=== PATIENT | male | born 1985 | race Caucasian/White ===

== ENCOUNTER 2017-10-05 11:55 | Emergency (ER) | payer OTHER, SELFPAY ==
[2017-10-05 13:23] LABS: Absolute Lymphocytes (CBC) 1.3 K/uL (0.7-4.9); Absolute Monocytes 1.1 K/uL (0.1-1.3); Basophils % 0.4 % (0-1.3); Eosinophils % 0.2 % (0-4.4); Hematocrit 46.5 % (39.6-49.0); Lymphocytes % 13.9 % (15.3-44.8); MCH 33.3 pg (27.0-35.0); MCV 96.5 fL (80-100); MPV 8.4 fL (7.6-11.3); Monocytes % 11.6 % (3.3-12.3); RBC Red Blood Cell Count 4.82 M/uL (4.33-5.43)
[2017-10-05 13:37] LABS: Urine Blood 1+ (NEG); Urine Glucose NEGATIVE (NEG); Urine Protein 1+ (NEG); Urine Specific Gravity >1.030 (1.005-1.030); Urine pH 5.5 (5.0-7.0)
[2017-10-05 13:44] LABS: Barbiturates NEGATIVE (NEGATIVE); Benzodiazepines NEGATIVE (NEGATIVE); Cocaine NEGATIVE (NEGATIVE); METHAMPHETAM NEGATIVE (NEGATIVE); Methadone NEGATIVE (NEGATIVE); Opiates NEGATIVE (NEGATIVE); Phencyclidine NEGATIVE (NEGATIVE); THC Cannibis POSITIVE (NEGATIVE)
[2017-10-05] MEDS ORDERED: NA CHLORIDE 0.9% 1,000 ML ONE ×2 (14:15→17:44)
[2017-10-05 14:54] LABS: Protime INR 1.05
[2017-10-05 15:09] LABS: ALT/SGPT 28 U/L (12-78); AST/SGOT 40 U/L (15-37); Albumin 4.9 g/dL (3.4-5.0); Alkaline Phosphatase 48 U/L (45-117); BUN Blood Urea Nitrogen 24 mg/dL (7-18); Bicarbonate 23 mmol/L (21-32); Bilirubin Direct 0.3 mg/dL (0-0.2); Bilirubin Total 1.5 mg/dL (0.2-1.0); Glucose Level 79 mg/dL (74-106); Potassium 4.3 mmol/L (3.5-5.1); Protein, Total 8.2 g/dL (6.4-8.2); Sodium Level 136 mmol/L (136-145)
[2017-10-05 15:35] LABS: Alcohol Serum/Plasma < 3 mg/dL (0-3)
[2017-10-05] MEDS ORDERED: D5LR 1,000 ML IV ONE (17:58)
--- NOTE | 2017-10-05 18:49 | EKG ---
Test Date: 2017-10-05 Test Time: 12:43:45 Wind Turbine Technician: DIMA-Humberto MEASUREMENT RESULTS: Intervals: Rate: 108 VA: 118 QRSD: 94 QT: 334 QTc: 447 [place]: P: 15 VA: 118 QRS: 39 T: 17 INTERPRETIVE STATEMENTS: Sinus tachycardia Nonspecific T wave abnormality Abnormal ECG No previous ECG available for comparison Electronically Signed On 10-05-17 18:47:18 CDT by Boni Moon
[2017-10-05 23:43] LABS: Thyroid Stimulating Hormone 2.69 uIU/mL (0.36-3.74)
[2017-10-06] MEDS ORDERED: NA CHLORIDE 0.9% 2,000 ML ONE (00:17)
[2017-10-06] MEDS ORDERED: NA CHLORIDE 0.9% 1,000 ML ONE (00:21)
--- NOTE | 2017-10-06 09:39 | RAD REPORT ---
EXAM DESCRIPTION: CT - Head Brain Wo Cont - 10/06/2017 4:33 am CLINICAL HISTORY: Hallucinations/alteration of awareness COMPARISON: None. TECHNIQUE: Computed axial tomography of the head was obtained. IV contrast was not requested. A preliminary report was generated by [employer] and reviewed prior to this dictation All CT scans are performed using dose optimization technique as appropriate and may include automated exposure control or mA/KV adjustment according to patient size. FINDINGS: An intracranial bleed is not seen . The ventricles are normal in caliber. No extra-axial fluid collection is noted. Fluid within the sinuses/ mastoids is not seen. IMPRESSION: No acute intracranial abnormality is seen. If patient's symptoms persist MRI of the bra in would be recommended.
[2017-10-07] MEDS ORDERED: LORAZEPAM 1 MG TABLET ONE ×2 (15:21→22:43)
--- NOTE | 2017-10-08 14:07 | EDPHYS ---
Physician Documentation [facility] Name: Devon Hwang Age: 31 yrs Sex: Male : 1985 Arrival Date: 10/05/2017 Time: 11:59 Bed 20 Private MD: None, None ED Physician Sachin Rodas HPI: 10/05 18:34 This 31 yrs old Male presents to ER via Ambulatory with complaints of Psych pm1 Problem. 18:34 The patient presents to the emergency department with psychosis, has experienced pm1 auditory hallucinations, has experienced visual hallucinations, suicide ideation. Past psychiatric history: Prior diagnosis: schizophrenia, PTSD, Psychiatric medications include: none, Primary psychiatric physician: the patient does not have a primary psychiatric physician, the patient has not had a prior suicide gesture, the patient has a previous inpatient psychiatric history, 1 year(s) ago, at In [place]. Severity of symptoms: Pain is currently a 0 / 10. The patient has not recently seen a physician. Patient was brought here by his sister. Patient went to the police department this AM to report to them that he has killed his family that he is staying with, sister and her children. Police verified that he had not killed them. Patient has difficulty telling the difference between his dreams and hallucinations versus reality per sister. Sister picked up the patient and brought him tot he emergency department to be evaluated. Patient has suicidal ideation but no plan. Patient has multiple auditory hallucinations, voices of multiple family members. Patient also has visual hallucinations, not thing concrete. They are blurry or objects spinning. Historical: - Allergies: 12:10 No Known Allergies; jl7 - Home Meds: 12:10 None [Active]; jl7 - PMHx: 12:10 Schizophrenia; PTSD; jl7 - Immunization history:: Adult Immunizations unknown. - Social history:: Smoking status: Patient/guardian denies using tobacco, Patient uses alcohol, on a daily basis. street drugs, LSD, marijuana. - Ebola Screening: : No symptoms or risks identified at this time. ROS: 18:34 Constitutional: Negative for fever, chills, and weight loss, Eyes: Negative for injury, pm1 pain, redness, and discharge, ENT: Negative for injury, pain, and discharge, Neck: Negative for injury, pain, and swelling, Cardiovascular: Negative for chest pain, palpitations, and edema, Respiratory: Negative for shortness of breath, cough, wheezing, and pleuritic chest pain, Abdomen/GI: Negative for abdominal pain, nausea, vomiting, diarrhea, and constipation, Back: Negative for injury and pain, : Negative for injury, bleeding, discharge, and swelling, MS/Extremity: Negative for injury and deformity, Skin: Negative for injury, rash, and discoloration, Neuro: Negative for headache, weakness, numbness, tingling, and seizure. 18:34 Psych: Positive for auditory hallucinations, visual hallucinations, suicidal ideation, Negative for homicidal ideation, suicide gesture. Exam: 18:34 Constitutional: This is a well developed, well nourished patient who is awake, alert, pm1 and in no acute distress. Head/Face: Normocephalic, atraumatic. Eyes: Pupils equal round and reactive to light, extra-ocular motions intact. Lids and lashes normal. Conjunctiva and sclera are non-icteric and not injected. Cornea within normal limits. Periorbital areas with no swelling, redness, or edema. ENT: Nares patent. No nasal discharge, no septal abnormalities noted. Tympanic membranes are normal and external auditory canals are clear. Oropharynx with no redness, swelling, or masses, exudates, or evidence of obstruction, uvula midline. Mucous membranes moist. Neck: Trachea midline, no thyromegaly or masses palpated, and no cervical lymphadenopathy. Supple, full range of motion without nuchal rigidity, or vertebral point tenderness. No Meningismus. Chest/axilla: Normal chest wall appearance and motion. Nontender with no deformity. No lesions are appreciated. Cardiovascular: Regular rate and rhythm with a normal S1 and S2. No gallops, murmurs, or rubs. Normal PMI, no JVD. No pulse deficits. Respiratory: Lungs have equal breath sounds bilaterally, clear to auscultation and percussion. No rales, rhonchi or wheezes noted. No increased work of breathing, no retractions or nasal flaring. Abdomen/GI: Soft, non-tender, with normal bowel sounds. No distension or tympany. No guarding or rebound. No evidence of tenderness throughout. Back: No spinal tenderness. No costovertebral tenderness. Full range of motion. Skin: Warm, dry with normal turgor. Normal color with no rashes, no lesions, and no evidence of cellulitis. MS/ Extremity: Pulses equal, no cyanosis. Neurovascular intact. Full, normal range of motion. 18:34 Neuro: Orientation: to person, place, time, situation, Motor: moves all fours, strength is normal, Gait: is steady, at a normal pace, without difficulty. 18:34 Psych: Behavior/mood is cooperative, Affect is flat, Delusions/hallucinations are present and described as Patient talking to auditory hallucination while evaluating him. He reported it was a family member talking to him. Vital Signs: 12:10 BP 158 / 100; Pulse 105; Resp 18; Temp 98.7; Pulse Ox 99% ; Weight 72.57 kg; Height 5 jl7 ft. 8 in. (172.72 cm); Pain 0/10; 17:00 BP 140 / 75; Pulse 92; Resp 18; Temp 97.8(O); Pulse Ox 100% on R/A; hj 20:00 BP 144 / 82 LA Supine (auto/); Pulse 104; Resp 18; Temp 98.4(O); Pulse Ox 100% on R/A; ms1 23:02 BP 143 / 71 LA Supine (auto/); Pulse 95 MON; Resp 18; Temp 98.1(O); Pulse Ox 100% on ms1 R/A; 10/06 04:03 BP 129 / 70 LA Supine (auto/); Pulse 98 MON; Resp 18 S; Temp 98.5(O); Pulse Ox 100% on ms1 R/A; 08:06 BP 141 / 81; Pulse 91; Resp 18; Temp 97.9; Pain 0/10; wj1 12:34 BP 128 / 78; Pulse 84; Resp 16; Pulse Ox 100% on R/A; Pain 0/10; em 16:42 BP 136 / 71; Pulse 88; Resp 16; Temp 98.3(O); Pulse Ox 99% on R/A; Pain 0/10; em 18:46 BP 142 / 82; Pulse 78; Resp 18; Pulse Ox 99% on R/A; Pain 0/10; em 19:00 BP 142 / 86; Pulse 88; Resp 16; Temp 96.8; Pulse Ox 98% ; bp 22:00 BP 142 / 81; Pulse 76; Resp 18; Temp 97.8; Pulse Ox 99% on R/A; Pain 0/10; fu 10/07 01:30 BP 132 / 71 LA; Pulse 81 MON; Resp 18 S; Temp 98.7(O); Pulse Ox 99% on R/A; Pain 0/10; fu 05:42 BP 131 / 78 LA Supine; Pulse 67; Resp 16 S; Temp 97.8(O); Pulse Ox 99% on R/A; Pain fu 0/10; 07:00 BP 139 / 72; Pulse 81; Resp 17; Temp 97.6; Pulse Ox 98% ; Pain 0/10; ap 11:00 BP 138 / 80; Pulse 80; Resp 18; Temp 96.9; Pulse Ox 99% ; Pain 0/10; ap 15:00 BP 140 / 69; Pulse 83; Resp 18; Temp 96.6; Pulse Ox 97% ; Pain 0/10; ap 19:15 BP 148 / 90; Pulse 92; Resp 18; Temp 98.7; Pulse Ox 98% on R/A; mw2 23:26 BP 160 / 84; Pulse 72; Resp 17; Temp 98.0; Pulse Ox 98% on R/A; Pain 0/10; mw2 10/08 03:26 BP 143 / 88; Pulse 82; Resp 16; Temp 97.9; Pulse Ox 99% on R/A; Pain 0/10; mw2 07:26 BP 146 / 85; Pulse 88; Resp 16; Temp 97.4; Pulse Ox 98% ; Pain 0/10; ss 11:00 BP 145 / 78; Pulse 81; Resp 18; Pulse Ox 100% ; ms 14:04 BP 142 / 82; Pulse 82; Resp 18; Temp 98.2; Pulse Ox 100% ; Pain 0/10; ms 10/05 12:10 Body Mass Index 24.33 (72.57 kg, 172.72 cm) jl7 MDM: 10/05 12:37 Patient medically screened. pm1 18:45 Data reviewed: vital signs. Data interpreted: Pulse oximetry: on room air is 99 %. pm1 Interpretation: normal. 22:28 Physician consultation: Psychiatrist Gnosticist Requested CPK, CT head, and TSH. pm1 Callback with results. 10/05 12:37 Order name: Acetaminophen; Complete Time: 15:42 pm1 10/05 12:37 Order name: Basic Metabolic Panel; Complete Time: 15:42 pm1 10/05 12:37 Order name: CBC with Diff; Complete Time: 14:08 pm1 10/05 12:37 Order name: ETOH Level; Complete Time: 15:42 pm1 10/05 12:37 Order name: Hepatic Function; Complete Time: 15:42 pm1 10/05 12:37 Order name: PT-INR; Complete Time: 15:10 pm10/05 12:37 Order name: Ptt, Activated; Complete Time: 15:10 pm10/05 12:37 Order name: Salicylate; Complete Time: 15:42 pm1 10/05 12:37 Order name: Urine Drug Screen; Complete Time: 14:08 pm10/05 13:12 Order name: Urine Dipstick--Ancillary (enter results); Complete Time: 14:08 10/05 22:32 Order name: CPK; Complete Time: 23:51 pm10/05 22:32 Order name: CT Head Brain wo Cont; Complete Time: 09:54 pm10/05 22:32 Order name: TSH; Complete Time: 23:51 pm10/06 05:50 Order name: CPK; Complete Time: 06:56 2 10/05 12:37 Order name: EKG; Complete Time: 12:38 pm10/05 13:23 Order name: Diet Regular; Complete Time: 13:23 3 10/06 07:07 Order name: Diet Regular; Complete Time: 07:07 10/06 07:09 Order name: Diet Regular; Complete Time: 07:09 10/06 11:05 Order name: Diet Regular; Complete Time: 11:05 5 10/06 17:11 Order name: Diet Regular; Complete Time: 17:11 10/07 07:06 Order name: Diet Regular; Complete Time: 07:06 10/07 10:34 Order name: Diet Regular; Complete Time: 10:34 10/05 12:37 Order name: EKG - Nurse/Tech; Complete Time: 12:57 pm10/05 12:37 Order name: IV Saline Lock; Complete Time: 13:25 pm1 10/05 12:37 Order name: Labs collected and sent; Complete Time: 13:25 pm10/05 12:37 Order name: Urine Dipstick-Ancillary (obtain specimen); Complete Time: 13:09 pm1 10/05 13:34 Order name: Labs - recollect needed; Complete Time: 14:07 10/07 16:59 Order name: Diet Regular; Complete Time: 16:59 10/08 07:03 Order name: Diet Regular; Complete Time: 07:03 5 10/08 13:06 Order name: Diet Regular; Complete Time: 13:06 10/08 14:02 Order name: Vital Signs; Complete Time: 14:33 charleen Administered Medications: 14:27 Not Given (Patient Refused): NS 0.9% 1000 ml IV at 1000 ml once hj 17:50 Drug: NS 0.9% 1000 ml Route: IV; Rate: 1 bolus; Site: left forearm; 10/06 00:25 Follow up: Response: No adverse reaction; IV Status: Completed infusion [facility] 10/05 17:55 Drug: D5-LR 1000 ml Route: IV; Rate: calculated rate; Site: left forearm; 10/06 00:25 Follow up: Response: No adverse reaction; IV Status: Completed infusion [facility] 10/05 23:52 CANCELLED (Physician Discretion): NS 0.9% 1000 ml IV at 1 bolus Per protocol; 1000 mL cp bolus 10/06 00:25 Drug: NS 0.9% 1000 ml Route: IV; Rate: 1 bolus; Site: right forearm; j 00:25 Drug: NS 0.9% 1000 ml Route: IV; Rate: 1 bolus; Site: right forearm; [facility] 10/07 15:25 Drug: Ativan 2 mg Route: PO; em 17:55 Follow up: Response: No adverse reaction; Anxiety decreased em 22:41 Drug: Ativan 2 mg Route: PO; 1 10/08 06:54 Follow up: Response: No adverse reaction [facility] Disposition: 14:06 Co-signature as Attending Physician, Sachin Rodas MD I agree with the assessment and [facility] plan of care. Disposition: 10/08/17 14:06 Transfer ordered to [facility]. Diagnosis are Schizophrenia, Abuse of non-psychoactive substances. - Reason for transfer: Higher level of care. - Accepting physician is to dr benavides. - Condition is Stable. - Problem is new. - Symptoms have improved. Signatures: Dispatcher [employer] EDMS DirZofia wang Corey, MD MD cha Munoz, Edgar, ECHOCARDIOLOGIST ECHOCARDIOLOGIST Denis Luna MD MD rn Joaquin, Henry RN RN Sachin Moran, LUIS SMITH cp Tito Carvajal, SENIOR SOFTWARE PROJECT MANAGER SENIOR SOFTWARE PROJECT MANAGER pm1 Leeroy Martinez, ABDIFATAH RN jl7 Jose A Cruz MD MD wa Davies, Jonathon RN RN jd3 Pauline Anthony RN RN bs1 Corrections: (The following items were deleted from the chart) 10/05 23:52 23:52 NS 0.9% 1000 ml IV at 1 bolus Per protocol; 1000 mL bolus ordered. cp cp 10/08 16:19 14:06 10/08/2017 14:06 Transfer ordered to [facility]. Diagnosis is Schizophrenia; hj Abuse of non-psychoactive substances. Reason for transfer: Higher level of care. Accepting physician is to dr benavides. Condition is Stable. Problem is new. Symptoms have improved. charleen
--- NOTE | 2017-10-08 14:07 | ER ---
Nurse's Notes [facility] Name: Devon Hwang Age: 31 yrs Sex: Male : 1985 Arrival Date: 10/05/2017 Time: 11:59 Bed 20 Private MD: None, None Diagnosis: Schizophrenia;Abuse of non-psychoactive substances Presentation: 10/05 12:07 Presenting complaint: Patient states: "I'm having a real schizophrenic trip.". jl7 Transition of care: patient was not received from another setting of care. Onset of symptoms was October 05, 2017. Risk Assessment: Do you want to hurt yourself or someone else? Patient reports desire/thoughts of hurting themselves or someone else. Provider notified. Initial Sepsis Screen: Does the patient meet any 2 criteria? No. Patient's initial sepsis screen is negative. Does the patient have a suspected source of infection? No. Patient's initial sepsis screen is negative. 12:07 [facility] 12[facility] Care prior to arrival: None. hj Triage Assessment: 12:45 General: Appears in no apparent distress. uncomfortable, Behavior is calm, cooperative, hj appropriate for age. Pain: Denies pain. EENT: No signs and/or symptoms were reported regarding the EENT system. Neuro: Level of Consciousness is awake, alert, obeys commands, Oriented to person, place, time, situation, Appropriate for age. Cardiovascular: Capillary refill < 3 seconds Patient's skin is warm and dry. Respiratory: Airway is patent Respiratory effort is even, unlabored, Respiratory pattern is regular, symmetrical. GI: No signs and/or symptoms were reported involving the gastrointestinal system. : No signs and/or symptoms were reported regarding the genitourinary system. Derm: No signs and/or symptoms reported regarding the dermatologic system. Musculoskeletal: No signs and/or symptoms reported regarding the musculoskeletal system. Historical: - Allergies: 12:10 No Known Allergies; jl7 - Home Meds: 12:10 None [Active]; jl7 - PMHx: 12:10 Schizophrenia; PTSD; jl7 - Immunization history:: Adult Immunizations unknown. - Social history:: Smoking status: Patient/guardian denies using tobacco, Patient uses alcohol, on a daily basis. street drugs, LSD, marijuana. - Ebola Screening: : No symptoms or risks identified at this time. Screenin:44 Abuse screen: Denies threats or abuse. Denies injuries from another. Nutritional hj screening: No deficits noted. Tuberculosis screening: No symptoms or risk factors identified. Fall Risk None identified. Assessment: 13:15 General: Appears in no apparent distress. uncomfortable, Behavior is calm, cooperative, hj appropriate for age. Pain: Denies pain. Neuro: Level of Consciousness is awake, alert, obeys commands, Oriented to person, place, time, situation, Appropriate for age Reports schiz trip for 3-4 days in the [place];. Cardiovascular: Denies chest pain, Capillary refill < 3 seconds Patient's skin is warm and dry. Respiratory: Airway is patent Respiratory effort is even, unlabored, Respiratory pattern is regular, symmetrical. GI: No signs and/or symptoms were reported involving the gastrointestinal system. : No signs and/or symptoms were reported regarding the genitourinary system. EENT: No signs and/or symptoms were reported regarding the EENT system. Derm: No signs and/or symptoms reported regarding the dermatologic system. Musculoskeletal: No signs and/or symptoms reported regarding the musculoskeletal system. 14:28 Reassessment: pt pulled the IV out and refused IV fluids;. hj 14:28 Reassessment: provider aware;. hj 14:44 Reassessment: encouraged to drink more water; gave 3 cups of water with ice;. hj 15:15 Reassessment: ruy guaman was called, when pt tried to run outside the room because in hj his head, voices "was telling him his family was in trouble and he wanted to help" and then he sees blurry characters; he went outside the lobby on pt gown and blanket, security brought him back to the room; provider spoke with him;. 15:48 Reassessment: Lexi- pt's sister- [phone]. hj 15:58 Reassessment: sister back in the room; provider informed;. hj 16:06 Reassessment: sister with provider discussing pt case;. hj 16:43 Reassessment: new sitter with patient;. hj 17:45 Reassessment: Patient and/or family updated on plan of care and expected duration. Pain hj level reassessed. Patient is alert, oriented x 3, equal unlabored respirations, skin warm/dry/pink. [facility] Rep in room;. Reassessment: Patient and/or family updated on plan of care and expected duration. Pain level reassessed. Patient is alert, oriented x 3, equal unlabored respirations, skin warm/dry/pink. pt agreed for RN to start another IV and promised not to pull it out and understands the goal of bringing his ketones down;. 18:29 Reassessment: Patient and/or family updated on plan of care and expected duration. Pain hj level reassessed. Patient is alert, oriented x 3, equal unlabored respirations, skin warm/dry/pink. [facility] Rep done with visit;. 19:11 Reassessment: Patient appears in no apparent distress at this time. No changes from [facility] previously documented assessment. Patient and/or family updated on plan of care and expected duration. Pain level reassessed. Patient is alert, oriented x 3, equal unlabored respirations, skin warm/dry/pink. pt reassured that if he needs help to ask nurse. 19:20 Reassessment: pt pulled out IV stating "I thought I heard my family calling me jd3 outside." pt reassured that no one was here. pt resting in bed, provider notified, no new orders at this time. 19:25 Reassessment: pt encouraged per providers instruction to drink water. jd3 20:00 Reassessment: Patient appears in no apparent distress at this time. Patient and/or jd3 family updated on plan of care and expected duration. Pain level reassessed. Patient is alert, oriented x 3, equal unlabored respirations, skin warm/dry/pink. family/friend at bedside. 20:27 Reassessment: Patient appears in no apparent distress at this time. pt up to bedside to jd3 urinate. 21:00 Reassessment: Patient appears in no apparent distress at this time. Patient and/or jd3 family updated on plan of care and expected duration. Pain level reassessed. Patient is alert, oriented x 3, equal unlabored respirations, skin warm/dry/pink. pt resting in bed, family/friend at bedside. no distress noted at this time. 22:00 Reassessment: Patient appears in no apparent distress at this time. No changes from jd3 previously documented assessment. Patient and/or family updated on plan of care and expected duration. Pain level reassessed. Patient is alert, oriented x 3, equal unlabored respirations, skin warm/dry/pink. 23:00 Reassessment: Patient appears in no apparent distress at this time. No changes from jd3 previously documented assessment. Patient and/or family updated on plan of care and expected duration. Pain level reassessed. Patient is alert, oriented x 3, equal unlabored respirations, skin warm/dry/pink. 23:04 Reassessment: lab at bedside drawing blood. jd3 10/06 00:00 Reassessment: Patient appears in no apparent distress at this time. No changes from jd3 previously documented assessment. Patient and/or family updated on plan of care and expected duration. Pain level reassessed. Patient is alert, oriented x 3, equal unlabored respirations, skin warm/dry/pink. 01:00 Reassessment: Patient appears in no apparent distress at this time. Patient and/or [facility] family updated on plan of care and expected duration. Pain level reassessed. Patient is alert, oriented x 3, equal unlabored respirations, skin warm/dry/pink. pt resting in bed with eyes closed, even and unlabored respirations, no distress noted a this time. 02:00 Reassessment: Patient appears in no apparent distress at this time. No changes from jd3 previously documented assessment. Patient and/or family updated on plan of care and expected duration. Pain level reassessed. Patient is alert, oriented x 3, equal unlabored respirations, skin warm/dry/pink. 03:00 Reassessment: Patient appears in no apparent distress at this time. No changes from jd3 previously documented assessment. Patient and/or family updated on plan of care and expected duration. Pain level reassessed. Patient is alert, oriented x 3, equal unlabored respirations, skin warm/dry/pink. 04:00 Reassessment: Patient appears in no apparent distress at this time. No changes from jd3 previously documented assessment. Patient and/or family updated on plan of care and expected duration. Pain level reassessed. Patient is alert, oriented x 3, equal unlabored respirations, skin warm/dry/pink. 05:00 Reassessment: Patient appears in no apparent distress at this time. No changes from jd3 previously documented assessment. Patient and/or family updated on plan of care and expected duration. Pain level reassessed. Patient is alert, oriented x 3, equal unlabored respirations, skin warm/dry/pink. 06:00 Reassessment: Patient appears in no apparent distress at this time. No changes from jd3 previously documented assessment. Patient and/or family updated on plan of care and expected duration. Pain level reassessed. Patient is alert, oriented x 3, equal unlabored respirations, skin warm/dry/pink. 06:03 Reassessment: lab at bedside collecting repeat labs. jd3 07:05 General: Appears in no apparent distress. comfortable, Behavior is calm, cooperative, em Reports hearing auditory hallucinations, "people having conversations, but not telling me to hurt myself, I can't tell if its real or not, I think my sister was here yesterday but I might have just hallucinated it" reports feeling better, denies SI or HI. Pain: Denies pain. Neuro: Level of Consciousness is awake, alert, obeys commands, Oriented to person, place, time, situation. Cardiovascular: Capillary refill < 3 seconds Patient's skin is warm and dry. Respiratory: Airway is patent Respiratory effort is even, unlabored, Respiratory pattern is regular, symmetrical. GI: Abdomen is flat. : No signs and/or symptoms were reported regarding the genitourinary system. EENT: No signs and/or symptoms were reported regarding the EENT system. Derm: Skin is intact, Skin is pink, warm \\T\\ dry. Musculoskeletal: Range of motion: intact in all extremities. 08:10 Reassessment: Patient appears in no apparent distress at this time. I agree with above iw assessment by Juan Crockett LVN. 08:30 Reassessment: Patient appears in no apparent distress at this time. Patient and/or em family updated on plan of care and expected duration. Pain level reassessed. Patient is alert, oriented x 3, equal unlabored respirations, skin warm/dry/pink. 09:30 Reassessment: Patient appears in no apparent distress at this time. Patient and/or em family updated on plan of care and expected duration. Pain level reassessed. Patient is alert, oriented x 3, equal unlabored respirations, skin warm/dry/pink. eating breakfast tray, tolerated well, no needs at this time. 10:34 Reassessment: Patient and/or family updated on plan of care and expected duration. Pain em level reassessed. Patient is alert, oriented x 3, equal unlabored respirations, skin warm/dry/pink. pt request to use phone, used phone at nurse station, spoke with sister Yaz), calm and cooperative. 11:17 Reassessment: Patient appears in no apparent distress at this time. Patient and/or em family updated on plan of care and expected duration. Pain level reassessed. Patient is alert, oriented x 3, equal unlabored respirations, skin warm/dry/pink. Sister at bedside. 12:37 Reassessment: Patient appears in no apparent distress at this time. Patient and/or em family updated on plan of care and expected duration. Pain level reassessed. Patient is alert, oriented x 3, equal unlabored respirations, skin warm/dry/pink. currently eating lunch tray, tolerated well. 14:21 Reassessment: Patient appears in no apparent distress at this time. Patient and/or em family updated on plan of care and expected duration. Pain level reassessed. Patient is alert, oriented x 3, equal unlabored respirations, skin warm/dry/pink. no needs at this time, waiting for facility. 15:28 Reassessment: Patient appears in no apparent distress at this time. Patient and/or em family updated on plan of care and expected duration. Pain level reassessed. Patient is alert, oriented x 3, equal unlabored respirations, skin warm/dry/pink. resting with eyes closed. 17:50 Reassessment: Patient appears in no apparent distress at this time. Patient and/or em family updated on plan of care and expected duration. Pain level reassessed. Patient is alert, oriented x 3, equal unlabored respirations, skin warm/dry/pink. Patient denies pain at this time. 18:09 Reassessment: Patient appears in no apparent distress at this time. request some ice em water, pt still currently has auditory hallucinations, reports "just too much to handle, but I'll be ok, not telling me anything just talking" denies SI or HI. 19:00 Reassessment: RECD REPORT FROM JUAN GARDINER. 31YO WM P/W +AUDITORY HALLUCINATION, DENIES bp SI/HI. DISPOSITION AND POSSIBLE PSYCH PLACEMENT PENDING. 19:22 General: Appears in no apparent distress. comfortable, Behavior is calm, cooperative, fu appropriate for age. Pain: Denies pain. Neuro: Level of Consciousness is awake, alert, obeys commands, Oriented to person, place, situation, unable to remember the date and day of the week. Patient oriented to today's date, time and day.. Respiratory: Airway is patent Respiratory effort is even, unlabored, Respiratory pattern is regular, symmetrical. GI: No signs and/or symptoms were reported involving the gastrointestinal system. stated last BM was couple of days ago. : No signs and/or symptoms were reported regarding the genitourinary system. EENT: No signs and/or symptoms were reported regarding the EENT system. Derm: Skin is intact, Skin is pink, warm \\T\\ dry. 20g IV access to right forearm. Musculoskeletal: Range of motion: intact in all extremities. 20:50 Reassessment: Patient appears in no apparent distress at this time. Patient is alert, fu oriented x 3, equal unlabored respirations, skin warm/dry/pink. Patient denies pain at this time. Respiratory: Airway is patent Respiratory effort is even, unlabored, Respiratory pattern is regular, symmetrical. : No signs and/or symptoms were reported regarding the genitourinary system. 21:50 Reassessment: Patient appears in no apparent distress at this time. Patient is alert, fu oriented x 3, equal unlabored respirations, skin warm/dry/pink. Patient denies pain at this time. patient reports auditory and visual hallucinations.. 22:40 Reassessment: Patient appears in no apparent distress at this time. Patient is alert, fu oriented x 3, equal unlabored respirations, skin warm/dry/pink. Patient denies pain at this time. Respiratory: Airway is patent Respiratory effort is even, unlabored, Respiratory pattern is regular, symmetrical. : No signs and/or symptoms were reported regarding the genitourinary system. Musculoskeletal: No signs and/or symptoms reported regarding the musculoskeletal system. Range of motion: intact in all extremities. 23:29 Reassessment: Patient appears in no apparent distress at this time. Patient is alert, fu oriented x 3, equal unlabored respirations, skin warm/dry/pink. watching TV.. Neuro: Level of Consciousness is awake, alert, obeys commands, Oriented to person, place, situation, Appropriate for age. Neuro: Reports auditory, visual hallucinations. Respiratory: Airway is patent Respiratory effort is even, unlabored, Respiratory pattern is regular, symmetrical. Musculoskeletal: No signs and/or symptoms reported regarding the musculoskeletal system. Range of motion: intact in all extremities. 10/07 00:24 Reassessment: Patient appears in no apparent distress at this time. Pain: Denies pain. fu Neuro: Level of Consciousness is awake, alert, obeys commands, Oriented to person, place, situation, Appropriate for age. Neuro: Denies weakness headache. Respiratory: Airway is patent Respiratory effort is even, unlabored, Respiratory pattern is regular, symmetrical. Musculoskeletal: No signs and/or symptoms reported regarding the musculoskeletal system. Range of motion: intact in all extremities. 01:17 Reassessment: Patient appears in no apparent distress at this time. Pain: Denies pain. fu Neuro: Level of Consciousness is awake, alert, obeys commands, Oriented to person, place, situation, Moves all extremities. Gait is steady. Cardiovascular: Denies chest pain, Capillary refill < 3 seconds. Respiratory: Airway is patent Respiratory pattern is regular, symmetrical, Denies cough. GI: Patient currently denies abdominal pain. Musculoskeletal: No signs and/or symptoms reported regarding the musculoskeletal system. 02:01 Reassessment: Patient appears in no apparent distress at this time. Pain: Denies pain. fu Neuro: Level of Consciousness is awake, alert, obeys commands, Oriented to person, place, time, situation, Moves all extremities. Gait is steady. Respiratory: Airway is patent Respiratory effort is even, unlabored, Respiratory pattern is regular, symmetrical, Denies shortness of breath. 03:00 Reassessment: Patient appears in no apparent distress at this time. Patient is alert, fu oriented x 3, equal unlabored respirations, skin warm/dry/pink. Patient denies pain at this time. Respiratory: Airway is patent Respiratory effort is even, unlabored, Respiratory pattern is regular, symmetrical, Denies shortness of breath. 04:01 Reassessment: appears to be sleeping. Respiratory: Respiratory effort is even, fu unlabored, Respiratory pattern is regular, symmetrical. 05:34 Reassessment: Patient appears in no apparent distress at this time. Patient is alert, fu oriented x 3, equal unlabored respirations, skin warm/dry/pink. Patient denies pain at this time. 06:04 Reassessment: Patient appears in no apparent distress at this time. Pain: Denies pain. fu Neuro: Level of Consciousness is awake, alert, obeys commands, Oriented to person, place, situation, Appropriate for age Moves all extremities. Gait is steady, Denies weakness. Cardiovascular: Capillary refill < 3 seconds Patient's skin is warm and dry. Respiratory: Airway is patent Respiratory effort is even, unlabored, Respiratory pattern is regular, symmetrical, Denies shortness of breath. : No signs and/or symptoms were reported regarding the genitourinary system. EENT: No signs and/or symptoms were reported regarding the EENT system. Derm: No signs and/or symptoms reported regarding the dermatologic system. Musculoskeletal: No signs and/or symptoms reported regarding the musculoskeletal system. Range of motion: intact in all extremities. 07:07 Reassessment: Patient appears in no apparent distress at this time. Patient and/or em family updated on plan of care and expected duration. Pain level reassessed. Patient is alert, oriented x 3, equal unlabored respirations, skin warm/dry/pink. "I have 3 voices that stick around, they just have a conversation and I just listen, they don't tell me to hurt myself or anything" Patient denies pain at this time. 08:29 Reassessment: Patient appears in no apparent distress at this time. Patient and/or em family updated on plan of care and expected duration. Pain level reassessed. Patient is alert, oriented x 3, equal unlabored respirations, skin warm/dry/pink. 11:30 Reassessment: Patient appears in no apparent distress at this time. Patient and/or em family updated on plan of care and expected duration. Pain level reassessed. Patient is alert, oriented x 3, equal unlabored respirations, skin warm/dry/pink. eating lunch tray, no needs at this time. 13:38 Reassessment: Patient appears in no apparent distress at this time. Patient and/or em family updated on plan of care and expected duration. Pain level reassessed. Patient is alert, oriented x 3, equal unlabored respirations, skin warm/dry/pink. family at bedside. 15:01 Reassessment: Patient appears in no apparent distress at this time. Patient and/or em family updated on plan of care and expected duration. Pain level reassessed. Patient is alert, oriented x 3, equal unlabored respirations, skin warm/dry/pink. pt request something to sleep, still hears voices. 16:00 Reassessment: Patient appears in no apparent distress at this time. Patient and/or em family updated on plan of care and expected duration. Pain level reassessed. Patient is alert, oriented x 3, equal unlabored respirations, skin warm/dry/pink. no needs at this time. 17:00 Reassessment: Patient appears in no apparent distress at this time. Patient and/or em family updated on plan of care and expected duration. Pain level reassessed. Patient is alert, oriented x 3, equal unlabored respirations, skin warm/dry/pink. 18:00 Reassessment: Patient appears in no apparent distress at this time. Patient and/or em family updated on plan of care and expected duration. Pain level reassessed. Patient is alert, oriented x 3, equal unlabored respirations, skin warm/dry/pink. pt requesting more Ativan states it helped him and wants some later in the evening, Dr. Rodas notified. 19:10 Reassessment: Report received from CHANCE Mei. bs1 19:10 General: Appears in no apparent distress. comfortable, Behavior is calm, cooperative, bs1 appropriate for age. Pain: Denies pain. Neuro: Level of Consciousness is awake, alert, obeys commands, Oriented to person, place, time, situation, Appropriate for age. Cardiovascular: Denies chest pain, shortness of breath, Heart tones S1 S2 Capillary refill < 3 seconds Patient's skin is warm and dry. Respiratory: Airway is patent Trachea midline Respiratory effort is even, unlabored, Respiratory pattern is regular, symmetrical, Breath sounds are clear bilaterally. GI: No signs and/or symptoms were reported involving the gastrointestinal system. : No signs and/or symptoms were reported regarding the genitourinary system. EENT: No signs and/or symptoms were reported regarding the EENT system. Derm: Skin is intact. Musculoskeletal: No signs and/or symptoms reported regarding the musculoskeletal system. 19:30 Reassessment: Patients Aunt "Alondra Benavidez" Left her number for nurse to call when bs1 patient gets transferred. [phone]. Patients states "You may release information to my aunt." Patient has been staying with Aunt prior to hospitalization. 20:00 Reassessment: Refilled patients water jug. bs1 21:00 Reassessment: Patient appears in no apparent distress at this time. Patient and/or bs1 family updated on plan of care and expected duration. Pain level reassessed. Patient is alert, oriented x 3, equal unlabored respirations, skin warm/dry/pink. Patient lying in bed. No distress noted. Hearing voices, talking to himself. 22:25 Reassessment: Informed Dr Leal that patient is requesting Ativan PO. gave nurse bs1 verbal orders to give ativan 2mg po x1. 10/08 00:00 Reassessment: Patient appears in no apparent distress at this time. Patient sleeping bs1 after giving PO Ativan. Even respirations. Resting well. No further needs at this time. Sitter at bedside. 01:00 Reassessment: Patient appears in no apparent distress at this time. No changes from bs1 previously documented assessment. 02:30 Reassessment: Patient appears in no apparent distress at this time. Patient snoring. bs1 Even respirations. No needs at this time. 04:30 Reassessment: Patient appears in no apparent distress at this time. No changes from bs1 previously documented assessment. No further needs. Will continue to assess. 06:45 Reassessment: Patient appears in no apparent distress at this time. Patient and/or bs1 family updated on plan of care and expected duration. Pain level reassessed. Patient is alert, oriented x 3, equal unlabored respirations, skin warm/dry/pink. No further needs. 07:10 General: Appears in no apparent distress. comfortable, Behavior is calm, cooperative, hj appropriate for age. Pain: Denies pain. Neuro: Level of Consciousness is awake, alert, obeys commands, Oriented to person, place, time, situation, Appropriate for age Moves all extremities. Gait is steady, Reports auditory hallucination. Cardiovascular: Denies chest pain, shortness of breath, Heart tones S1 S2 present Capillary refill < 3 seconds Patient's skin is warm and dry. GI: No signs and/or symptoms were reported involving the gastrointestinal system. : No signs and/or symptoms were reported regarding the genitourinary system. EENT: No signs and/or symptoms were reported regarding the EENT system. Derm: No signs and/or symptoms reported regarding the dermatologic system. Musculoskeletal: No signs and/or symptoms reported regarding the musculoskeletal system. 09:00 Reassessment: Spoke with Rosalina with [facility] who reports that she has called [facility] who reported to her that they have three beds available. Still have not received acceptance from facility at this time. 09:35 Reassessment: requested forms faxed to [facility]. Will call [facility] back to see if forms were received. 10:00 Reassessment: Called Abby with [facility] who reports she has not ss received requested forms. Will resend now. 12:12 Reassessment: faxed voluntary form to [facility] as requested. Will call [facility] back in a few minutes to see if she received fax. 12:21 Reassessment: spoke with Raudel at [facility] who reports that [facility] has stepped out and will be back shortly. Awaiting numbers to give doc to doc report and nurse to nurse. 15:00 Reassessment: Spoke with Abby with [facility] who reports to call back ss in 10 minutes to given nurse to nurse report. 15:10 Reassessment: Patient and/or family updated on plan of care and expected duration. Pain hj level reassessed. Patient is alert, oriented x 3, equal unlabored respirations, skin warm/dry/pink. attempted to call report and spoke with ABDIFATAH Hale, first attempt, nurse refused to give report because, she doesn't know, Dr. Barahona, hanged up and spoke to [facility] church secretary, called [facility] facility; to update me for info;. 15:10 Reassessment: called report and spoke with ABDIFATAH Hale with no questions;. Psych: 10/05 12:12 Subjective: Patient's mood is hopeless, Delusions are grandiose, Hallucinations are jl7 auditory, suspected, Having thoughts of suicide. Denies suicidal plan. Objective: Patient is cooperative, using poor eye contact, Speech is rapid, Affect is blunted. 13:16 Interventions: Removed personal items and placed in bag. Patient placed in hospital hj gown. Searched person for dangerous items. Urine collected and sent for urine drug test. Belonging list filled out. Suicide Risk Assessment: Sad Person Scale: Sex of patient: Male: Score 1 point. Age of patient: Score 1 point if patient 15-34. Depression: Score 0 point if signs of depression are not present. Previous Attempt: Score 0 point if patient has not previously attempted suicide. Substance Abuse: Score 1 point if patient abuses alcohol or drugs. Rational Thinking: Score 0 point if patient has rational thinking. Social Support: Score 1 point if social support is lacking and/or unavailable. Organized Plan: Score 0 if patient did not have an organized plan in place. Relationship: Score 1 point if patient is , , , or for a single male Chronic Sickness: Score 1 point if patient has illness, chronic, debilitating, or severe. Safety Checks: Personal items have been removed. Door is open. No visitors are present at this time. Patient uses Patient uses marijuana. Commitment: Patient will be a voluntary commitment. Vital Signs: 12:10 BP 158 / 100; Pulse 105; Resp 18; Temp 98.7; Pulse Ox 99% ; Weight 72.57 kg; Height 5 jl7 ft. 8 in. (172.72 cm); Pain 0/10; 17:00 BP 140 / 75; Pulse 92; Resp 18; Temp 97.8(O); Pulse Ox 100% on R/A; hj 20:00 BP 144 / 82 LA Supine (auto/); Pulse 104; Resp 18; Temp 98.4(O); Pulse Ox 100% on R/A; ms1 23:02 BP 143 / 71 LA Supine (auto/); Pulse 95 MON; Resp 18; Temp 98.1(O); Pulse Ox 100% on ms1 R/A; 10/06 04:03 BP 129 / 70 LA Supine (auto/); Pulse 98 MON; Resp 18 S; Temp 98.5(O); Pulse Ox 100% on ms1 R/A; 08:06 BP 141 / 81; Pulse 91; Resp 18; Temp 97.9; Pain 0/10; wj1 12:34 BP 128 / 78; Pulse 84; Resp 16; Pulse Ox 100% on R/A; Pain 0/10; em 16:42 BP 136 / 71; Pulse 88; Resp 16; Temp 98.3(O); Pulse Ox 99% on R/A; Pain 0/10; em 18:46 BP 142 / 82; Pulse 78; Resp 18; Pulse Ox 99% on R/A; Pain 0/10; em 19:00 BP 142 / 86; Pulse 88; Resp 16; Temp 96.8; Pulse Ox 98% ; bp 22:00 BP 142 / 81; Pulse 76; Resp 18; Temp 97.8; Pulse Ox 99% on R/A; Pain 0/10; fu 10/07 01:30 BP 132 / 71 LA; Pulse 81 MON; Resp 18 S; Temp 98.7(O); Pulse Ox 99% on R/A; Pain 0/10; fu 05:42 BP 131 / 78 LA Supine; Pulse 67; Resp 16 S; Temp 97.8(O); Pulse Ox 99% on R/A; Pain fu 0/10; 07:00 BP 139 / 72; Pulse 81; Resp 17; Temp 97.6; Pulse Ox 98% ; Pain 0/10; ap 11:00 BP 138 / 80; Pulse 80; Resp 18; Temp 96.9; Pulse Ox 99% ; Pain 0/10; ap 15:00 BP 140 / 69; Pulse 83; Resp 18; Temp 96.6; Pulse Ox 97% ; Pain 0/10; ap 19:15 BP 148 / 90; Pulse 92; Resp 18; Temp 98.7; Pulse Ox 98% on R/A; mw2 23:26 BP 160 / 84; Pulse 72; Resp 17; Temp 98.0; Pulse Ox 98% on R/A; Pain 0/10; mw2 07/23 03:26 BP 143 / 88; Pulse 82; Resp 16; Temp 97.9; Pulse Ox 99% on R/A; Pain 0/10; mw2 07:26 BP 146 / 85; Pulse 88; Resp 16; Temp 97.4; Pulse Ox 98% ; Pain 0/10; ss 11:00 BP 145 / 78; Pulse 81; Resp 18; Pulse Ox 100% ; ms 14:04 BP 142 / 82; Pulse 82; Resp 18; Temp 98.2; Pulse Ox 100% ; Pain 0/10; ms 10/05 12:10 Body Mass Index 24.33 (72.57 kg, 172.72 cm) jl7 ED Course: 10/05 11:59 Patient arrived in ED. mr 11:59 None, None is Private Physician. mr 12:09 Triage completed. jl7 12:10 Arm band placed on right wrist. jl7 12:37 Tito Carvajal, HEAD OF [employer] is PHCP. pm1 12:37 Denis Ocasio MD is Attending Physician. pm1 12:44 Sebas Lua, ABDIFATAH is Primary Nurse. hj 12:49 EKG done, by mail carrier technician. reviewed by Tito Carvajal NP. 3 13:09 Urine collected: clean catch specimen, keya colored. dh3 13:15 Initial lab(s) drawn, by me, sent to lab. Inserted saline lock: 22 gauge in right hj forearm, using aseptic technique. Blood collected. 13:17 Patient has correct armband on for positive identification. Placed in gown. Bed in low hj position. Call light in reach. Side rails up X 1. 13:18 Safety Checks: Personal items have been removed. at the nurses station; shoes,pants, hj belt, t shirt The door is open or patient has been placed in a hallway bed/chair. There are no family/friend visitors at this time Sitter present at this time. 13:18 Safety checks: Items removed: yes. Door open/sign placed on door: yes. Family/friend tm3 present: no. Sitter present: Yes. 13:30 Safety Checks: Personal items have been removed. The door is open or patient has been hj placed in a hallway bed/chair. There are no family/friend visitors at this time Sitter present at this time. 13:35 Safety checks: Items removed: yes. Door open/sign placed on door: yes. Family/friend tm3 present: no. Sitter present: Yes. 13:45 Safety Checks: Personal items have been removed. The door is open or patient has been hj placed in a hallway bed/chair. There are no family/friend visitors at this time Sitter present at this time. 13:54 Safety checks: Items removed: yes. Door open/sign placed on door: yes. Family/friend tm3 present: yes. Sitter present: Yes. 14:00 Safety Checks: Personal items have been removed. The door is open or patient has been hj placed in a hallway bed/chair. There are no family/friend visitors at this time Sitter present at this time. 14:15 Safety Checks: Personal items have been removed. The door is open or patient has been hj placed in a hallway bed/chair. There are no family/friend visitors at this time Sitter present at this time. 14:17 Safety checks: Items removed: yes. Door open/sign placed on door: yes. Family/friend tm3 present: no. Sitter present: Yes. 14:23 Lab(s) recollected, by ear mold laboratory technician, sent to lab. tm3 14:30 Safety Checks: Personal items have been removed. The door is open or patient has been hj placed in a hallway bed/chair. There are no family/friend visitors at this time. 14:33 Safety checks: Items removed: yes. Door open/sign placed on door: yes. Family/friend tm3 present: no. Sitter present: Yes. Diet: Pt. at beside eating regular diet tray . 14:45 Safety Checks: Personal items have been removed. The door is open or patient has been hj placed in a hallway bed/chair. There are no family/friend visitors at this time Sitter present at this time. 14:45 Safety checks: Items removed: yes. Door open/sign placed on door: yes. Family/friend jb1 present: no. Sitter present: Yes. 15:00 Safety Checks: Personal items have been removed. The door is open or patient has been hj placed in a hallway bed/chair. There are no family/friend visitors at this time Sitter present at this time. 15:00 Safety checks: Items removed: yes. Door open/sign placed on door: yes. Family/friend jb1 present: no. Sitter present: Yes. 15:15 Safety Checks: Personal items have been removed. The door is open or patient has been hj placed in a hallway bed/chair. There are no family/friend visitors at this time Sitter present at this time. 15:22 Safety checks: Items removed: yes. Door open/sign placed on door: yes. Family/friend jb1 present: no. Sitter present: Yes. 15:30 Safety Checks: Personal items have been removed. The door is open or patient has been hj placed in a hallway bed/chair. There are no family/friend visitors at this time. 15:45 Safety Checks: Personal items have been removed. The door is open or patient has been hj placed in a hallway bed/chair. A family member and/or friend is present and encouraged to stay. There are no family/friend visitors at this time Sitter present at this time. 15:45 Safety checks: Items removed: yes. Door open/sign placed on door: yes. Family/friend jb1 present: no. Sitter present: Yes. 15:58 Safety checks: Items removed: yes. Door open/sign placed on door: yes. Family/friend jb1 present: yes. Sitter present: Yes. 16:00 Safety Checks: Personal items have been removed. The door is open or patient has been hj placed in a hallway bed/chair. A family member and/or friend is present and encouraged to stay. Sitter present at this time. 16:12 Safety checks: Items removed: yes. Door open/sign placed on door: yes. Family/friend jb1 present: yes. Sitter present: Yes. 16:15 Safety Checks: Personal items have been removed. The door is open or patient has been hj placed in a hallway bed/chair. A family member and/or friend is present and encouraged to stay. Sitter present at this time. 16:30 Safety Checks: Personal items have been removed. The door is open or patient has been hj placed in a hallway bed/chair. A family member and/or friend is present and encouraged to stay. Sitter present at this time. 16:33 Safety checks: Items removed: yes. Door open/sign placed on door: yes. Family/friend vs1 present: yes. Family/friends encouraged to stay with patient. Sitter present: Yes. 16:45 Safety Checks: Personal items have been removed. The door is open or patient has been hj placed in a hallway bed/chair. There are no family/friend visitors at this time Sitter present at this time. 16:48 Safety checks: Items removed: yes. Door open/sign placed on door: yes. Family/friend vs1 present: yes. Family/friends encouraged to stay with patient. Sitter present: Yes. 17:00 Safety Checks: Personal items have been removed. The door is open or patient has been hj placed in a hallway bed/chair. There are no family/friend visitors at this time. 17:03 Safety checks: Items removed: yes. Door open/sign placed on door: yes. Family/friend vs1 present: yes. Family/friends encouraged to stay with patient. Sitter present: Yes. 17:15 Safety Checks: Personal items have been removed. The door is open or patient has been hj placed in a hallway bed/chair. There are no family/friend visitors at this time. 17:18 Safety checks: Items removed: yes. Door open/sign placed on door: yes. Family/friend vs1 present: yes. Family/friends encouraged to stay with patient. Sitter present: Yes. 17:30 Safety Checks: Personal items have been removed. The door is open or patient has been hj placed in a hallway bed/chair. There are no family/friend visitors at this time. 17:36 Safety checks: Items removed: yes. Door open/sign placed on door: yes. Family/friend vs1 present: no. Sitter present: Yes. 17:45 Safety Checks: Personal items have been removed. The door is open or patient has been hj placed in a hallway bed/chair. There are no family/friend visitors at this time Sitter present at this time. 17:49 Inserted saline lock: 24 gauge in left forearm, using aseptic technique. hj 17:52 Safety checks: Items removed: yes. Door open/sign placed on door: yes. Family/friend vs1 present: no. Sitter present: Yes. 18:00 Safety Checks: Personal items have been removed. The door is open or patient has been hj placed in a hallway bed/chair. There are no family/friend visitors at this time Sitter present at this time. 18:06 Safety checks: Items removed: yes. Door open/sign placed on door: yes. Family/friend vs1 present: no. Sitter present: Yes. 18:15 Safety Checks: Personal items have been removed. The door is open or patient has been hj placed in a hallway bed/chair. There are no family/friend visitors at this time Sitter present at this time. 18:20 Safety checks: Items removed: yes. Door open/sign placed on door: yes. Family/friend vs1 present: Other: [place] Sitter present: Yes. 18:30 Safety Checks: Personal items have been removed. The door is open or patient has been hj placed in a hallway bed/chair. There are no family/friend visitors at this time Sitter present at this time. 18:36 Safety checks: Items removed: yes. Door open/sign placed on door: yes. Family/friend vs1 present: no. Sitter present: Yes. 18:45 Safety Checks: Personal items have been removed. The door is open or patient has been hj placed in a hallway bed/chair. There are no family/friend visitors at this time Sitter present at this time. 18:51 Safety checks: Items removed: yes. Door open/sign placed on door: yes. Family/friend vs1 present: no. Sitter present: Yes. 19:00 Safety Checks: Personal items have been removed. The door is open or patient has been ms1 placed in a hallway bed/chair. There are no family/friend visitors at this time Sitter present at this time. 19:15 Safety Checks: Personal items have been removed. The door is open or patient has been ms1 placed in a hallway bed/chair. There are no family/friend visitors at this time Sitter present at this time. 19:20 IV was discontinued by the patient. Band-Aid placed where pt pulled IV. jd3 19:30 Safety Checks: Personal items have been removed. The door is open or patient has been ms1 placed in a hallway bed/chair. There are no family/friend visitors at this time Sitter present at this time. 19:45 Safety Checks: Personal items have been removed. The door is open or patient has been ms1 placed in a hallway bed/chair. There are no family/friend visitors at this time Sitter present at this time. Safety Checks: Sitter present at this time. 20:02 Safety Checks: Personal items have been removed. The door is open or patient has been ms1 placed in a hallway bed/chair. There are no family/friend visitors at this time Sitter present at this time. 20:15 Safety Checks: Personal items have been removed. The door is open or patient has been ms1 placed in a hallway bed/chair. A family member and/or friend is present and encouraged to stay. Sitter present at this time. 20:30 Safety Checks: Personal items have been removed. The door is open or patient has been ms1 placed in a hallway bed/chair. A family member and/or friend is present and encouraged to stay. Sitter present at this time. 20:35 Primary Nurse role handed off by Sebas Lua, ABDIFATAH jd3 20:35 Josef May, ABDIFATAH is Primary Nurse. jd3 20:46 Safety Checks: Personal items have been removed. The door is open or patient has been ms1 placed in a hallway bed/chair. A family member and/or friend is present and encouraged to stay. Sitter present at this time. 21:01 Safety Checks: Personal items have been removed. The door is open or patient has been ms1 placed in a hallway bed/chair. A family member and/or friend is present and encouraged to stay. Sitter present at this time. 21:15 Safety Checks: Personal items have been removed. The door is open or patient has been ms1 placed in a hallway bed/chair. There are no family/friend visitors at this time Sitter present at this time. 21:30 Safety Checks: Personal items have been removed. The door is open or patient has been ms1 placed in a hallway bed/chair. There are no family/friend visitors at this time Sitter present at this time. 21:45 Safety Checks: Personal items have been removed. The door is open or patient has been ms1 placed in a hallway bed/chair. There are no family/friend visitors at this time Sitter present at this time. 22:00 Safety Checks: Personal items have been removed. The door is open or patient has been ms1 placed in a hallway bed/chair. There are no family/friend visitors at this time Sitter present at this time. 22:15 Safety Checks: Personal items have been removed. The door is open or patient has been ms1 placed in a hallway bed/chair. There are no family/friend visitors at this time Sitter present at this time. 22:30 Safety Checks: Personal items have been removed. The door is open or patient has been ms1 placed in a hallway bed/chair. There are no family/friend visitors at this time Sitter present at this time. 22:[address] via stretcher. ms1 22:57 CT Head Brain wo Cont In Process Unspecified. EDMS 22:[address] Patient moved back from [address]. ms1 23:00 Safety Checks: Personal items have been removed. The door is open or patient has been ms1 placed in a hallway bed/chair. There are no family/friend visitors at this time Sitter present at this time. 23:06 PHCP role handed off by Tito Carvajal NP cp 23:06 Sachin Hall PA is PHCP. cp 23:15 Safety Checks: Personal items have been removed. The door is open or patient has been ms1 placed in a hallway bed/chair. There are no family/friend visitors at this time Sitter present at this time. 23:30 Safety Checks: Personal items have been removed. The door is open or patient has been ms1 placed in a hallway bed/chair. There are no family/friend visitors at this time Sitter present at this time. 23:45 Safety Checks: Personal items have been removed. The door is open or patient has been ms1 placed in a hallway bed/chair. There are no family/friend visitors at this time Sitter present at this time. 23:56 Resting quietly. ms1 10/06 00:00 Safety Checks: Personal items have been removed. The door is open or patient has been ms1 placed in a hallway bed/chair. There are no family/friend visitors at this time Sitter present at this time. 00:15 Safety Checks: Personal items have been removed. The door is open or patient has been ms1 placed in a hallway bed/chair. There are no family/friend visitors at this time Sitter present at this time. 00:23 Inserted saline lock: 20 gauge in right forearm, using aseptic technique. placed by colby Mcintyre RN. 00:30 Safety Checks: Personal items have been removed. The door is open or patient has been ms1 placed in a hallway bed/chair. There are no family/friend visitors at this time Sitter present at this time. 00:45 Safety Checks: Personal items have been removed. The door is open or patient has been ms1 placed in a hallway bed/chair. There are no family/friend visitors at this time Sitter present at this time. 01:00 Safety Checks: Personal items have been removed. The door is open or patient has been ms1 placed in a hallway bed/chair. There are no family/friend visitors at this time Sitter present at this time. 01:15 Safety Checks: Personal items have been removed. The door is open or patient has been ms1 placed in a hallway bed/chair. There are no family/friend visitors at this time Sitter present at this time. 01:30 Safety Checks: Personal items have been removed. The door is open or patient has been ms1 placed in a hallway bed/chair. There are no family/friend visitors at this time Sitter present at this time. 01:45 Safety Checks: Personal items have been removed. The door is open or patient has been ms1 placed in a hallway bed/chair. There are no family/friend visitors at this time Sitter present at this time. 02:00 Safety Checks: Personal items have been removed. The door is open or patient has been ms1 placed in a hallway bed/chair. There are no family/friend visitors at this time Sitter present at this time. 02:15 Safety Checks: Personal items have been removed. The door is open or patient has been ms1 placed in a hallway bed/chair. There are no family/friend visitors at this time Sitter present at this time. 02:30 Safety Checks: Personal items have been removed. The door is open or patient has been ms1 placed in a hallway bed/chair. There are no family/friend visitors at this time Sitter present at this time. 02:45 Safety Checks: Personal items have been removed. The door is open or patient has been ms1 placed in a hallway bed/chair. There are no family/friend visitors at this time Sitter present at this time. 03:00 Safety Checks: Personal items have been removed. The door is open or patient has been ms1 placed in a hallway bed/chair. There are no family/friend visitors at this time Sitter present at this time. 03:15 Safety Checks: Personal items have been removed. The door is open or patient has been ms1 placed in a hallway bed/chair. There are no family/friend visitors at this time Sitter present at this time. 03:30 Safety Checks: Personal items have been removed. The door is open or patient has been ms1 placed in a hallway bed/chair. There are no family/friend visitors at this time Sitter present at this time. 03:45 Safety Checks: Personal items have been removed. The door is open or patient has been ms1 placed in a hallway bed/chair. There are no family/friend visitors at this time Sitter present at this time. 04:00 Safety Checks: Personal items have been removed. The door is open or patient has been ms1 placed in a hallway bed/chair. There are no family/friend visitors at this time Sitter present at this time. 04:15 Safety Checks: Personal items have been removed. The door is open or patient has been ms1 placed in a hallway bed/chair. There are no family/friend visitors at this time Sitter present at this time. 04:30 Safety Checks: Personal items have been removed. The door is open or patient has been ms1 placed in a hallway bed/chair. There are no family/friend visitors at this time Sitter present at this time. 04:45 Safety Checks: Personal items have been removed. The door is open or patient has been ms1 placed in a hallway bed/chair. There are no family/friend visitors at this time Sitter present at this time. 05:00 Safety Checks: Personal items have been removed. The door is open or patient has been ms1 placed in a hallway bed/chair. There are no family/friend visitors at this time Sitter present at this time. 05:15 Safety Checks: Personal items have been removed. The door is open or patient has been ms1 placed in a hallway bed/chair. There are no family/friend visitors at this time Sitter present at this time. 05:30 Safety Checks: Personal items have been removed. The door is open or patient has been ms1 placed in a hallway bed/chair. There are no family/friend visitors at this time Sitter present at this time. 05:45 Safety Checks: Personal items have been removed. The door is open or patient has been ms1 placed in a hallway bed/chair. There are no family/friend visitors at this time Sitter present at this time. 06:00 Safety Checks: Personal items have been removed. The door is open or patient has been ms1 placed in a hallway bed/chair. There are no family/friend visitors at this time Sitter present at this time. 06:15 Safety Checks: Personal items have been removed. The door is open or patient has been ms1 placed in a hallway bed/chair. There are no family/friend visitors at this time Sitter present at this time. 06:30 Safety Checks: Personal items have been removed. The door is open or patient has been ms1 placed in a hallway bed/chair. There are no family/friend visitors at this time Sitter present at this time. 06:45 Safety Checks: Personal items have been removed. The door is open or patient has been ms1 placed in a hallway bed/chair. There are no family/friend visitors at this time Sitter present at this time. 07:00 Safety Checks: Personal items have been removed. The door is open or patient has been ms1 placed in a hallway bed/chair. There are no family/friend visitors at this time Sitter present at this time. 07:00 Safety checks: Items removed: yes. Door open/sign placed on door: yes. Family/friend mh5 present: no. Sitter present: Yes. 07:02 Report given to Manuel FLETCHER. [id number] 07:08 Warm blanket given. Diet: Patient given a regular meal tray. mh5 07:15 Juan Crockett LVN is Primary Nurse. em 07:15 Safety checks: Items removed: yes. Door open/sign placed on door: yes. Family/friend mh5 present: no. Sitter present: Yes. 07:30 Safety checks: Items removed: Door open/sign placed on door: Sitter present: Yes. wj1 07:45 Safety checks: Items removed: Door open/sign placed on door: Sitter present: Yes. wj1 08:00 Safety checks: Items removed: Door open/sign placed on door: Sitter present: Yes. wj1 08:15 Safety checks: Items removed: Sitter present: Yes. wj1 08:30 Safety checks: Items removed: Sitter present: Yes. wj1 08:45 Safety checks: Items removed: Door open/sign placed on door: Sitter present: Yes. wj1 09:00 Safety checks: Items removed: Door open/sign placed on door: Sitter present: Yes. wj1 09:15 Safety checks: Items removed: Door open/sign placed on door: Sitter present: Yes. wj1 09:30 Safety checks: Items removed: Door open/sign placed on door: Sitter present: Yes. wj1 09:45 Safety checks: Items removed: Door open/sign placed on door: Sitter present: Yes. wj1 10:00 Safety checks: Items removed: Sitter present: Yes. wj1 10:15 Safety checks: Items removed: Door open/sign placed on door: Sitter present: Yes. wj1 10:30 Safety checks: Items removed: yes. Door open/sign placed on door: yes. Family/friend mh5 present: no. Sitter present: Yes. 10:45 Safety checks: Items removed: yes. Door open/sign placed on door: yes. Family/friend mh5 present: no. Sitter present: Yes. 11:00 Safety checks: Items removed: Door open/sign placed on door: Family/friend present: wj1 Sitter present: Yes. 11:15 Safety checks: Items removed: Door open/sign placed on door: Family/friend present: wj1 Sitter present: Yes. 11:30 Safety checks: Items removed: Door open/sign placed on door: Sitter present: Yes. wj1 11:45 Safety checks: Items removed: Door open/sign placed on door: Sitter present: Yes. wj1 12:00 Safety checks: Items removed: Door open/sign placed on door: Sitter present: Yes. wj1 12:15 Safety checks: Items removed: Door open/sign placed on door: Sitter present: Yes. wj1 12:30 Safety checks: Items removed: Door open/sign placed on door: Sitter present: Yes. wj1 12:45 Safety checks: Items removed: Door open/sign placed on door: Sitter present: Yes. wj1 13:00 Safety checks: Items removed: Door open/sign placed on door: Sitter present: Yes. wj1 13:15 Safety checks: Items removed: Door open/sign placed on door: Sitter present: Yes. wj1 13:29 Safety checks: Items removed: Door open/sign placed on door: Sitter present: Yes. wj1 13:45 Safety checks: Items removed: Door open/sign placed on door: Sitter present: Yes. wj1 14:00 Safety checks: Items removed: Door open/sign placed on door: Sitter present: Yes. wj1 14:15 Safety checks: Items removed: Door open/sign placed on door: Sitter present: Yes. wj1 14:30 Safety checks: Items removed: Door open/sign placed on door: Family/friend present: no. wj1 Sitter present: Yes. 14:45 Safety checks: Items removed: yes. Door open/sign placed on door: yes. Family/friend wj1 present: no. Sitter present: Yes. 15:00 Safety checks: Items removed: yes. Door open/sign placed on door: yes. Family/friend wj1 present: no. Sitter present: Yes. 15:15 Safety checks: Items removed: yes. Door open/sign placed on door: yes. Family/friend wj1 present: no. Sitter present: Yes. 15:30 Safety checks: Items removed: yes. Door open/sign placed on door: yes. Family/friend wj1 present: no. Sitter present: Yes. 15:45 Safety checks: Items removed: yes. Door open/sign placed on door: yes. Family/friend wj1 present: yes. Sitter present: Yes. 16:00 Safety checks: Items removed: yes. Door open/sign placed on door: yes. Family/friend wj1 present: yes. Sitter present: Yes. 16:15 Safety checks: Items removed: yes. Door open/sign placed on door: yes. Family/friend wj1 present: no. Sitter present: Yes. 16:30 Safety checks: Items removed: yes. Door open/sign placed on door: yes. Family/friend wj1 present: no. Sitter present: Yes. 16:45 Safety checks: Items removed: yes. Door open/sign placed on door: yes. Family/friend wj1 present: no. Sitter present: Yes. 17:00 Safety checks: Items removed: yes. Door open/sign placed on door: yes. Family/friend wj1 present: no. Sitter present: Yes. 17:15 Safety checks: Items removed: yes. Door open/sign placed on door: yes. Family/friend wj1 present: no. Sitter present: Yes. 17:30 Safety checks: Items removed: yes. Door open/sign placed on door: yes. Family/friend wj1 present: no. Sitter present: Yes. 17:45 Safety checks: Items removed: yes. Door open/sign placed on door: yes. Family/friend wj1 present: no. Sitter present: Yes. 18:00 Safety checks: Items removed: yes. Door open/sign placed on door: yes. Family/friend wj1 present: no. Sitter present: Yes. 18:15 Safety checks: Items removed: yes. Door open/sign placed on door: yes. Family/friend wj1 present: no. Sitter present: Yes. 18:30 Safety checks: Items removed: yes. Door open/sign placed on door: yes. Family/friend wj1 present: no. Sitter present: Yes. 18:45 Safety checks: Items removed: yes. Door open/sign placed on door: yes. Family/friend wj1 present: no. Sitter present: Yes. 19:00 Safety Checks: Personal items have been removed. The door is open or patient has been fu placed in a hallway bed/chair. There are no family/friend visitors at this time Sitter present at this time. 19:15 Safety Checks: Personal items have been removed. The door is open or patient has been fu placed in a hallway bed/chair. There are no family/friend visitors at this time Sitter present at this time. 19:30 Safety Checks: Personal items have been removed. The door is open or patient has been fu placed in a hallway bed/chair. A family member and/or friend is present and encouraged to stay. Sitter present at this time. 19:41 No apparent distress. family/visitor talking to patient. fu 19:45 Safety Checks: Personal items have been removed. The door is open or patient has been fu placed in a hallway bed/chair. A family member and/or friend is present and encouraged to stay. Sitter present at this time. 20:00 Safety Checks: Personal items have been removed. The door is open or patient has been fu placed in a hallway bed/chair. There are no family/friend visitors at this time Sitter present at this time. 20:20 Linen changed. Patient uses washrag to clean himself. Put on clean gown. fu 20:30 Safety Checks: Personal items have been removed. The door is open or patient has been fu placed in a hallway bed/chair. There are no family/friend visitors at this time Sitter present at this time. 20:45 Safety Checks: Personal items have been removed. The door is open or patient has been fu placed in a hallway bed/chair. There are no family/friend visitors at this time Sitter present at this time. 21:00 Safety Checks: Personal items have been removed. The door is open or patient has been fu placed in a hallway bed/chair. There are no family/friend visitors at this time Sitter present at this time. 21:08 voided in urinal with 400ml urine. fu 21:15 No apparent distress. Resting quietly. Safety Checks: Personal items have been removed. fu The door is open or patient has been placed in a hallway bed/chair. There are no family/friend visitors at this time Sitter present at this time. 21:30 No apparent distress. Resting quietly. Safety Checks: Personal items have been removed. fu The door is open or patient has been placed in a hallway bed/chair. There are no family/friend visitors at this time Sitter present at this time. 21:45 Safety Checks: Personal items have been removed. The door is open or patient has been fu placed in a hallway bed/chair. There are no family/friend visitors at this time Sitter present at this time. 22:00 Safety Checks: Personal items have been removed. The door is open or patient has been fu placed in a hallway bed/chair. There are no family/friend visitors at this time Sitter present at this time. 22:03 Diet: given with ice chips and water.. fu 22:15 Safety Checks: Personal items have been removed. The door is open or patient has been fu placed in a hallway bed/chair. There are no family/friend visitors at this time Sitter present at this time. 22:30 Safety Checks: Personal items have been removed. The door is open or patient has been fu placed in a hallway bed/chair. There are no family/friend visitors at this time Sitter present at this time. 22:38 voided in urinal, 300ml urine discarded. fu 22:45 Safety Checks: Personal items have been removed. The door is open or patient has been fu placed in a hallway bed/chair. There are no family/friend visitors at this time Sitter present at this time. 22:45 Bed in low position. Side rails up X2. fu 23:00 No apparent distress. Resting quietly. awake. Safety Checks: Personal items have been fu removed. The door is open or patient has been placed in a hallway bed/chair. There are no family/friend visitors at this time Sitter present at this time. 23:15 No apparent distress. Resting quietly. awake. Safety Checks: Personal items have been fu removed. The door is open or patient has been placed in a hallway bed/chair. There are no family/friend visitors at this time Sitter present at this time. Other: voided in urinal 100ml urine discarded. 23:30 No apparent distress. Resting quietly. awake, watching TV. Safety Checks: Personal fu items have been removed. The door is open or patient has been placed in a hallway bed/chair. There are no family/friend visitors at this time Sitter present at this time. 23:45 No apparent distress. Resting quietly. awake, stated "I'm fine". Safety Checks: fu Personal items have been removed. The door is open or patient has been placed in a hallway bed/chair. There are no family/friend visitors at this time Sitter present at this time. 10/07 00:00 No apparent distress. awake, watching TV. Safety Checks: Personal items have been fu removed. The door is open or patient has been placed in a hallway bed/chair. There are no family/friend visitors at this time Sitter present at this time. 00:15 Safety Checks: Personal items have been removed. The door is open or patient has been fu placed in a hallway bed/chair. There are no family/friend visitors at this time Sitter present at this time. 00:30 Safety Checks: Personal items have been removed. The door is open or patient has been fu placed in a hallway bed/chair. There are no family/friend visitors at this time Sitter present at this time. 00:45 Safety Checks: Personal items have been removed. The door is open or patient has been fu placed in a hallway bed/chair. There are no family/friend visitors at this time Sitter present at this time. 00:54 Lights dimmed. Pillow given. Head of bed lowered. fu 01:00 Resting quietly. eyes closed. Safety Checks: Personal items have been removed. The door fu is open or patient has been placed in a hallway bed/chair. There are no family/friend visitors at this time Sitter present at this time. 01:15 Resting quietly. Safety Checks: Personal items have been removed. The door is open or fu patient has been placed in a hallway bed/chair. There are no family/friend visitors at this time Sitter present at this time. 01:30 Resting quietly. Safety Checks: Personal items have been removed. The door is open or fu patient has been placed in a hallway bed/chair. There are no family/friend visitors at this time Sitter present at this time. 01:45 Awake, resting quietly. Safety Checks: Personal items have been removed. The door is fu open or patient has been placed in a hallway bed/chair. There are no family/friend visitors at this time Sitter present at this time. 02:00 No apparent distress. Resting quietly. Safety Checks: Personal items have been removed. fu The door is open or patient has been placed in a hallway bed/chair. There are no family/friend visitors at this time Sitter present at this time. 02:15 Resting quietly. Safety Checks: Personal items have been removed. The door is open or fu patient has been placed in a hallway bed/chair. There are no family/friend visitors at this time Sitter present at this time. 02:30 No apparent distress. Resting quietly. Safety Checks: Personal items have been removed. fu The door is open or patient has been placed in a hallway bed/chair. There are no family/friend visitors at this time Sitter present at this time. 02:46 Resting quietly. Safety Checks: Personal items have been removed. The door is open or fu patient has been placed in a hallway bed/chair. There are no family/friend visitors at this time Sitter present at this time. 03:00 No apparent distress. Appears to be sleeping. Safety Checks: Personal items have been fu removed. The door is open or patient has been placed in a hallway bed/chair. There are no family/friend visitors at this time Sitter present at this time. 03:15 No apparent distress. Appears to be sleeping. Safety Checks: Personal items have been fu removed. The door is open or patient has been placed in a hallway bed/chair. There are no family/friend visitors at this time Sitter present at this time. 03:30 Resting quietly. Appears to be sleeping. Safety Checks: Personal items have been fu removed. The door is open or patient has been placed in a hallway bed/chair. There are no family/friend visitors at this time Sitter present at this time. 03:45 Appears to be sleeping. Safety Checks: Personal items have been removed. The door is fu open or patient has been placed in a hallway bed/chair. There are no family/friend visitors at this time Sitter present at this time. 04:00 Appears to be sleeping. Safety Checks: Personal items have been removed. The door is fu open or patient has been placed in a hallway bed/chair. There are no family/friend visitors at this time Sitter present at this time. 04:15 Appears to be sleeping. Safety Checks: Personal items have been removed. The door is fu open or patient has been placed in a hallway bed/chair. There are no family/friend visitors at this time Sitter present at this time. 04:30 Appears to be sleeping. Safety Checks: Personal items have been removed. The door is fu open or patient has been placed in a hallway bed/chair. There are no family/friend visitors at this time Sitter present at this time. 04:45 Resting quietly. awake. Safety Checks: Personal items have been removed. The door is fu open or patient has been placed in a hallway bed/chair. There are no family/friend visitors at this time Sitter present at this time. 05:00 Safety Checks: Personal items have been removed. The door is open or patient has been fu placed in a hallway bed/chair. There are no family/friend visitors at this time Sitter present at this time. 05:15 Resting quietly. Safety Checks: Personal items have been removed. The door is open or fu patient has been placed in a hallway bed/chair. There are no family/friend visitors at this time Sitter present at this time. 05:30 Safety Checks: Personal items have been removed. The door is open or patient has been fu placed in a hallway bed/chair. There are no family/friend visitors at this time Sitter present at this time. 05:45 Resting quietly. Safety Checks: Personal items have been removed. The door is open or fu patient has been placed in a hallway bed/chair. There are no family/friend visitors at this time Sitter present at this time. 06:00 Resting quietly. Safety Checks: Personal items have been removed. The door is open or fu patient has been placed in a hallway bed/chair. There are no family/friend visitors at this time Sitter present at this time. 06:15 Safety Checks: Personal items have been removed. The door is open or patient has been fu placed in a hallway bed/chair. There are no family/friend visitors at this time Sitter present at this time. 06:30 No apparent distress. Resting quietly. Safety Checks: Personal items have been removed. fu The door is open or patient has been placed in a hallway bed/chair. There are no family/friend visitors at this time Sitter present at this time. 06:31 warm blanket provided.. fu 06:45 Safety Checks: Personal items have been removed. The door is open or patient has been fu placed in a hallway bed/chair. There are no family/friend visitors at this time Sitter present at this time. 06:59 No apparent distress. Resting quietly. Safety Checks: Personal items have been removed. fu The door is open or patient has been placed in a hallway bed/chair. There are no family/friend visitors at this time Sitter present at this time. 07:00 Safety checks: Items removed: yes. Door open/sign placed on door: yes. Family/friend ap present: no. Sitter present: Yes. 07:15 Safety checks: Items removed: yes. Door open/sign placed on door: Patient placed in ap hallway bed. yes. Family/friend present: no. Sitter present: Yes. 07:30 Safety checks: Items removed: yes. Door open/sign placed on door: Patient placed in ap hallway bed. yes. Family/friend present: yes. no. Sitter present: Yes. 07:45 Safety checks: Items removed: yes. Door open/sign placed on door: yes. Family/friend ap present: no. Sitter present: Yes. 08:00 Safety checks: Items removed: yes. Door open/sign placed on door: yes. Family/friend ap present: yes. no. Sitter present: Yes. 08:15 Safety checks: Items removed: yes. Door open/sign placed on door: yes. Family/friend ap present: no. Sitter present: Yes. 08:30 Safety checks: Items removed: yes. Door open/sign placed on door: yes. Family/friend ap present: no. Sitter present: Yes. 08:45 Safety checks: Items removed: yes. Door open/sign placed on door: yes. Family/friend mh5 present: no. Sitter present: Yes. 09:00 Safety checks: Items removed: yes. Door open/sign placed on door: yes. Family/friend mh5 present: no. Sitter present: Yes. 09:15 Safety checks: Items removed: yes. Door open/sign placed on door: yes. Family/friend mh5 present: no. Sitter present: Yes. 09:30 Safety checks: Items removed: yes. Door open/sign placed on door: yes. Family/friend ap present: yes. no. Sitter present: Yes. 09:45 Safety checks: Items removed: yes. Door open/sign placed on door: yes. Family/friend ap present: no. Sitter present: Yes. 10:00 Safety checks: Items removed: yes. Door open/sign placed on door: yes. Family/friend ap present: no. Sitter present: Yes. 10:15 Safety checks: Items removed: yes. Door open/sign placed on door: yes. Family/friend ap present: yes. no. Sitter present: Yes. 10:30 Safety checks: Items removed: yes. Door open/sign placed on door: yes. Family/friend ap present: no. Sitter present: Yes. 10:45 Safety checks: Items removed: yes. Door open/sign placed on door: yes. Family/friend ap present: yes. Sitter present: Yes. 11:00 Safety checks: Items removed: yes. Door open/sign placed on door: yes. Family/friend ap present: yes. Sitter present: Yes. 11:15 Safety checks: Items removed: yes. Door open/sign placed on door: yes. Family/friend ap present: yes. Sitter present: Yes. No. 11:30 Safety checks: Items removed: yes. Door open/sign placed on door: yes. Family/friend ap present: no. Sitter present: Yes. 11:45 Safety checks: Items removed: yes. Door open/sign placed on door: yes. Family/friend ap present: no. Sitter present: Yes. 12:00 Safety checks: Items removed: yes. Door open/sign placed on door: yes. Family/friend ap present: no. Sitter present: Yes. 12:15 Safety checks: Items removed: yes. Door open/sign placed on door: yes. Family/friend ap present: no. Sitter present: Yes. 12:30 Safety checks: Items removed: yes. Door open/sign placed on door: yes. Family/friend ap present: no. Sitter present: Yes. 12:45 Safety checks: Items removed: yes. Door open/sign placed on door: yes. Family/friend ap present: Sitter present: Yes. 13:00 Safety checks: Items removed: yes. Door open/sign placed on door: yes. Family/friend ap present: no. Sitter present: Yes. 13:15 Safety checks: Items removed: yes. Door open/sign placed on door: yes. Family/friend ap present: no. Sitter present: Yes. 13:30 Safety checks: Items removed: yes. Door open/sign placed on door: yes. Family/friend ap present: no. Sitter present: Yes. 13:45 Safety checks: Items removed: yes. Door open/sign placed on door: yes. Family/friend mh5 present: yes. Sitter present: Yes. 14:00 Safety checks: Items removed: yes. Door open/sign placed on door: yes. Family/friend mh5 present: no. Sitter present: Yes. 14:15 Safety checks: Items removed: yes. Door open/sign placed on door: yes. Family/friend mh5 present: no. Sitter present: Yes. 14:30 Safety checks: Items removed: yes. Door open/sign placed on door: yes. Family/friend ap present: no. Sitter present: Yes. 14:45 Safety checks: Items removed: yes. Door open/sign placed on door: yes. Family/friend ap present: no. Sitter present: Yes. 15:00 Safety checks: Items removed: yes. Door open/sign placed on door: yes. Family/friend ap present: no. Sitter present: Yes. 15:15 Safety checks: Items removed: yes. Door open/sign placed on door: yes. Family/friend ap present: no. Sitter present: Yes. 15:30 Safety checks: Items removed: yes. Door open/sign placed on door: yes. Family/friend ap present: no. Sitter present: Yes. 15:45 Safety checks: Items removed: yes. Door open/sign placed on door: yes. Family/friend ap present: yes. Sitter present: Yes. 16:00 Safety checks: Items removed: yes. Door open/sign placed on door: yes. Family/friend ap present: yes. Sitter present: Yes. 16:15 Safety checks: Items removed: yes. Door open/sign placed on door: yes. Family/friend ap present: yes. Sitter present: Yes. 16:30 Safety checks: Items removed: yes. Door open/sign placed on door: yes. Family/friend ap present: yes. Sitter present: Yes. 16:45 Safety checks: Items removed: yes. Door open/sign placed on door: yes. Family/friend ap present: yes. Sitter present: Yes. 17:00 Safety checks: Items removed: yes. Door open/sign placed on door: yes. Family/friend ap present: no. Sitter present: Yes. 17:15 Safety checks: Items removed: yes. Door open/sign placed on door: yes. Family/friend ap present: no. Sitter present: Yes. 17:30 Safety checks: Items removed: yes. Door open/sign placed on door: yes. Family/friend ap present: no. Sitter present: Yes. 17:[address] [facility], still no beds, pt is still on waiting list, no discharges today, maybe bd tomorrow. [facility]aced [facility] still no discharges, maybe tomorrow. contacted lis[facility] sil[facility], chart is being reviewed. 17:[address] [facility], no beds at this time, will consider when a bed bd becomes available. 17:45 Safety checks: Items removed: yes. Door open/sign placed on door: yes. Family/friend ap present: no. Sitter present: Yes. 18:00 Safety checks: Items removed: yes. Door open/sign placed on door: yes. Family/friend mh5 present: no. Sitter present: Yes. 18:15 Safety checks: Items removed: yes. Door open/sign placed on door: yes. Family/friend mh5 present: no. Sitter present: Yes. 18:30 Safety checks: Items removed: yes. Door open/sign placed on door: yes. Family/friend mh5 present: no. Sitter present: Yes. 18:45 Safety checks: Items removed: yes. Door open/sign placed on door: yes. Family/friend ap present: no. Sitter present: Yes. 18:45 Safety checks: Items removed:. ap 19:00 Safety checks: Items removed: yes. Door open/sign placed on door: yes. Family/friend mw2 present: yes. Family/friends encouraged to stay with patient. no. Sitter present: Yes. 19:15 Safety checks: Items removed: yes. Door open/sign placed on door: yes. Family/friend mw2 present: yes. Family/friends encouraged to stay with patient. Sitter present: Yes. 19:30 Safety checks: Items removed: yes. Door open/sign placed on door: yes. Family/friend mw2 present: no. Sitter present: Yes. 19:45 Safety checks: Items removed: yes. Door open/sign placed on door: yes. Family/friend mw2 present: no. Sitter present: Yes. 20:00 Safety checks: Items removed: yes. Door open/sign placed on door: yes. Family/friend mw2 present: no. Sitter present: Yes. 20:15 Safety checks: Items removed: yes. Door open/sign placed on door: yes. Family/friend mw2 present: yes. Family/friends encouraged to stay with patient. Sitter present: Yes. 20:30 Safety checks: Items removed: yes. Door open/sign placed on door: yes. Family/friend mw2 present: yes. Sitter present: Yes. 20:45 Safety checks: Items removed: yes. Door open/sign placed on door: yes. Family/friend mw2 present: yes. Sitter present: Yes. 21:00 Safety checks: Items removed: yes. Door open/sign placed on door: yes. Family/friend mw2 present: no. Sitter present: Yes. 21:15 Safety checks: Items removed: yes. Door open/sign placed on door: yes. Family/friend mw2 present: no. Sitter present: Yes. 21:30 Safety checks: Items removed: yes. Door open/sign placed on door: yes. Family/friend mw2 present: no. Sitter present: Yes. 21:45 Safety checks: Items removed: yes. Door open/sign placed on door: yes. Family/friend mw2 present: no. Sitter present: Yes. 22:00 Safety checks: Items removed: yes. Door open/sign placed on door: yes. Family/friend mw2 present: no. Sitter present: Yes. 22:15 Safety checks: Items removed: yes. Door open/sign placed on door: yes. Family/friend mw2 present: no. Sitter present: Yes. 22:30 Safety checks: Items removed: yes. Door open/sign placed on door: yes. Family/friend mw2 present: no. Sitter present: Yes. 22:45 Safety checks: Items removed: yes. Door open/sign placed on door: yes. Family/friend mw2 present: no. Sitter present: Yes. 23:00 Safety checks: Items removed: yes. Door open/sign placed on door: yes. Family/friend mw2 present: no. Sitter present: Yes. 23:15 Safety checks: Items removed: yes. Door open/sign placed on door: yes. Family/friend mw2 present: no. Sitter present: Yes. 23:30 Safety checks: Items removed: yes. Door open/sign placed on door: yes. Family/friend mw2 present: no. Sitter present: Yes. 23:45 Safety checks: Items removed: yes. Door open/sign placed on door: yes. Family/friend mw2 present: no. Sitter present: Yes. 10/08 00:00 Safety checks: Items removed: yes. Door open/sign placed on door: yes. Family/friend mw2 present: no. Sitter present: Yes. 00:15 Safety checks: Items removed: yes. Door open/sign placed on door: yes. Family/friend mw2 present: no. Sitter present: Yes. 00:30 Safety checks: Items removed: yes. Door open/sign placed on door: yes. Family/friend mw2 present: no. Sitter present: Yes. 00:45 Safety checks: Items removed: yes. Door open/sign placed on door: yes. Family/friend mw2 present: no. Sitter present: Yes. 01:00 Safety checks: Items removed: yes. Door open/sign placed on door: yes. Family/friend mw2 present: no. Sitter present: Yes. 01:15 Safety checks: Items removed: yes. Door open/sign placed on door: yes. Family/friend mw2 present: no. Sitter present: Yes. 01:30 Safety checks: Items removed: yes. Door open/sign placed on door: yes. Family/friend mw2 present: no. Sitter present: Yes. 01:45 Safety checks: Items removed: yes. Door open/sign placed on door: yes. Family/friend mw2 present: no. Sitter present: Yes. 02:00 Safety checks: Items removed: yes. Door open/sign placed on door: yes. Family/friend mw2 present: no. Sitter present: Yes. 02:15 Safety checks: Items removed: yes. Door open/sign placed on door: yes. Family/friend mw2 present: no. Sitter present: Yes. 02:30 Safety checks: Items removed: yes. Door open/sign placed on door: yes. Family/friend mw2 present: no. Sitter present: Yes. 02:45 Safety checks: Items removed: yes. Door open/sign placed on door: yes. Family/friend mw2 present: no. Sitter present: Yes. 03:00 Safety checks: Items removed: yes. Door open/sign placed on door: yes. Family/friend mw2 present: no. Sitter present: Yes. 03:15 Safety checks: Items removed: yes. Door open/sign placed on door: yes. Family/friend mw2 present: no. Sitter present: Yes. 03:30 Safety checks: Items removed: yes. Door open/sign placed on door: yes. Family/friend mw2 present: no. Sitter present: Yes. 03:45 Safety checks: Items removed: yes. Door open/sign placed on door: yes. Family/friend mw2 present: no. Sitter present: Yes. 04:00 Safety checks: Items removed: yes. Door open/sign placed on door: yes. Family/friend mw2 present: no. Sitter present: Yes. 04:15 Safety checks: Items removed: yes. Door open/sign placed on door: yes. Family/friend mw2 present: no. Sitter present: Yes. 04:30 Safety checks: Items removed: yes. Door open/sign placed on door: yes. Family/friend mw2 present: no. Sitter present: Yes. 04:45 Safety checks: Items removed: yes. Door open/sign placed on door: yes. Family/friend mw2 present: no. Sitter present: Yes. 05:00 Safety checks: Items removed: yes. Door open/sign placed on door: yes. Family/friend mw2 present: no. Sitter present: Yes. 05:15 Safety checks: Items removed: yes. Door open/sign placed on door: yes. Family/friend mw2 present: no. Sitter present: Yes. 05:30 Safety checks: Items removed: yes. Door open/sign placed on door: yes. Family/friend mw2 present: no. Sitter present: Yes. 05:45 Safety checks: Items removed: yes. Door open/sign placed on door: yes. Family/friend mw2 present: no. Sitter present: Yes. 06:00 Safety checks: Items removed: yes. Door open/sign placed on door: yes. Family/friend mw2 present: no. Sitter present: Yes. 06:15 Safety checks: Items removed: yes. Door open/sign placed on door: yes. Family/friend mw2 present: no. Sitter present: Yes. 06:30 Safety checks: Items removed: yes. Door open/sign placed on door: yes. Family/friend mw2 present: no. Sitter present: Yes. 06:45 Safety checks: Items removed: yes. Door open/sign placed on door: yes. Family/friend mw2 present: no. Sitter present: Yes. 07:00 Safety Checks: Personal items have been removed. The door is open or patient has been hj placed in a hallway bed/chair. There are no family/friend visitors at this time Sitter present at this time. 07:00 Safety checks: Items removed: yes. Door open/sign placed on door: yes. Family/friend mw2 present: no. Sitter present: Yes. 07:15 Safety Checks: Personal items have been removed. The door is open or patient has been hj placed in a hallway bed/chair. There are no family/friend visitors at this time Sitter present at this time. 07:15 Safety checks: Items removed: yes. Door open/sign placed on door: yes. Family/friend present: no. Sitter present: Yes. 07:30 Safety Checks: Personal items have been removed. The door is open or patient has been hj placed in a hallway bed/chair. There are no family/friend visitors at this time Sitter present at this time. 07:30 Safety checks: Items removed: yes. Door open/sign placed on door: yes. Family/friend present: no. Sitter present: Yes. 07:45 Safety Checks: Personal items have been removed. The door is open or patient has been hj placed in a hallway bed/chair. There are no family/friend visitors at this time Sitter present at this time. 07:45 Safety checks: Items removed: yes. Door open/sign placed on door: yes. Family/friend present: no. Sitter present: Yes. 08:00 Safety Checks: Personal items have been removed. The door is open or patient has been hj placed in a hallway bed/chair. There are no family/friend visitors at this time Sitter present at this time. 08:00 Safety checks: Items removed: yes. Door open/sign placed on door: yes. Family/friend present: no. Sitter present: Yes. 08:15 Safety Checks: Personal items have been removed. The door is open or patient has been hj placed in a hallway bed/chair. There are no family/friend visitors at this time Sitter present at this time. 08:15 Safety checks: Items removed: yes. Door open/sign placed on door: yes. Family/friend present: no. Sitter present: Yes. 08:30 Safety Checks: Personal items have been removed. The door is open or patient has been hj placed in a hallway bed/chair. There are no family/friend visitors at this time Sitter present at this time. 08:30 Safety checks: Items removed: yes. Door open/sign placed on door: yes. Family/friend present: no. Sitter present: Yes. 08:32 Diet: Patient given a regular meal tray. 08:45 Safety Checks: Personal items have been removed. The door is open or patient has been hj placed in a hallway bed/chair. There are no family/friend visitors at this time Sitter present at this time. 08:45 Safety checks: Items removed: yes. Door open/sign placed on door: yes. Family/friend present: no. Sitter present: Yes. 08:47 Diet: Tolerated well. 09:00 Safety Checks: Personal items have been removed. The door is open or patient has been hj placed in a hallway bed/chair. There are no family/friend visitors at this time Sitter present at this time. 09:00 Safety checks: Items removed: yes. Door open/sign placed on door: yes. Family/friend present: no. Sitter present: Yes. 09:15 Safety Checks: Personal items have been removed. The door is open or patient has been hj placed in a hallway bed/chair. There are no family/friend visitors at this time Sitter present at this time. 09:15 Safety checks: Items removed: yes. Door open/sign placed on door: yes. Family/friend present: no. Sitter present: Yes. 09:30 Safety Checks: Personal items have been removed. The door is open or patient has been hj placed in a hallway bed/chair. There are no family/friend visitors at this time Sitter present at this time. 09:30 Safety checks: Items removed: yes. Door open/sign placed on door: yes. Family/friend present: no. Sitter present: Yes. 09:45 Safety Checks: Personal items have been removed. The door is open or patient has been hj placed in a hallway bed/chair. There are no family/friend visitors at this time Sitter present at this time. 09:45 Safety checks: Items removed: yes. Door open/sign placed on door: yes. Family/friend present: no. Sitter present: Yes. 10:00 Safety Checks: Personal items have been removed. The door is open or patient has been hj placed in a hallway bed/chair. There are no family/friend visitors at this time Sitter present at this time. 10:00 Safety checks: Items removed: yes. Door open/sign placed on door: yes. Family/friend present: no. Sitter present: Yes. 10:15 Safety Checks: Personal items have been removed. The door is open or patient has been hj placed in a hallway bed/chair. There are no family/friend visitors at this time Sitter present at this time. 10:15 Safety checks: Items removed: yes. Door open/sign placed on door: yes. Family/friend md present: no. Sitter present: Yes. 10:30 Safety Checks: Personal items have been removed. The door is open or patient has been hj placed in a hallway bed/chair. A family member and/or friend is present and encouraged to stay. Sitter present at this time. 10:30 Safety checks: Items removed: yes. Door open/sign placed on door: yes. Family/friend md present: yes. Sitter present: Yes. 10:45 Safety Checks: Personal items have been removed. The door is open or patient has been hj placed in a hallway bed/chair. A family member and/or friend is present and encouraged to stay. Sitter present at this time. 10:45 Safety checks: Items removed: yes. Door open/sign placed on door: yes. Family/friend md present: yes. Sitter present: Yes. 10:45 Safety checks: Items removed: Door open/sign placed on door: yes. Family/friend ms present: yes. Sitter present: Yes. 11:00 Safety Checks: Personal items have been removed. The door is open or patient has been hj placed in a hallway bed/chair. A family member and/or friend is present and encouraged to stay. Sitter present at this time. 11:00 Safety checks: Items removed: yes. Door open/sign placed on door: yes. Family/friend ms present: no. Sitter present: Yes. 11:07 All of the patient clinicals and updated information was faxed to all psych facilities. 11:15 Safety Checks: Personal items have been removed. The door is open or patient has been hj placed in a hallway bed/chair. There are no family/friend visitors at this time. 11:15 Safety checks: Items removed: yes. Door open/sign placed on door: yes. Family/friend ms present: no. Sitter present: Yes. 11:30 Safety Checks: Personal items have been removed. The door is open or patient has been hj placed in a hallway bed/chair. There are no family/friend visitors at this time Sitter present at this time. 11:30 Safety checks: Items removed: yes. Door open/sign placed on door: yes. Family/friend ms present: no. Sitter present: Yes. 11:45 Safety Checks: Personal items have been removed. The door is open or patient has been hj placed in a hallway bed/chair. There are no family/friend visitors at this time Sitter present at this time. 11:45 Safety checks: Items removed: yes. Door open/sign placed on door: yes. Family/friend ms present: no. Sitter present: No. 12:00 Safety checks: Items removed: yes. Door open/sign placed on door: yes. Family/friend ms present: no. Sitter present: Yes. 12:15 Safety checks: Items removed: yes. Door open/sign placed on door: yes. Family/friend ms present: no. Sitter present: Yes. 12:30 Safety checks: Items removed: yes. Door open/sign placed on door: yes. Family/friend ms present: yes. Sitter present: Yes. 12:45 Safety checks: Items removed: yes. Door open/sign placed on door: yes. Family/friend ms present: no. Sitter present: Yes. 13:00 Safety checks: Items removed: yes. Door open/sign placed on door: yes. Family/friend mh5 present: no. Sitter present: Yes. 13:15 Safety checks: Items removed: yes. Door open/sign placed on door: yes. Family/friend ms present: no. Sitter present: Yes. 13:30 Safety checks: Items removed: yes. Door open/sign placed on door: yes. Family/friend ms present: no. Sitter present: Yes. 13:45 Safety checks: Items removed: yes. Door open/sign placed on door: yes. Family/friend ms present: no. Sitter present: Yes. 14:00 Safety checks: Items removed: yes. Door open/sign placed on door: yes. Family/friend ms present: no. Sitter present: Yes. 14:01 Attending Physician role handed off by Denis Ocasio MD [facility] 14:01 Sachin Rodas MD is Attending Physician. [facility] 14:15 Safety checks: Items removed: yes. Door open/sign placed on door: yes. Family/friend ms present: no. Sitter present: Yes. 14:15 IV discontinued, intact, bleeding controlled, No redness/swelling at site. Pressure ms dressing applied. 14:30 Safety checks: Items removed: yes. Door open/sign placed on door: yes. Family/friend ms present: no. Sitter present: Yes. 14:45 Safety checks: Items removed: yes. Door open/sign placed on door: yes. Family/friend ms present: no. Sitter present: Yes. 15:00 Safety checks: Items removed: yes. Door open/sign placed on door: yes. Family/friend ms present: no. Sitter present: Yes. 15:15 Safety checks: Items removed: yes. Door open/sign placed on door: yes. Family/friend ms present: no. Sitter present: Yes. 15:15 No provider procedures requiring assistance completed. 15:30 Safety checks: Items removed: yes. Door open/sign placed on door: yes. Family/friend ms present: yes. Family/friends encouraged to stay with patient. Sitter present: Yes. 15:45 Safety checks: Items removed: yes. Door open/sign placed on door: yes. Family/friend ms present: yes. Family/friends encouraged to stay with patient. Sitter present: Yes. 16:00 Safety checks: Items removed: yes. Door open/sign placed on door: yes. Family/friend ms present: yes. Family/friends encouraged to stay with patient. Sitter present: Yes. 16:13 Pt sister took pt belongings with her home. ms 16:15 Safety checks: Items removed: yes. Door open/sign placed on door: yes. Family/friend ms present: yes. Sitter present: Yes. 16:18 Patient did not have IV access during this emergency room visit. Administered Medications: 10/05 14:27 Not Given (Patient Refused): NS 0.9% 1000 ml IV at 1000 ml once 17:50 Drug: NS 0.9% 1000 ml Route: IV; Rate: 1 bolus; Site: left forearm; 10/06 00:25 Follow up: Response: No adverse reaction; IV Status: Completed infusion [facility] 10/05 17:55 Drug: D5-LR 1000 ml Route: IV; Rate: calculated rate; Site: left forearm; 10/06 00:25 Follow up: Response: No adverse reaction; IV Status: Completed infusion [facility] 10/05 23:52 CANCELLED (Physician Discretion): NS 0.9% 1000 ml IV at 1 bolus Per protocol; 1000 mL cp bolus 10/06 00:25 Drug: NS 0.9% 1000 ml Route: IV; Rate: 1 bolus; Site: right forearm; jd3 00:25 Drug: NS 0.9% 1000 ml Route: IV; Rate: 1 bolus; Site: right forearm; jd3 10/07 15:25 Drug: Ativan 2 mg Route: PO; em 17:55 Follow up: Response: No adverse reaction; Anxiety decreased em 22:41 Drug: Ativan 2 mg Route: PO; bs1 10/08 06:54 Follow up: Response: No adverse reaction bs1 Intake: 10/07 06:46 PO: 700ml (Water); Total: 700ml. fu Output: 06:46 Urine: 950ml (Voided); Total: 950ml. fu Outcome: 10/08 14:06 ER care complete, transfer ordered by . [facility] 15:15 Transferred by ground EMS Note: [facility]; 15:15 Condition: stable 15:15 Instructed on the need for transfer, Demonstrated understanding of instructions. 16:19 Patient left the ED. hj Signatures: Dispatcher [employer] EDMS Elmer Sharma jb1 Zofia Wilson, Anastacio tm3 Sachin Rodas MD MD cha Rivera, Maria mr Bon, Juan, TITLE CLOSER TITLE CLOSER em June Collins RN RN iw Solis, Maria ms Smirch, Shelby, RN RN ss Gallardo, Ana ag Joaquin, Henry, RN RN hj Page, Corey, PA PA cp Isidro, Aspen ap Tito Carvajal, HEAD OF PRECISION TARGETING HEAD OF PRECISION TARGETING pm1 Clarissa Hoffman 5 Leeroy Martinez RN ABDIFATAH jl7 Elaina Gay 3 Josef May RN RN jd3 Umadhay, Felix RN Mode Peck RN Pauline Becker, RN RN bs1 Anthony Barrera mw2 Julisa Cheng3 Kalie Whitley wClarissa Mccoy md, Valerie 1 Adria Vela ms1 Corrections: (The following items were deleted from the chart) 10/05 14:24 14:08 Lab(s) recollected, by [facility], 3 tm3 14:27 14:09 NS 0.9% 1000 ml IV at 1000 ml in right forearm hj hj 19:49 19:30 Safety Checks: Personal items have been removed. The door is open or patient has ms1 been placed in a hallway bed/chair. There are no family/friend visitors at this time ms1 20:02 19:49 BP 144 / 82 Supine Auto L Arm; Pulse 104bpm; Resp 18bpm; Pulse Ox 100% RA; Temp ms1 98.4F Oral; ms1 10/06 02:58 01:00 Reassessment: Patient appears in no apparent distress at this time. Patient jd3 and/or family updated on plan of care and expected duration. Pain level reassessed. Patient is alert, oriented x 3, equal unlabored respirations, skin warm/dry/pink. jd3 19:44 19:39 Safety Checks: A family member and/or friend is present and encouraged to stay. fufu 20:11 19:45 Safety Checks: Personal items have been removed. The door is open or patient has fu been placed in a hallway bed/chair. Sitter present at this time. fu 21:58 21:50 Reassessment: Patient appears in no apparent distress at this time. Patient is fu alert, oriented x 3, equal unlabored respirations, skin warm/dry/pink. Patient denies pain at this time. fu : 22:24 Primary Nurse role handed off by Juan Crockett LVN fu fu : 22:24 Mehdi Reynolds, RN is Primary Nurse. fu fu 22:39 20:50 General: Appears in no apparent distress. comfortable, fu fu 22:39 20:50 Pain: Denies pain. fu fu 22:39 20:50 Neuro: Level of Consciousness is awake, alert, obeys commands, Oriented to fu person, place, unable to remember today's date and day, patient oriented to date, day and time.. fu 22:39 20:50 Respiratory: Airway is patent Respiratory effort is even, unlabored, Respiratory fu pattern is regular, symmetrical, Denies shortness of breath fu 22:39 20:50 Musculoskeletal: No deficits noted. No signs and/or symptoms reported regarding fu the musculoskeletal system. Range of motion: intact in all extremities, fu 22:53 19:45 Safety Checks: Personal items have been removed. The door is open or patient has fu been placed in a hallway bed/chair. There are no family/friend visitors at this time Sitter present at this time. fu : 22:59 No apparent distress. Resting quietly. awake. fu fu 23: 22:59 Safety Checks: Personal items have been removed. The door is open or patient has fu been placed in a hallway bed/chair. There are no family/friend visitors at this time Sitter present at this time. fu :24 19:22 GI: No signs and/or symptoms were reported involving the gastrointestinal system. fu stated last BM couple of days ago. fu :10/05 13:15 Derm: No signs and/or symptoms reported regarding the dermatologic system. fu 10/06 23:53 21:50 Reassessment: Patient appears in no apparent distress at this time. Patient is fu alert, oriented x 3, equal unlabored respirations, skin warm/dry/pink. Patient denies pain at this time. patient reports auditory and visual hallucinations,but not too clear.. fu :53 23:29 Neuro: Reports auditory hallucinations,no suicidal ideation.. fu 10/07 00:34 00:32 Resting quietly. awake, watching TV. fu fu 00:34 00:32 Safety Checks: Personal items have been removed. The door is open or patient has fu been placed in a hallway bed/chair. There are no family/friend visitors at this time Sitter present at this time. fu 00:35 00:30 Resting quietly. awake, watching TV fu fu 00:49 10/06 19:22 Neuro: Level of Consciousness is awake, alert, obeys commands, Oriented to fu person, place, situation, 10/07 00:53 10/06 19:22 Derm: Skin is intact, Skin is pink, warm \\T\\ dry. fu 10/07 00:57 00:50 Cardiovascular: fu fu 01:33 01:30 BP 132 / 71; Pulse 81bpm; Resp 18bpm; Pulse Ox 99% RA; Temp 98.7F; Pain 0/10; fu fu 01:47 01:45 awake, resting quietly. fu fu 02:17 00:54 Lights dimmed. Pillow given. fu fu 03:02 03:00 Respiratory: Airway is patent Respiratory effort is even, unlabored, Respiratory fu pattern is regular, symmetrical, Denies shortness of breath fu 06:47 05:58 PO 700, (Water), Intake Total 700; Urine 800, (Voided), Output Total 800. fu fu 14:15 13:44 Safety checks: Items removed: yes. Door open/sign placed on door: yes. mh5 Family/friend present: yes. Sitter present: Yes. [facility] 18:36 18:00 Reassessment: Patient appears in no apparent distress at this time. Patient em and/or family updated on plan of care and expected duration. Pain level reassessed. Patient is alert, oriented x 3, equal unlabored respirations, skin warm/dry/pink. em 19:18 18:56 Safety checks: Items removed: yes. Door open/sign placed on door: yes. mw2 Family/friend present: no. Sitter present: Yes. ap 07 07:16 07:12 Safety checks: Items removed: yes. Door open/sign placed on door: yes. md Family/friend present: no. Sitter present: Yes. 10:46 10:31 Safety checks: Items removed: yes. Door open/sign placed on door: yes. md Family/friend present: yes. Sitter present: Yes. 11:46 11:30 Safety checks: Items removed: yes. Door open/sign placed on door: yes. ms Family/friend present: no. Sitter present: No. ms 14:27 07:26 BP 146 / 85; Pulse 88bpm; Resp 16bpm; Pulse Ox 88%; Temp 97.4F; Pain 0/10; md ss
== END 2017-10-08 16:19 ==
LOC: ER 11:55
DX: F20.9 Schizophrenia, unspecified (principal); F55.8 Abuse of other non-psychoactive substances; F43.10 Post-traumatic stress disorder, unspecified; X58.XXXA Exposure to other specified factors, initial encounter; Y93.9 Activity, unspecified; Y92.9 Unspecified place or not applicable; Y99.9 Unspecified external cause status
CPT/HCPCS: 36415; 70450; 80048; 80076; 80307; 80320; 80329; 81003; 82550; 84443; 85025; 85610; 85730; 93005; 96360; 96361; 99285; J7030

== ENCOUNTER 2017-11-22 12:18 | Emergency (ER) | payer SELFPAY ==
[2017-11-22] MEDS ORDERED: NA CHLORIDE 0.9% 1,000 ML with FOLIC ACID 1 MG, THIAMINE HCL 100 MG, MULTIVITAMINS INJ ... IV SCH ×4 (13:00)
[2017-11-22 13:06] LABS: Absolute Lymphocytes (CBC) 1.9 K/uL (0.7-4.9); Absolute Monocytes 0.4 K/uL (0.1-1.3); Absolute Neutrophil 5.9 K/uL (1.8-8.0); Basophils % 0.2 % (0-1.3); Eosinophils % 0.1 % (0-4.4); Hematocrit 45.5 % (39.6-49.0); MCH 32.6 pg (27.0-35.0); MPV 7.6 fL (7.6-11.3); Monocytes % 5.2 % (3.3-12.3); RBC Red Blood Cell Count 4.89 M/uL (4.33-5.43)
[2017-11-22 13:26] LABS: ALT/SGPT 36 U/L (12-78); AST/SGOT 48 U/L (15-37); Albumin 4.2 g/dL (3.4-5.0); Alkaline Phosphatase 56 U/L (45-117); BUN Blood Urea Nitrogen 5 mg/dL (7-18); Bicarbonate 28 mmol/L (21-32); Bilirubin Direct 0.1 mg/dL (0-0.2); Bilirubin Total 0.6 mg/dL (0.2-1.0); Glucose Level 113 mg/dL (74-106); Potassium 3.5 mmol/L (3.5-5.1); Protein, Total 7.8 g/dL (6.4-8.2); Sodium Level 142 mmol/L (136-145)
[2017-11-22] MEDS ORDERED: LORazepam 2 MG/ML VIAL ONE (14:17)
[2017-11-22] MEDS ORDERED: HALOPERIDOL LACT 5 MG/ML INJ ONE (17:30)
[2017-11-22] MEDS ORDERED: hydrOXYzine HCl 50 MG/ML VIAL IM ONE ×2 (18:00)
[2017-11-22 18:33] LABS: Urine Blood TRACE (NEG); Urine Glucose NEGATIVE (NEG); Urine Protein NEGATIVE (NEG); Urine Specific Gravity 1.015 (1.005-1.030)
[2017-11-22 18:37] LABS: Barbiturates NEGATIVE (NEGATIVE); Benzodiazepines NEGATIVE (NEGATIVE); Cocaine NEGATIVE (NEGATIVE); METHAMPHETAM NEGATIVE (NEGATIVE); Methadone NEGATIVE (NEGATIVE); Opiates NEGATIVE (NEGATIVE); Phencyclidine NEGATIVE (NEGATIVE); THC Cannibis NEGATIVE (NEGATIVE)
--- NOTE | 2017-11-23 01:06 | EDPHYS ---
Physician Documentation [facility] Name: Devon Hwang Age: 32 yrs Sex: Male : 1985 Arrival Date: 11/22/2017 Time: 12:24 Bed 17 Private MD: ED Physician Josue Talbot HPI: 11/22 12:40 This 32 yrs old Male presents to ER via Ambulatory with complaints of cp Suicidal Ideation. 12:40 The patient presents to the emergency department with homicidal ideation. Past cp psychiatric history: Prior diagnosis: schizophrenia, PTSD. 12:40 Associated signs and symptoms: Pertinent positives; hallucinations, substance abuse, jr8 suicide ideation, Pertinent negatives: abdominal pain, chest pain, headache. 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 11/23 01:06 Severity of symptoms: At their worst the symptoms were moderate in the emergency jr8 department the symptoms are unchanged. It is unknown whether or not the patient has had similar symptoms in the past. The patient has not recently seen a physician. Historical: - Allergies: 11/22 12:26 No Known Allergies; hj - Home Meds: 12:26 Unable to obtain [Active]; hj - PMHx: 12:26 PTSD; Schizophrenia; hj - PSHx: 12:26 Unable to obtain; hj - Immunization history:: Adult Immunizations unknown. - Social history:: Smoking status: Patient uses tobacco products, Patient uses alcohol. - Ebola Screening: : Patient negative for fever greater than or equal to 101.5 degrees Fahrenheit, and additional compatible Ebola Virus Disease symptoms Patient denies exposure to infectious person Patient denies travel to an Ebola-affected area in the 21 days before illness onset. ROS: 12:45 Constitutional: Negative for body aches, chills, fever, poor PO intake. cp 12:45 Eyes: Negative for injury, pain, redness, and discharge. cp 12:45 ENT: Negative for drainage from ear(s), ear pain, sore throat, difficulty swallowing, difficulty handling secretions. 12:45 Cardiovascular: Negative for chest pain, palpitations. 12:45 Respiratory: Negative for cough, shortness of breath, wheezing. 12:45 Abdomen/GI: Negative for abdominal pain, nausea, vomiting, and diarrhea, black/tarry stool, rectal bleeding. 12:45 Back: Negative for pain at rest, pain with movement, radiated pain. 12:45 Skin: Negative for cellulitis, rash. 12:45 Neuro: Negative for altered mental status, headache, seizure activity. 12:45 Psych: Positive for alcohol dependence, auditory hallucinations, homicidal ideation. 12:45 All other systems are negative. Exam: 12:52 Constitutional: The patient appears in no acute distress, alert, awake, non-toxic, well cp developed, well nourished. 12:52 Head/Face: Normocephalic, atraumatic. cp 13:02 ECG was reviewed by the Attending Physician. cp 09 01:06 Eyes: Pupils equal round and reactive to light, extra-ocular motions intact. Lids and jr8 lashes normal. Conjunctiva and sclera are non-icteric and not injected. Cornea within normal limits. Periorbital areas with no swelling, redness, or edema. ENT: Nares patent. No nasal discharge, no septal abnormalities noted. Tympanic membranes are normal and external auditory canals are clear. Oropharynx with no redness, swelling, or masses, exudates, or evidence of obstruction, uvula midline. Mucous membranes moist. Neck: Trachea midline, no thyromegaly or masses palpated, and no cervical lymphadenopathy. Supple, full range of motion without nuchal rigidity, or vertebral point tenderness. No Meningismus. Cardiovascular: Regular rate and rhythm with a normal S1 and S2. No gallops, murmurs, or rubs. Normal PMI, no JVD. No pulse deficits. Respiratory: Lungs have equal breath sounds bilaterally, clear to auscultation and percussion. No rales, rhonchi or wheezes noted. No increased work of breathing, no retractions or nasal flaring. Abdomen/GI: Soft, non-tender, with normal bowel sounds. No distension or tympany. No guarding or rebound. No evidence of tenderness throughout. Back: No spinal tenderness. No costovertebral tenderness. Full range of motion. Skin: Warm, dry with normal turgor. Normal color with no rashes, no lesions, and no evidence of cellulitis. MS/ Extremity: Pulses equal, no cyanosis. Neurovascular intact. Full, normal range of motion. Neuro: Awake and alert, GCS 15, oriented to person, place, time, and situation. Cranial nerves II-XII grossly intact. Motor strength 5/5 in all extremities. Sensory grossly intact. Cerebellar exam normal. Normal gait. Vital Signs: 11/22 12:32 BP 151 / 100; Pulse 115; Resp 18; Temp 98.1(TE); Pulse Ox 100% on R/A; Weight 70.31 kg; hj Height 5 ft. 8 in. (172.72 cm); Pain 0/10; 16:58 BP 124 / 84; Pulse 102; Resp 18; Pulse Ox 97% on R/A; hj 18:19 BP 142 / 93; Pulse 95; Resp 18; Pulse Ox 99% on R/A; hj 21:24 BP 138 / 98; Pulse 110; Resp 16; Pulse Ox 97% ; kk5 11/23 01:07 BP 149 / 87; Pulse 81; Resp 18; Pulse Ox 100% ; ms 11/22 12:32 Body Mass Index 23.57 (70.31 kg, 172.72 cm) hj MDM: 11/22 12:28 Patient medically screened. cp 13:00 Differential diagnosis: drug withdrawal. acute psychotic break, depression, psychosis cp secondary to non-compliance, alcohol intoxication. 22:36 Data reviewed: vital signs, nurses notes, lab test result(s), EKG. cp 23:33 Transition of care: After a detail discussion of the patient's case, care is cp transferred to Simon SMITH. 11/23 01:03 Data interpreted: Pulse oximetry: on room air is 97 %. Interpretation: normal. jr8 Counseling: I had a detailed discussion with the patient and/or guardian regarding: the historical points, exam findings, and any diagnostic results supporting the discharge/admit diagnosis, lab results, the need to transfer to another facility, [facility] does not immediately have the required specialist. ED course: Consulted with [facility]. Accepted patient . 11/22 12:35 Order name: Acetaminophen; Complete Time: 14: cp 11/22 12:35 Order name: Basic Metabolic Panel; Complete Time: 14: cp 11/22 12:35 Order name: CBC with Diff; Complete Time: 14: cp 11/22 12:35 Order name: ETOH Level; Complete Time: 14:08 cp 11/22 14:09 Interpretation: Abnormal: ETOH 349. cp 11/22 12:35 Order name: Hepatic Function; Complete Time: 14:08 cp 11/22 12:35 Order name: PT-INR; Complete Time: 14:08 cp 11/22 12:35 Order name: Ptt, Activated; Complete Time: 14:08 cp 11/22 12:35 Order name: Salicylate; Complete Time: 14:08 cp 11/22 12:35 Order name: Urine Drug Screen; Complete Time: 20:58 cp 11/22 20:58 Interpretation: Reviewed. 11/22 18:25 Order name: Urine Dipstick--Ancillary (enter results); Complete Time: 20:58 bd 11/22 20:58 Interpretation: Normal except: UBLD TRACE. 11/22 20:58 Order name: ETOH Level; Complete Time: 22:36 cp 11/22 12:35 Order name: EKG; Complete Time: 12:36 cp 11/22 12:35 Order name: EKG - Nurse/Tech; Complete Time: 13:50 cp 11/22 12:35 Order name: IV Saline Lock; Complete Time: 12:37 cp 11/22 12:35 Order name: Labs collected and sent; Complete Time: 13:04 cp 11/22 12:35 Order name: Urine Dipstick-Ancillary (obtain specimen); Complete Time: 18:27 cp 11/22 13:21 Order name: Diet Regular; Complete Time: 13:22 mh5 EC/06 13:02 Rate is 122 beats/min. Rhythm is regular. NV interval is normal. QRS interval is cp normal. QT interval is normal. Interpreted by me. Reviewed by me. Administered Medications: 13:38 Drug: Banana Bag - (NS 0.9% 1000 ml, foLIC Acid 1 mg, Thiamine 100 mg, Multivitamin 1 hj amp) Route: IV; Rate: 200 calculated rate; Site: right antecubital; 19:00 Follow up: Response: No adverse reaction; IV Status: Completed infusion; infusion jd3 completed upon marketing proposal coordinator taking over care for pt at 1900 14:08 Drug: Ativan 0.5 mg Route: IVP; Site: right hand; hj 14:14 Follow up: Response: No adverse reaction; Anxiety decreased hj 17:35 Not Given (not available per pharmacy): Benadryl 25 mg IM once hj 17:51 Drug: HALdol (as decanoate) 10 mg Route: IM; Site: left deltoid; hj 17:52 Follow up: Response: No adverse reaction hj 17:51 Drug: Ativan 1 mg Route: IM; Site: left deltoid; hj 18:26 Follow up: Response: No adverse reaction; Anxiety decreased hj 17:51 Drug: hydrOXYzine 25 mg Route: PO; hj 17:52 Follow up: Response: No adverse reaction hj Disposition: 11/23 07:31 Co-signature as Attending Physician, Josue Talbot MD I agree with the assessment and kdr plan of care. Disposition: 11/23/17 01:05 Transfer ordered to [facility]. Diagnosis are Suicidal ideations, Auditory hallucinations. - Reason for transfer: Higher level of care. - Accepting physician is Dr. John . - Condition is Stable. - Problem is new. - Symptoms are unchanged. Signatures: Dispatcher [employer] EDMS Josue Talbot MD MD [facility] Simon Merino PA PA jr8 Sebas Lua RN RN Sachin Hall PA PA cp Davies, Jonathon, RN RN jd3 Corrections: (The following items were deleted from the chart) 01:06 11/22 12:40 Associated signs and symptoms: Pertinent positives; hallucinations, jr8 homicidal ideation, substance abuse, Pertinent negatives: abdominal pain, chest pain, headache, cp 11/23 01:48 01:05 11/23/2017 01:05 Transfer ordered to [facility]. Diagnosis is jd3 Suicidal ideations; Auditory hallucinations. Reason for transfer: Higher level of care. Accepting physician is Dr. John . Condition is Stable. Problem is new. Symptoms are unchanged. jr8
--- NOTE | 2017-11-23 01:06 | ER ---
Nurse's Notes [facility] Name: Devon Hwang Age: 32 yrs Sex: Male : 1985 Arrival Date: 11/22/2017 Time: 12:24 Bed 17 Private MD: Diagnosis: Suicidal ideations;Auditory hallucinations Presentation: 11/22 12:24 Presenting complaint: Patient states: pt told her 2 sisters today, "I want to kill zacarias myself thru a sonoscope operator", pt was A\\T\\O x 3; a [facility] pt;. Transition of care: patient was not received from another setting of care. Onset of symptoms was November 22, 2017. Risk Assessment: Do you want to hurt yourself or someone else? Patient reports desire/thoughts of hurting themselves or someone else. Provider notified. Initial Sepsis Screen: Does the patient meet any 2 criteria? No. Patient's initial sepsis screen is negative. Does the patient have a suspected source of infection? No. Patient's initial sepsis screen is negative. Care prior to arrival: None. 12:24 Method Of Arrival: Ambulatory 12:24 Acuity: MORENA 2 hj Triage Assessment: 12:26 General: Appears in no apparent distress. uncomfortable, Behavior is calm, cooperative, hj appropriate for age. Pain: Denies pain. Historical: - Allergies: 12:26 No Known Allergies; hj - Home Meds: 12:26 Unable to obtain [Active]; hj - PMHx: 12:26 PTSD; Schizophrenia; hj - PSHx: 12:26 Unable to obtain; hj - Immunization history:: Adult Immunizations unknown. - Social history:: Smoking status: Patient uses tobacco products, Patient uses alcohol. - Ebola Screening: : Patient negative for fever greater than or equal to 101.5 degrees Fahrenheit, and additional compatible Ebola Virus Disease symptoms Patient denies exposure to infectious person Patient denies travel to an Ebola-affected area in the 21 days before illness onset. Screenin:27 Abuse screen: Denies threats or abuse. Denies injuries from another. Nutritional hj screening: No deficits noted. Tuberculosis screening: No symptoms or risk factors identified. Fall Risk None identified. Assessment: 12:26 General: Appears in no apparent distress. uncomfortable, Behavior is calm, cooperative, hj appropriate for age. Pain: Denies pain. Neuro: Level of Consciousness is awake, alert, obeys commands, Oriented to person, place, time, situation, Appropriate for age. Cardiovascular: Capillary refill < 3 seconds Patient's skin is warm and dry. Respiratory: Airway is patent Respiratory effort is even, unlabored, Respiratory pattern is regular, symmetrical. GI: No signs and/or symptoms were reported involving the gastrointestinal system. : No signs and/or symptoms were reported regarding the genitourinary system. EENT: No signs and/or symptoms were reported regarding the EENT system. Derm: No signs and/or symptoms reported regarding the dermatologic system. Musculoskeletal: No signs and/or symptoms reported regarding the musculoskeletal system. 13:30 Reassessment: Patient and/or family updated on plan of care and expected duration. Pain hj level reassessed. Patient is alert, oriented x 3, equal unlabored respirations, skin warm/dry/pink. states" Man, im paranoid, i hate needles and hospitals". 14:21 Reassessment: Patient and/or family updated on plan of care and expected duration. Pain hj level reassessed. Patient is alert, oriented x 3, equal unlabored respirations, skin warm/dry/pink. asks, "do you think, im safe here?", nurse replied, "yes, you are safe here, and your food tray is here";. 15:13 Reassessment: Patient and/or family updated on plan of care and expected duration. Pain hj level reassessed. Patient is alert, oriented x 3, equal unlabored respirations, skin warm/dry/pink. states,"what did you gave me earlier to calm me down? nurse replied: ativan 0.5 mg IV to help you calm down, pt states"i dont want any IV meds and this IV";. 15:16 Reassessment: [facility] in room;. hj 16:17 Reassessment: Patient and/or family updated on plan of care and expected duration. Pain hj level reassessed. Patient is alert, oriented x 3, equal unlabored respirations, skin warm/dry/pink. requested pt to given urine sample;. 16:57 Reassessment: states, "i want to go home, and wanted back to my medication and i dont hj want to be transferred and that i was just drunk"; MD aware;. 17:38 Reassessment: pt states, "i am really hearing voices now, and i feel like my anxiety is hj building up, i need meds, because nobody can stop me if i hit the boiling point" provider aware with orders to be given IM;. 17:50 Reassessment: verified drug interactions with pharmacist Zaire; per pharmacist, okay hj to give all at one syringe;. 18:19 Reassessment: able to provider urine sample;. hj 19:00 Reassessment: Patient appears in no apparent distress at this time. Patient and/or jd3 family updated on plan of care and expected duration. Pain level reassessed. Patient is alert, oriented x 3, equal unlabored respirations, skin warm/dry/pink. resting in bed with eyes closed, even and unlabored respirations, no distress noted at this time. sitter at bedside. 20:00 Reassessment: Patient appears in no apparent distress at this time. No changes from jd3 previously documented assessment. Patient and/or family updated on plan of care and expected duration. Pain level reassessed. Patient is alert, oriented x 3, equal unlabored respirations, skin warm/dry/pink. 21:00 Reassessment: Patient appears in no apparent distress at this time. No changes from jd3 previously documented assessment. Patient and/or family updated on plan of care and expected duration. Pain level reassessed. Patient is alert, oriented x 3, equal unlabored respirations, skin warm/dry/pink. 21:19 Reassessment: Patient appears in no apparent distress at this time. Patient and/or jd3 family updated on plan of care and expected duration. Pain level reassessed. Patient is alert, oriented x 3, equal unlabored respirations, skin warm/dry/pink. repeat ETOH drawn. pt resting in bed, eyes closed, even and unlabored respirations, no distress noted at this time. sitter at bedside. 22:00 Reassessment: Patient appears in no apparent distress at this time. Patient and/or jd3 family updated on plan of care and expected duration. Pain level reassessed. Patient is alert, oriented x 3, equal unlabored respirations, skin warm/dry/pink. pt resting in bed with eyes closed, even and unlabored respirations, no distress noted at this time. sitter at bedside. 23:00 Reassessment: Patient appears in no apparent distress at this time. No changes from jd3 previously documented assessment. Patient and/or family updated on plan of care and expected duration. Pain level reassessed. Patient is alert, oriented x 3, equal unlabored respirations, skin warm/dry/pink. 23:31 Reassessment: provider at bedside discussing plan of care with pt. jd3 11/23 00:00 Reassessment: Patient appears in no apparent distress at this time. Patient and/or jd3 family updated on plan of care and expected duration. Pain level reassessed. Patient is alert, oriented x 3, equal unlabored respirations, skin warm/dry/pink. 01:00 Reassessment: Patient appears in no apparent distress at this time. Patient and/or jd3 family updated on plan of care and expected duration. Pain level reassessed. Patient is alert, oriented x 3, equal unlabored respirations, skin warm/dry/pink. 01:25 Reassessment: report given to Amish GARDINER at [facility]. j 01:47 Reassessment: Patient appears in no apparent distress at this time. Patient and/or jd3 family updated on plan of care and expected duration. Pain level reassessed. Patient is alert, oriented x 3, equal unlabored respirations, skin warm/dry/pink. report given to EMS. Psych: 11/22 12:31 Subjective: Patient's mood is elevated, Delusions are denied, Hallucinations are denied hj Having thoughts of suicide. Plan for suicide is with proj engineer. Objective: Patient is cooperative, Speech is normal, Affect is appropriate. Interventions: Removed personal items and placed in bag. Patient placed in hospital gown. Searched person for dangerous items. Suicide Risk Assessment: Sad Person Scale: Sex of patient: Male: Score 1 point. Age of patient: Score 1 point if patient 15-34. Depression: Score 1 point if signs of depression are present. Previous Attempt: Score 1 point if patient has previously attempted suicide. Substance Abuse: Rational Thinking: Score 0 point if patient has rational thinking. Social Support: Score 0 if social support is present/available. Organized Plan: Score 1 point if patient had a plan in place. Relationship:. Safety Checks: Personal items have been removed. Door is open. No visitors are present at this time. Commitment: Patient will be a voluntary commitment. 17:02 Pt denies substance abuse Patient uses benzodiazepines Patient uses cocaine, Patient hj uses hallucinogens Patient uses heroin. 19:07 Safety Checks: Personal items have been removed. Door is open. No visitors are present kk5 at this time. 19:18 Safety Checks: Personal items have been removed. Door is open. No visitors are present kk5 at this time. Vital Signs: 12:32 BP 151 / 100; Pulse 115; Resp 18; Temp 98.1(TE); Pulse Ox 100% on R/A; Weight 70.31 kg; hj Height 5 ft. 8 in. (172.72 cm); Pain 0/10; 16:58 BP 124 / 84; Pulse 102; Resp 18; Pulse Ox 97% on R/A; hj 18:19 BP 142 / 93; Pulse 95; Resp 18; Pulse Ox 99% on R/A; hj 21:24 BP 138 / 98; Pulse 110; Resp 16; Pulse Ox 97% ; kk5 11/23 01:07 BP 149 / 87; Pulse 81; Resp 18; Pulse Ox 100% ; ms 11/22 12:32 Body Mass Index 23.57 (70.31 kg, 172.72 cm) ED Course: 11/22 12:24 Patient arrived in ED. hj 12:24 Sebas Lua RN is Primary Nurse. hj 12:25 Sachin aHll PA is PHCP. cp 12:25 Josue Talbot MD is Attending Physician. cp 12:26 Triage completed. hj 12:30 Arm band placed on right wrist. hj 12:30 Safety checks: Items removed: yes. Door open/sign placed on door: yes. Family/friend mh5 present: no. Sitter present: Yes. 12:32 Patient has correct armband on for positive identification. Placed in gown. Bed in low hj position. Call light in reach. Side rails up X 1. 12:45 Safety checks: Items removed: yes. Door open/sign placed on door: yes. Family/friend mh5 present: no. Sitter present: Yes. 13:00 Safety checks: Items removed: yes. Door open/sign placed on door: yes. Family/friend mh5 present: no. Sitter present: Yes. 13:02 Initial lab(s) drawn, by me, sent to lab. Inserted saline lock: 22 gauge in right mh5 forearm, using aseptic technique. Blood collected. Patient did not have IV access during this emergency room visit. Pressure dressing applied. 13:03 Acetaminophen Sent. 5 13:03 Basic Metabolic Panel Sent. 5 13:03 CBC with Diff Sent. 5 13:03 ETOH Level Sent. 5 13:04 Hepatic Function Sent. 5 13:04 PT-INR Sent. 5 13:04 Ptt, Activated Sent. 5 13:04 Salicylate Sent. [facility] 13:15 Safety checks: Items removed: yes. Door open/sign placed on door: yes. Family/friend mh5 present: no. Sitter present: Yes. 13:17 EKG done, by bench technician. reviewed by Sachin SMITH. dt2 13:20 Inserted saline lock: 22 gauge in right antecubital area, using aseptic technique. [facility] 13:30 Safety checks: Items removed: yes. Door open/sign placed on door: yes. Family/friend mh5 present: no. Sitter present: Yes. 13:30 Inserted saline lock: 22 gauge in right hand, using aseptic technique. 13:54 Safety checks: Items removed: yes. Door open/sign placed on door: yes. Family/friend eb present: no. Sitter present: Yes. 14:00 Safety Checks: Personal items have been removed. The door is open or patient has been mg3 placed in a hallway bed/chair. There are no family/friend visitors at this time Sitter present at this time. Other: Pt resting in bed; No further needs at this time. Eating lunch. 14:15 Safety Checks: Personal items have been removed. The door is open or patient has been mg3 placed in a hallway bed/chair. There are no family/friend visitors at this time Sitter present at this time. Pt sitting up in bed;. Pt has no further requests at this time. 14:30 Safety Checks: Personal items have been removed. The door is open or patient has been mg3 placed in a hallway bed/chair. There are no family/friend visitors at this time Sitter present at this time. Safety Checks: Other: Pt making jokes and asking for beer. Explained to him there is no alcohol in the hospital and he stated "Come on. Not even one." Explained to him again and he stated, "I'm only joking". Pt sitting up on edge of bed. 14:45 Safety Checks: Personal items have been removed. The door is open or patient has been mg3 placed in a hallway bed/chair. There are no family/friend visitors at this time Sitter present at this time. Safety Checks: Other: Pt requesting another blanket. Pound given to Pt. No further requests at this time. 15:00 No apparent distress. Resting quietly. Safety Checks: Personal items have been removed. mg3 The door is open or patient has been placed in a hallway bed/chair. There are no family/friend visitors at this time Sitter present at this time. 15:15 Resting quietly. [facility]. Safety Checks: Personal items have been removed. The door mg3 is open or patient has been placed in a hallway bed/chair. A family member and/or friend is present and encouraged to stay. Sitter present at this time. Other: [facility] staff talking with Patient. 15:15 Safety checks: Items removed: yes. Safety checks: Door open/sign placed on door: yes. mh5 Family/friend present: no. Sitter present: Yes. 15:30 Safety Checks: Personal items have been removed. The door is open or patient has been mg3 placed in a hallway bed/chair. Sitter present at this time. Other: [facility] currently visiting with Patient and conversing in his room. Safety Checks:. 15:30 Safety checks: Items removed: yes. Door open/sign placed on door: yes. Family/friend mh5 present: no. Sitter present: Yes. 15:45 No apparent distress. Resting quietly. Safety Checks: Personal items have been removed. mg3 The door is open or patient has been placed in a hallway bed/chair. There are no family/friend visitors at this time Sitter present at this time. 16:00 Resting quietly. transfer approval from receiving facility. Safety Checks: Personal mg3 items have been removed. The door is open or patient has been placed in a hallway bed/chair. There are no family/friend visitors at this time Sitter present at this time. 16:15 Resting quietly. Safety Checks: Personal items have been removed. The door is open or mg3 patient has been placed in a hallway bed/chair. There are no family/friend visitors at this time Sitter present at this time. 16:30 Safety Checks: Personal items have been removed. The door is open or patient has been hj placed in a hallway bed/chair. There are no family/friend visitors at this time Sitter present at this time. 16:45 Safety Checks: Personal items have been removed. The door is open or patient has been hj placed in a hallway bed/chair. There are no family/friend visitors at this time Sitter present at this time. 17:00 Safety Checks: Personal items have been removed. The door is open or patient has been hj placed in a hallway bed/chair. There are no family/friend visitors at this time. 17:00 Safety checks: Items removed: yes. Door open/sign placed on door: yes. Family/friend mh5 present: no. Sitter present: Yes. 17:00 Diet: Patient given a regular meal tray. mh5 17:15 Safety Checks: Personal items have been removed. The door is open or patient has been hj placed in a hallway bed/chair. There are no family/friend visitors at this time Sitter present at this time. 17:15 Safety checks: Items removed: yes. Door open/sign placed on door: yes. Family/friend mh5 present: no. Sitter present: Yes. 17:30 Safety Checks: Personal items have been removed. The door is open or patient has been hj placed in a hallway bed/chair. There are no family/friend visitors at this time Sitter present at this time. 17:30 Safety checks: Items removed: yes. Door open/sign placed on door: yes. Family/friend mh5 present: no. Sitter present: Yes. 17:45 Safety Checks: Personal items have been removed. The door is open or patient has been hj placed in a hallway bed/chair. There are no family/friend visitors at this time Sitter present at this time. 17:45 Safety checks: Items removed: yes. Door open/sign placed on door: yes. Family/friend mh5 present: no. Sitter present: Yes. 18:00 Safety Checks: Personal items have been removed. The door is open or patient has been hj placed in a hallway bed/chair. There are no family/friend visitors at this time Sitter present at this time. 18:00 Safety checks: Items removed: yes. Door open/sign placed on door: yes. Family/friend mh5 present: no. Sitter present: Yes. 18:15 Safety Checks: Personal items have been removed. The door is open or patient has been hj placed in a hallway bed/chair. There are no family/friend visitors at this time Sitter present at this time. 18:15 Safety checks: Items removed: yes. Door open/sign placed on door: yes. Family/friend mh5 present: no. Sitter present: Yes. 18:30 Safety checks: Items removed: yes. Door open/sign placed on door: yes. Family/friend mh5 present: no. Sitter present: Yes. 18:45 Safety checks: Items removed: yes. Door open/sign placed on door: yes. Family/friend mh5 present: no. Sitter present: Yes. 18:58 Report given to ABDIFATAH Funez. 19:07 Josef May RN is Primary Nurse. jd3 19:21 Safety Checks: Personal items have been removed. The door is open or patient has been kk5 placed in a hallway bed/chair. There are no family/friend visitors at this time Sitter present at this time. 19:47 Safety Checks: Personal items have been removed. The door is open or patient has been kk5 placed in a hallway bed/chair. There are no family/friend visitors at this time Sitter present at this time. 20:07 Safety Checks: Personal items have been removed. The door is open or patient has been kk5 placed in a hallway bed/chair. There are no family/friend visitors at this time Sitter present at this time. 20:14 Safety Checks: Personal items have been removed. The door is open or patient has been kk5 placed in a hallway bed/chair. There are no family/friend visitors at this time Sitter present at this time. 20:30 Safety Checks: Personal items have been removed. The door is open or patient has been kk5 placed in a hallway bed/chair. There are no family/friend visitors at this time Sitter present at this time. 20:48 Safety Checks: Personal items have been removed. The door is open or patient has been kk5 placed in a hallway bed/chair. There are no family/friend visitors at this time Sitter present at this time. 21:01 Safety Checks: Personal items have been removed. The door is open or patient has been kk5 placed in a hallway bed/chair. There are no family/friend visitors at this time Sitter present at this time. 21:22 Safety Checks: Personal items have been removed. The door is open or patient has been kk5 placed in a hallway bed/chair. There are no family/friend visitors at this time Sitter present at this time. Pt alert and oriented. Cooperative with lab draw. No complaints at this time. 21:45 Safety Checks: Personal items have been removed. The door is open or patient has been kk5 placed in a hallway bed/chair. There are no family/friend visitors at this time Sitter present at this time. 22:01 Safety Checks: Personal items have been removed. The door is open or patient has been kk5 placed in a hallway bed/chair. There are no family/friend visitors at this time Sitter present at this time. 22:16 Safety Checks: Personal items have been removed. The door is open or patient has been kk5 placed in a hallway bed/chair. There are no family/friend visitors at this time Sitter present at this time. 22:29 Safety Checks: Personal items have been removed. The door is open or patient has been kk5 placed in a hallway bed/chair. There are no family/friend visitors at this time Sitter present at this time. 22:45 Safety Checks: Personal items have been removed. The door is open or patient has been kk5 placed in a hallway bed/chair. There are no family/friend visitors at this time Sitter present at this time. 22:58 Safety Checks: Personal items have been removed. The door is open or patient has been kk5 placed in a hallway bed/chair. There are no family/friend visitors at this time Sitter present at this time. 23:15 Safety Checks: Personal items have been removed. The door is open or patient has been kk5 placed in a hallway bed/chair. There are no family/friend visitors at this time Sitter present at this time. 23:28 Safety Checks: Personal items have been removed. The door is open or patient has been kk5 placed in a hallway bed/chair. Sitter present at this time. Doctor bedside. 23:30 Safety checks: Items removed: yes. Door open/sign placed on door: yes. Family/friend ms present: no. Sitter present: Yes. 23:45 Safety checks: Items removed: yes. Door open/sign placed on door: yes. Family/friend ms present: no. Sitter present: Yes. 11/23 00:00 Safety checks: Items removed: yes. Door open/sign placed on door: yes. Family/friend ms present: no. Sitter present: Yes. 00:15 Safety checks: Items removed: yes. Door open/sign placed on door: yes. Family/friend ms present: no. Sitter present: Yes. 00:30 Safety checks: Items removed: yes. Door open/sign placed on door: yes. Family/friend ms present: no. Sitter present: Yes. 00:45 Safety checks: Items removed: yes. Door open/sign placed on door: yes. Family/friend ms present: no. Sitter present: Yes. 00:53 PHCP role handed off by Sachin Hall PA [email or web address] 00:53 Simon Merino PA is PHCP. jr8 01:00 Safety checks: Items removed: yes. Door open/sign placed on door: yes. Family/friend ms present: no. Sitter present: Yes. 01:15 Safety checks: Items removed: yes. Door open/sign placed on door: yes. Family/friend ms present: no. Sitter present: Yes. 01:26 IV discontinued, intact, bleeding controlled, No redness/swelling at site. Pressure jd3 dressing applied. 01:26 No provider procedures requiring assistance completed. jd3 01:30 Safety checks: Items removed: yes. Door open/sign placed on door: yes. Family/friend ms present: no. Sitter present: Yes. 01:45 Safety checks: Items removed: yes. Door open/sign placed on door: yes. Family/friend ms present: no. Sitter present: Yes. Administered Medications: 11/22 13:38 Drug: Banana Bag - (NS 0.9% 1000 ml, foLIC Acid 1 mg, Thiamine 100 mg, Multivitamin 1 hj amp) Route: IV; Rate: 200 calculated rate; Site: right antecubital; 19:00 Follow up: Response: No adverse reaction; IV Status: Completed infusion; infusion jd3 completed upon card checker taking over care for pt at 1900 14:08 Drug: Ativan 0.5 mg Route: IVP; Site: right hand; hj 14:14 Follow up: Response: No adverse reaction; Anxiety decreased hj 17:35 Not Given (not available per pharmacy): Benadryl 25 mg IM once hj 17:51 Drug: HALdol (as decanoate) 10 mg Route: IM; Site: left deltoid; hj 17:52 Follow up: Response: No adverse reaction hj 17:51 Drug: Ativan 1 mg Route: IM; Site: left deltoid; hj 18:26 Follow up: Response: No adverse reaction; Anxiety decreased hj 17:51 Drug: hydrOXYzine 25 mg Route: PO; hj 17:52 Follow up: Response: No adverse reaction hj Intake: Outcome: 11/23 01:05 ER care complete, transfer ordered by jrLong 01:45 Transferred by ground EMS to [facility], Transfer form completed. Note: jd3 report given to EMS. 01:45 Condition: stable 01:45 Instructed on the need for transfer, Demonstrated understanding of instructions. 01:48 Patient left the ED. jd3 Signatures: Clarissa Dangelo ms, Josh, PA PA jr8 Sebas Lua RN RN hj Page, Corey, PA PA cp Guevara, Marleny, ABDIFATAH RN Clarissa Mayorga Josef Hope RN RN jd3 Botello, Elizabeth eb Teague, Danielle 2 Melody Holley kk5 Corrections: (The following items were deleted from the chart) 11/22 18:26 12:24 Presenting complaint: Patient states: pt states to her 2 sisters today, "I want hj to kill myself thru a sonoscope operator", pt was A\\T\\O x 3; a [facility] pt; 19:22 19:19 Safety Checks: Personal items have been removed. The door is open or patient has kk5 been placed in a hallway bed/chair. A family member and/or friend is present and encouraged to stay. kk5 19:34 19:08 Reassessment: Patient appears in no apparent distress at this time. Patient jd3 and/or family updated on plan of care and expected duration. Pain level reassessed. Patient is alert, oriented x 3, equal unlabored respirations, skin warm/dry/pink. resting in bed with eyes closed, even and unlabored respirations, no distress noted at this time. sitter at bedside. jd3 21:00 20:52 Reassessment: Patient appears in no apparent distress at this time. Patient jd3 and/or family updated on plan of care and expected duration. Pain level reassessed. Patient is alert, oriented x 3, equal unlabored respirations, skin warm/dry/pink. jd3 21:00 21:00 Reassessment: Patient appears in no apparent distress at this time. Patient jd3 and/or family updated on plan of care and expected duration. Pain level reassessed. Patient is alert, oriented x 3, equal unlabored respirations, skin warm/dry/pink. jd3
--- NOTE | 2017-11-23 07:37 | EKG ---
Test Date: 2017-11-22 Test Time: 12:55:13 Casting Finisher: NEETU MEASUREMENT RESULTS: Intervals: Rate: 122 TX: 156 QRSD: 88 QT: 314 QTc: 447 [place]: P: 46 TX: 156 QRS: 27 T: 46 INTERPRETIVE STATEMENTS: Sinus tachycardia Nonspecific T wave abnormality Abnormal ECG Compared to ECG 10/05/2017 12:43:45 No significant changes Electronically Signed On 11-23-17 07:34:25 CDT by Boni Moon
== END 2017-11-23 01:48 | disposition short-term general hospital (02) ==
LOC: ER 12:18
DX: R45.851 Suicidal ideations (principal); F10.20 Alcohol dependence, uncomplicated; F20.9 Schizophrenia, unspecified; F43.10 Post-traumatic stress disorder, unspecified; Z72.0 Tobacco use
CPT/HCPCS: 36415; 80048; 80076; 80307; 80320; 80329; 81003; 85025; 85610; 85730; 93005; 96365; 96366; 96372; 96375; 99285; J1630; J3410; J3411; J7030

== ENCOUNTER 2017-11-28 14:33 | Emergency (ER) | payer SELFPAY ==
--- OUTSIDE RECORDS SUMMARY | 2017-11-28 14:37 | XMS REPORT | Clinical Summary ---
:1985 Author Organization [facility] Address [address] [place] [address] Care Team Providers Name Role Phone Asked, No Pcp Primary Care Provider Unavailable Allergies No Known Allergies Current Medications Prescription Sig. Disp. Refills Start Date End Date Status QUEtiapine Take 400 mg by Active (SEROquel) 200 MG mouth nightly. tabletIndications: Depression Treatment Adjunct gabapentin Take 2 180 capsule 0 11/26/2017 Active (NEURONTIN) 300 mg capsules (600 8 capsuleIndications mg total) by : Alcoholism mouth 3 (three) times a day for 30 days. nicotine (NICODERM Place 1 patch 30 patch 0 11/26/2017 Active CQ) 21 mg/24 on the skin 8 hrIndications: daily as Smoking Cessation needed (prn only) for up to 30 days. PARoxetine (PAXIL) Take 30 mg by Discontinued 30 MG tablet mouth every 8 morning. Active Problems Problem Noted Date Alcohol withdrawal syndrome with perceptual disturbance 11/23/2017 Substance-induced psychotic disorder with hallucinations 11/23/2017 Alcohol use disorder, severe, dependence 11/23/2017 Cannabis use disorder, moderate, dependence 11/23/2017 Moderate benzodiazepine use disorder 11/23/2017 Resolved Problems Problem Noted Date Resolved Date Suicidal ideations 11/23/2017 11/23/2017 Encounters Date Type Specialty Care Team Description 11/23/2017 - Hospital Encounter Psychiatry Judy Weber MD 11/26/2017 11/23/2017 Intake Access N/A 10/07/2017 Intake Access N/A 10/05/2017 Intake Access N/A after 11/27/2016 Family History Medical History Relation Name Comments Alcohol abuse Father Schizophrenia Maternal Aunt Suicide Attempts Maternal Aunt Alcohol abuse Mother Alcohol abuse Sister Relation Name Status Comments Father Maternal Aunt Mother Sister Social History Tobacco Use Types Packs/Day Years Used Date Current Some Day Smoker Cigarettes 0.25 15 Started: 11/24/1999 Smokeless Tobacco: Never Used Tobacco Cessation: Ready to Quit: No; Counseling Given: Yes Comments: smokes when available Alcohol Use Drinks/Week oz/Week Comments Yes 5 Cans of beer 3.0 drinks daily Sex Assigned at Date Recorded Not on file Last Filed Vital Signs Vital Sign Reading Time Taken Blood Pressure 138/78 11/26/2017 12:37 PM CDT Pulse 90 11/26/2017 12:37 PM CDT Temperature 35.8 C (96.5 F) 11/26/2017 12:15 PM CDT Respiratory Rate 14 11/26/2017 12:15 PM CDT Oxygen Saturation 100% 11/26/2017 5:41 AM CDT Inhaled Oxygen Concentration - - Weight 77.8 kg (171 lb 8 oz) 11/23/2017 3:49 AM CDT Height 172.7 cm (5' 8") 11/23/2017 3:49 AM CDT Body Mass Index 26.08 11/23/2017 3:49 AM CDT Plan of Treatment Not on file Procedures Procedure Name Priority Date/Time Associated Comments Diagnosis ZZESTIMATED GFR Routine 11/24/2017 10:11 Results for this PM CDT procedure are in the results section. GGT Routine 11/24/2017 10:11 Results for this PM CDT procedure are in the results section. COMPREHENSIVE Routine 11/24/2017 10:11 Results for this METABOLIC PANEL PM CDT procedure are in the results section. PROTHROMBIN TIME WITH Routine 11/24/2017 9:41 Results for this INR PM CDT procedure are in the results section. HC COMPLETE BLD COUNT Routine 11/24/2017 9:41 Results for this W/AUTO DIFF PM CDT procedure are in the results section. ECG 12-LEAD Routine 11/23/2017 9:57 Results for this AM CDT procedure are in the results section. LIPID PANEL Routine 11/23/2017 4:52 Results for this AM CDT procedure are in the results section. HEMOGLOBIN A1C Routine 11/23/2017 4:35 Results for this AM CDT procedure are in the results section. after 11/27/2016 Results Estimated GFR (11/24/2017 10:11 PM) GFR Non Af Amer >90 mL/min/1.73 m2 [facility] DEPARTMENT OF PATHOLOGY AND GENOMIC MEDICINE GFR Af Amer >90 mL/min/1.73 m2 [facility] DEPARTMENT OF Comment: PATHOLOGY AND GENOMIC Chronic kidney disease: <60 mL/min/1.73m2 MEDICINE Kidney failure: <15 mL/min/1.73m2 The estimated GFR is calculated from the IDMS-traceable Modification of Diet in Renal Disease Equation. The accuracy of the calculation is poor when the creatinine is normal. Calculated values >90 mL/min/1.73m2 are not reported. This equation has not been validated in children (<18 years), women, the elderly (>70 years), or ethnic groups other than Caucasians and Americans. Specimen Plasma specimen Performing Organization Address City/State/Zipcode Phone Number [facility] DEPARTMENT OF PATHOLOGY AND [address] [place] [address] GGT (11/24/2017 10:11 PM) GGT 41 0 - 59 U/L [facility] DEPARTMENT OF PATHOLOGY [facility] GENOMIC MEDICINE Specimen Plasma specimen Performing Organization Address City/[facility]/Zipcode Phone Number [facility] DEPARTMENT OF PATHOLOGY AND [address] [place] [address] Comprehensive metabolic panel (11/24/2017 10:11 PM) Sodium 140 135 - 148 mEq/L [facility] DEPARTMENT OF PATHOLOGY AND GENOMIC MEDICINE Potassium 4.3 3.5 - 5.0 mEq/L [facility] DEPARTMENT OF PATHOLOGY AND GENOMIC MEDICINE Chloride 100 98 - 112 mEq/L [facility] DEPARTMENT OF PATHOLOGY AND GENOMIC MEDICINE CO2 27 24 - 31 mEq/L [facility] DEPARTMENT OF PATHOLOGY AND GENOMIC MEDICINE Anion gap 13@ANIO 7 - 15 mEq/L [facility] DEPARTMENT OF PATHOLOGY AND GENOMIC MEDICINE BUN 13 6 - 20 mg/dL [facility] DEPARTMENT OF PATHOLOGY AND GENOMIC MEDICINE Creatinine 0.7 0.7 - 1.2 mg/dL [facility] DEPARTMENT OF PATHOLOGY AND GENOMIC MEDICINE Glucose 100 (H) 65 - 99 mg/dL [facility] DEPARTMENT OF PATHOLOGY AND GENOMIC MEDICINE Calcium 9.9 8.3 - 10.2 mg/dL [facility] DEPARTMENT OF PATHOLOGY AND GENOMIC MEDICINE Protein 7.5 6.3 - 8.3 g/dL [facility] DEPARTMENT OF Comment: PATHOLOGY AND GENOMIC [place] 4.6-7.0 g/dL MEDICINE 1 week 4.4-7.6 g/dL 7 months-1year5.1-7.3 g/dL 1-2 years5.6-7.5 g/dL >3 years6.0-8.0 g/dL 18-150 6.3-8.3 g/dL Albumin 3.8 3.5 - 5.0 g/dL [facility] DEPARTMENT OF PATHOLOGY AND GENOMIC MEDICINE A/G ratio 1.0 0.7 - 3.8 [facility] DEPARTMENT OF PATHOLOGY AND GENOMIC MEDICINE Alkaline phosphatase 56 40 - 129 U/L [facility] DEPARTMENT OF PATHOLOGY AND GENOMIC MEDICINE AST 107 (H) 10 - 50 U/L [facility] DEPARTMENT OF PATHOLOGY AND GENOMIC MEDICINE ALT 68 (H) 5 - 50 U/L [facility] DEPARTMENT OF PATHOLOGY AND GENOMIC MEDICINE Total bilirubin 0.4 0.0 - 1.2 mg/dL [facility] DEPARTMENT OF PATHOLOGY AND GENOMIC MEDICINE Specimen Plasma specimen Performing Organization Address City/[facility] [email or web address] Phone Number [facility] DEPARTMENT OF PATHOLOGY [address] Prothrombin time with INR (11/24/2017 9:41 PM) Prothrombin time 12.8 12.0 - 15.0 sec [facility] DEPARTMENT OF PATHOLOGY AND GENOMIC MEDICINE INR 1.0 [facility] DEPARTMENT OF Comment: PATHOLOGY AND GENOMIC The International Normalized Ratio (INR) is a therapeutic MEDICINE monitoring tool for patients who are stable on oral anticoagulant therapy. An INR of 2.0-3.0 is suggested for deep vein thrombosis/pulmonary embolism. Specimen Blood Performing Organization Address City/[facility] [[email or web address] Phone Number [facility] DEPARTMENT OF PATHOLOGY AND [address] [place] [address] CBC with platelet and differential (11/24/2017 9:41 PM) WBC 5.52 4.50 - 11.00 k/uL [facility] DEPARTMENT OF PATHOLOGY AND GENOMIC MEDICINE RBC 4.43 4.40 - 6.00 m/uL [facility] DEPARTMENT OF PATHOLOGY AND GENOMIC MEDICINE HGB 14.1 14.0 - 18.0 g/dL [facility] DEPARTMENT OF PATHOLOGY AND GENOMIC MEDICINE HCT 41.7 41.0 - 51.0 % [facility] DEPARTMENT OF PATHOLOGY AND GENOMIC MEDICINE MCV 94.1 82.0 - 100.0 fL [facility] DEPARTMENT OF PATHOLOGY AND GENOMIC MEDICINE MCH 31.8 27.0 - 34.0 pg [facility] DEPARTMENT OF PATHOLOGY AND GENOMIC MEDICINE MCHC 33.8 31.0 - 37.0 g/dL [facility] DEPARTMENT OF PATHOLOGY AND GENOMIC MEDICINE RDW - SD 40.1 37.0 - 55.0 fL [facility] DEPARTMENT OF PATHOLOGY AND GENOMIC MEDICINE MPV 9.4 8.8 - 13.2 fL [facility] DEPARTMENT OF PATHOLOGY AND GENOMIC MEDICINE Platelet count 157 150 - 400 k/uL [facility] DEPARTMENT OF PATHOLOGY AND GENOMIC MEDICINE Nucleated RBC 0.00 /100 WBC [facility] DEPARTMENT OF PATHOLOGY AND GENOMIC MEDICINE Neutrophils 72.4 (H) 39.0 - 69.0 % [facility] DEPARTMENT OF PATHOLOGY AND GENOMIC MEDICINE Lymphocytes 17.9 (L) 25.0 - 45.0 % [facility] DEPARTMENT OF PATHOLOGY AND GENOMIC MEDICINE Monocytes 7.8 0.0 - 10.0 % [facility] DEPARTMENT OF PATHOLOGY AND GENOMIC MEDICINE Eosinophils 1.1 0.0 - 5.0 % [facility] DEPARTMENT OF PATHOLOGY AND GENOMIC MEDICINE Basophils 0.4 0.0 - 1.0 % [facility] DEPARTMENT OF PATHOLOGY AND GENOMIC MEDICINE Immature granulocytes 0.4Comment: 0.0 - 1.0 % [facility] DEPARTMENT OF "Immature PATHOLOGY AND GENOMIC granulocytes" MEDICINE (promyelocytes, myelocytes, metamyelocytes) Specimen Blood Performing Organization Address City/[facility] [[email or web address] Phone Number [facility] DEPARTMENT OF PATHOLOGY AND [address] [place] [address] [facility] ECG 12 lead (11/23/2017 9:57 AM) Ventricular rate 79 [facility] Atrial rate 79 [facility] IL interval 126 [facility] QRSD interval 94 [facility] QT interval 404 [facility] QTC interval 463 [facility] P axis 1 21 [facility] QRS axis 1 29 [facility] T wave axis 38 [facility] EKG impression Normal sinus rhythm-Normal ECG-No previous [facility] ECGs available- Performing Organization Address City/[facility] [[email or web address] Phone Number [facility] [address] [place] [address] Lipid panel (11/23/2017 4:52 AM) Cholesterol 136 <200 mg/dL [facility] DEPARTMENT OF PATHOLOGY AND GENOMIC MEDICINE Triglycerides 127 <150 mg/dL [facility] DEPARTMENT OF PATHOLOGY AND GENOMIC MEDICINE HDL cholesterol 65 >40 mg/dL [facility] DEPARTMENT OF PATHOLOGY AND GENOMIC MEDICINE LDL cholesterol 63Comment: Result <100 mg/dL [facility] DEPARTMENT OF obtained by direct LDL PATHOLOGY AND GENOMIC measurement MEDICINE [facility] Comment: PATHOLOGY AND GENOMIC Total Cholesterol (mg/dL) MEDICINE <200 Desirable [id number] >=240High Triglycerides (mg/dL) <150 Normal [id number] 200-499High >=500Very high HDL Cholesterol (mg/dL) <40Low (male) <40Low (female) LDL Cholesterol (mg/dL) <100 Optimal 100-129Near or above optimal [id number]-iyta 160-189High >=190Very high Risk Catergories that modify LDL goals. Risk CatergoriesLDL goal (mg/dL) CHD and CHD risk equivalent<100 (10-year risk >20%) Multiple (2+) risk factors <130 (10-year risk=<20%) 0-1 risk factors <160 (<10-year risk) Defining levels of lipids in metabolic syndrome Triglycerides>=150 mg/dL HDL Cholesterol Men<40 mg/dL Women<40 mg/dL Non-HDL cholesterol is a second target for therapy in persons with high triglycerides (>=200 mg/dL) Specimen Plasma specimen Performing Organization Address City/State/[facility] [[email or web address] Phone Number [facility] DEPARTMENT OF PATHOLOGY AND [address] [place] [address] Responde Ai [facility] Hemoglobin A1c (11/23/2017 4:35 AM) Hemoglobin A1C 5.2 4.0 - 5.6 % [facility] DEPARTMENT OF PATHOLOGY Comment: AND GENOMIC MEDICINE HbA1c cutoffs for diagnosing diabetes: 4.0% - 5.6%=normal 5.7% - 6.4%=increased risk for diabetes (prediabetes) >=6.5%=diabetes Goals for glycemic control (ADA 2016) < 7.0%Target for non adults with diabetes. More or less stringent targets may be appropriate for individual patients. <7.5% Target for Children and adolescents with type 1 diabetes. Specimen Blood Performing Organization Address City/[facility]/Zipcode Phone Number [facility] DEPARTMENT OF PATHOLOGY AND [address] [place] [address] [place] [employer] after 11/27/2016 Insurance Payer Benefit Plan / Group Subscriber ID Type Phone Address PENDING MEDICAID PENDING DISABILITY MEDICAID xxxxxxxxx Medicaid COVERAGE
[2017-11-28 15:49] LABS: Hematocrit 37.7 % (39.6-49.0); MCH 33.4 pg (27.0-35.0); MCV 95.3 fL (80-100); MPV 7.6 fL (7.6-11.3); RBC Red Blood Cell Count 3.95 M/uL (4.33-5.43)
[2017-11-28 15:50] LABS: Absolute Lymphocytes (CBC) 0.9 K/uL (0.7-4.9); Absolute Monocytes 0.6 K/uL (0.1-1.3); Absolute Neutrophil 2.6 K/uL (1.8-8.0); Basophils % 0.2 % (0-1.3); Eosinophils % 1.5 % (0-4.4); Lymphocytes % 20.9 % (15.3-44.8); Monocytes % 14.7 % (3.3-12.3)
[2017-11-28 15:55] LABS: Urine Blood TRACE (NEG); Urine Glucose NEGATIVE (NEG); Urine Protein TRACE (NEG)
[2017-11-28 15:58] LABS: BUN Blood Urea Nitrogen 16 mg/dL (7-18); Bicarbonate 23 mmol/L (21-32); Glucose Level 117 mg/dL (74-106); Potassium 3.6 mmol/L (3.5-5.1); Sodium Level 145 mmol/L (136-145)
[2017-11-28 16:03] LABS: Barbiturates NEGATIVE (NEGATIVE); Benzodiazepines POSITIVE (NEGATIVE); Cocaine NEGATIVE (NEGATIVE); METHAMPHETAM NEGATIVE (NEGATIVE); Methadone NEGATIVE (NEGATIVE); Opiates NEGATIVE (NEGATIVE); Phencyclidine NEGATIVE (NEGATIVE); THC Cannibis NEGATIVE (NEGATIVE)
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
--- NOTE | 2017-11-28 16:12 | ER ---
Nurse's Notes [facility] Name: Devon Hwang Age: 32 yrs Sex: Male : 1985 Arrival Date: 11/28/2017 Time: 14:35 Bed 16 Private MD: Diagnosis: Irritability and anger Presentation: 11/28 14:46 Presenting complaint: Patient states: "I got into an argument with my sister, so she ss called the [employer] spreader and now I'm here. I don't want to stay, I've been here three times for similar things, and was just released yesterday from [facility], and I just want to be released." Pt denies suicidal and/or homicidal ideations at this time and states he was brought to the hospital because they gave him the option of going to senior care or coming to hospital for further evaluation. Transition of care: patient was not received from another setting of care. Onset of symptoms is unknown. Risk Assessment: Do you want to hurt yourself or someone else? Other: pt denies SI/HI currently, but [place] [employer] states that patient was acting as if he were stabbing himself in the chest with a knife, stating that his sister was doing it. Initial Sepsis Screen: Does the patient meet any 2 criteria? HR > 90 bpm. Yes Does the patient have a suspected source of infection? No. Patient's initial sepsis screen is negative. Note [place] [employer] filed emergency jail warrant. Care prior to arrival: None. 14:46 Method Of Arrival: Law Enforcement: [place] [employer] 14:46 Acuity: MORENA 2 ss Historical: - Allergies: 14:52 No Known Allergies; ss - Home Meds: 14:52 Ativan (currently out) [Active]; ss - PMHx: 14:52 PTSD; Schizophrenia; ss - PSHx: 14:52 SBO repair; ss - Immunization history:: Adult Immunizations unknown. - Social history:: Smoking status: Patient/guardian denies using tobacco, Patient uses alcohol, occasionally. street drugs, marijuana. - Ebola Screening: : Patient denies exposure to infectious person Patient denies travel to an Ebola-affected area in the 21 days before illness onset. Screenin:45 Abuse screen: Denies threats or abuse. Denies injuries from another. Nutritional ph screening: No deficits noted. Tuberculosis screening: No symptoms or risk factors identified. Fall Risk None identified. Assessment: 15:00 General: Appears in no apparent distress. comfortable, slender, Behavior is calm, ph cooperative, appropriate for age. Pain: Denies pain. Neuro: Level of Consciousness is awake, alert, obeys commands, Oriented to person, place, time, situation. Cardiovascular: Capillary refill < 3 seconds in bilateral fingers Patient's skin is warm and dry. Respiratory: Airway is patent Respiratory effort is even, unlabored. GI: No signs and/or symptoms were reported involving the gastrointestinal system. Derm: Skin is intact, is healthy with good turgor, Skin is pink, warm \\T\\ dry. Musculoskeletal: Circulation, motion, and sensation intact. Range of motion: intact in all extremities. 16:00 Reassessment: Patient appears in no apparent distress at this time. Patient and/or ph family updated on plan of care and expected duration. Pain level reassessed. Patient is alert, oriented x 3, equal unlabored respirations, skin warm/dry/pink. ERP LUIS Walters at bedside to speak w/ pt, pt continues to deny suicidal or homicidal thoughts. Psych: 15:46 Subjective: Delusions are denied, Hallucinations are denied Having thoughts of pt ph denies suicidal or homicidal thoughts. Objective: Patient is cooperative, Speech is normal, Affect is appropriate. 15:46 Interventions: Removed personal items and placed in bag. Patient placed in hospital ph gown. Searched person for dangerous items. Urine collected and sent for urine drug test. Suicide Risk Assessment: Sad Person Scale: Sex of patient: Male: Score 1 point. Age of patient: Score 1 point if patient 15-34. Depression: Score 1 point if signs of depression are present. Previous Attempt: Score 1 point if patient has previously attempted suicide. Substance Abuse: Score 0 point if patient does not abuse alcohol or drugs. Rational Thinking: Score 0 point if patient has rational thinking. Social Support: Score 1 point if social support is lacking and/or unavailable. Organized Plan: Score 0 if patient did not have an organized plan in place. Relationship: Score 1 point if patient is , , , or for a single male Chronic Sickness: Score 0 point if patient does not have a chronic illness, debilitating, or severe disorder. TOTAL POINTS: If total points are 5-6, proposed clinical action is to strongly consider hospitalization, depending upon confidence in the follow-up arrangement. Implement suicide precautions. Safety Checks: Personal items have been removed. Door is open. No visitors are present at this time. Pt denies substance abuse. Vital Signs: 14:52 BP 164 / 102; Pulse 137; Resp 18; Pulse Ox 96% on R/A; Weight 77.11 kg; Height 5 ft. 8 ss in. (172.72 cm); Pain 0/10; 16:00 BP 157 / 87; Pulse 104; Resp 18; Temp 97.9(TE); Pulse Ox 97% on R/A; ph 14:52 Body Mass Index 25.85 (77.11 kg, 172.72 cm) ED Course: 14:35 Patient arrived in ED. ph 14:45 Safety checks: Items removed: yes. Door open/sign placed on door: yes. Family/friend jp3 present: no. Sitter present: Yes. 14:51 Triage completed. ss 14:52 Alondra Serna, RN is Primary Nurse. ph 14:52 Arm band placed on right wrist. ss 14:53 Sachin aHll PA is PHCP. cp 14:53 Rossi Stnoe MD is Attending Physician. cp 14:54 PHCP role handed off by Sachin Hall PA jr8 14:54 Simon Merino PA is PHCP. jr8 15:00 Safety checks: Items removed: yes. Door open/sign placed on door: yes. Family/friend jp3 present: no. Sitter present: Yes. Bed in low position. Warm blanket given. 15:15 Safety checks: Items removed: yes. Door open/sign placed on door: yes. Family/friend jp3 present: no. Sitter present: Yes. 15:23 EKG done, by printing technician. reviewed by Simon SMITH. 3 15:30 Safety checks: Items removed: yes. Door open/sign placed on door: yes. Family/friend jp3 present: no. Sitter present: Yes. 15:30 Initial lab(s) drawn, by me, sent to lab. Urine collected: clean catch specimen, clear, jp3 keya colored, Amount Voided: 100mL. 15:37 Alcohol Level Sent. jp3 15:37 UDS Sent. jp3 15:37 Basic Metabolic Panel Sent. jp3 15:37 CBC with Diff Sent. jp3 15:45 Safety checks: Items removed: yes. Door open/sign placed on door: yes. Family/friend jp3 present: no. Sitter present: Yes. 15:47 Alcohol Level Sent. jp3 15:47 Basic Metabolic Panel Sent. jp3 15:47 CBC with Diff Sent. jp3 15:49 Urine Dipstick--Ancillary (enter results) Sent. jp3 15:49 UDS Sent. jp3 16:00 Safety checks: Items removed: yes. Door open/sign placed on door: yes. Family/friend jp3 present: no. Sitter present: Yes. 16:15 Safety checks: Items removed: yes. Door open/sign placed on door: yes. Family/friend jp3 present: no. Sitter present: Yes. 16:18 No provider procedures requiring assistance completed. Patient did not have IV access ph during this emergency room visit. Administered Medications: No medications were administered Outcome: 16:12 Discharge ordered by MD. valenzuela 16:43 Patient left the ED. ph 16:43 Discharged to home ambulatory. ph 16:43 Condition: good 16:43 Discharge instructions given to patient, Instructed on discharge instructions, follow up and referral plans. Demonstrated understanding of instructions, follow-up care. Signatures: Iraida Farmer RN RN Simon Merino PA PA jr8 Alondra Serna RN RN ph Sachin Hall PA PA cp Montes, Shakira 3 Yg Montes jp3 Corrections: (The following items were deleted from the chart) 16:19 14:45 Safety checks: Items removed: yes. no. Reason for not removing items: Door jp3 open/sign placed on door: yes. Family/friend present: no. Sitter present: Yes. jp3
--- NOTE | 2017-11-28 19:10 | EKG ---
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
== END 2017-11-28 16:43 | disposition home or self-care (01) ==
LOC: ER 14:33
DX: R45.4 Irritability and anger (principal); F20.9 Schizophrenia, unspecified; F43.10 Post-traumatic stress disorder, unspecified
CPT/HCPCS: 36415; 80048; 80307; 80320; 81003; 85025; 93005; 99283

== ENCOUNTER 2018-08-04 13:26 | Emergency (ER) | payer SELFPAY ==
--- OUTSIDE RECORDS SUMMARY | 2018-08-04 13:29 | XMS REPORT | Clinical Summary ---
:1985 Author Organization [facility] Address [address] [place] [address] Care Team Providers Name Role Phone Asked, No Pcp Primary Care Provider Unavailable Allergies No Known Allergies Medications Medication Sig Dispensed Refills Start Date End Date Status QUEtiapine Take 400 mg by 0 Active (SEROquel) 200 MG mouth nightly. tabletIndications : Depression Treatment Adjunct PARoxetine Take 30 mg by 0 11/26/2017 Discontinued (PAXIL) 30 MG mouth every tablet morning. gabapentin Take 2 180 capsule 0 11/26/2017 12/26/2017 (NEURONTIN) 300 capsules (600 mg mg total) by capsuleIndication mouth 3 s: alcoholism (three) times a day for [address] 1 patch 30 patch 0 11/26/2017 12/26/2017 (NICODERM CQ) 21 on the skin mg/24 daily as hrIndications: needed (prn Smoking Cessation only) for up to 30 days. Active Problems Problem Noted Date Alcohol withdrawal [...] Access N/A 10/05/2017 Intake Access N/A after 08/03/2017 Family History Medical History Relation Name Comments [...] Assigned at Date Recorded Not on file Job Start Date Occupation Industry Not on file Not on file Not on file Travel History Travel Start Travel End No recent travel history available. Last Filed Vital Signs Vital Sign Reading [...] procedure are in the results section. after 08/03/2017 Results Estimated GFR (11/24/2017 10:11 PM CDT) GFR Non Af Amer >90 mL/min/1.73 [facility]PART[facility] OF m2 PATHOLOGY AND GENOMIC MEDICINE GFR Af Amer >90 mL/min/1.73 [facility]PART[facility] OF Comment: m2 PATHOLOGY AND Chronic kidney disease: <60 mL/min/1.73m2 GENOMIC MEDICINE Kidney failure: <15 mL/min/1.73m2 The estimated [...] specimen Performing Organization Address City/State/Zipcode Phone Number [facility] DEPARTMENT OF PATHOLOGY AND [address] [place] [address] GGT (11/24/2017 10:11 PM CDT) Pathologist [facility] GGT 41 0 - 59 U/L [facility]PART[facility] OF PATHOLOGY AND GENOMIC MEDICINE Specimen Plasma specimen Performing Organization Address City/State/Zipcode Phone Number [facility] DEPARTMENT OF PATHOLOGY AND [address] [place] [id number] [facility] Comprehensive metabolic panel (11/24/2017 10:11 PM CDT) Pathologist [facility] Sodium 140 135 - 148 [facility] DEPARTMENT OF mEq/L PATHOLOGY AND GENOMIC MEDICINE Potassium 4.3 3.5 - 5.0 [facility] OF mEq/L PATHOLOGY AND GENOMIC MEDICINE Chloride 100 98 - 112 mEq/L [facility] OF PATHOLOGY AND GENOMIC MEDICINE CO2 27 24 - 31 mEq/L [facility] OF PATHOLOGY AND GENOMIC MEDICINE Anion gap 13@ANIO 7 - 15 mEq/L [facility] OF PATHOLOGY AND GENOMIC MEDICINE BUN 13 6 - 20 mg/dL [facility] OF PATHOLOGY AND GENOMIC MEDICINE Creatinine 0.7 0.7 - 1.2 [facility] OF mg/dL PATHOLOGY AND GENOMIC MEDICINE Glucose 100 (H) 65 - 99 mg/dL [facility] OF PATHOLOGY AND GENOMIC MEDICINE Calcium 9.9 8.3 - 10.2 [facility] DEPARTMENT OF mg/dL PATHOLOGY AND GENOMIC MEDICINE Protein 7.5 6.3 - 8.3 g/dL [facility] DEPART[facility] OF Comment: PATHOLOGY AND 4.6-7.0 g/dL GENOMIC MEDICINE 1 week 4.4-7.6 g/dL 7 months-1year5.1-7.3 g/dL 1-2 years5.6-7.5 g/dL >3 years6.0-8.0 g/dL 18-150 6.3-8.3 g/dL Albumin 3.8 3.5 - 5.0 g/dL [facility] OF PATHOLOGY AND GENOMIC MEDICINE A/G ratio 1.0 0.7 - 3.8 [facility] OF PATHOLOGY AND GENOMIC MEDICINE Alkaline phosphatase 56 40 - 129 U/L [facility] OF PATHOLOGY AND GENOMIC MEDICINE AST 107 (H) 10 - 50 U/L [facility] OF PATHOLOGY AND GENOMIC MEDICINE ALT 68 (H) 5 - 50 U/L [facility] OF PATHOLOGY AND GENOMIC MEDICINE Total bilirubin 0.4 0.0 - 1.2 [facility] OF mg/dL PATHOLOGY AND GENOMIC MEDICINE Specimen Plasma specimen Performing Organization Address City/[facility] Phone Number [facility] OF PATHOLOGY AND [address] [place] [address] Prothrombin time with INR (11/24/2017 9:41 PM CDT) Prothrombin time 12.8 12.0 - 15.0 [facility] DEPART[facility] OF [facility] PATHOLOGY AND GENOMIC MEDICINE INR 1.0 [facility] DEPART[facility] OF Comment: PATHOLOGY AND The International Normalized Ratio (INR) is a therapeutic GENOMIC MEDICINE monitoring tool for patients who are stable on oral anticoagulant therapy. An INR of 2.0-3.0 is suggested for deep vein thrombosis/pulmonary embolism. Specimen Blood Performing Organization Address City/[facility] Cent[facility]ode Phone Number [facility] DEPARTMENT OF PATHOLOGY AND [address] [place], [place] [phone] [employer] [facility] CBC with platelet and differential (11/24/2017 9:41 PM CDT) WBC 5.52 4.50 - 11.00 [facility] DEPART[facility] OF k/uL PATHOLOGY AND GENOMIC MEDICINE RBC 4.43 4.40 - 6.00 [facility]PART[facility] OF m/uL PATHOLOGY AND GENOMIC MEDICINE HGB 14.1 14.0 - 18.0 [facility] OF g/dL PATHOLOGY AND GENOMIC MEDICINE HCT 41.7 41.0 - 51.0 % [facility] OF PATHOLOGY AND GENOMIC MEDICINE MCV 94.1 82.0 - 100.0 [facility] DEPARTMENT OF fL PATHOLOGY AND GENOMIC MEDICINE MCH 31.8 27.0 - 34.0 [facility] DEPARTMENT OF pg PATHOLOGY AND GENOMIC MEDICINE MCHC 33.8 31.0 - 37.0 [facility] OF g/dL PATHOLOGY AND GENOMIC MEDICINE RDW - SD 40.1 37.0 - 55.0 [facility] DEPARTMENT OF fL PATHOLOGY AND GENOMIC MEDICINE MPV 9.4 8.8 - 13.2 fL [facility] OF PATHOLOGY AND GENOMIC MEDICINE Platelet count 157 150 - 400 [facility] OF k/uL PATHOLOGY AND GENOMIC MEDICINE Nucleated RBC 0.00 /100 WBC [facility]PART[facility] OF PATHOLOGY AND GENOMIC MEDICINE Neutrophils 72.4 (H) 39.0 - 69.0 % [facility] OF PATHOLOGY AND GENOMIC MEDICINE Lymphocytes 17.9 (L) 25.0 - 45.0 % [facility] OF PATHOLOGY AND GENOMIC MEDICINE Monocytes 7.8 0.0 - 10.0 % [facility] OF PATHOLOGY AND GENOMIC MEDICINE Eosinophils 1.1 0.0 - 5.0 % [facility] OF PATHOLOGY AND GENOMIC MEDICINE Basophils 0.4 0.0 - 1.0 % [facility] OF PATHOLOGY AND GENOMIC MEDICINE Immature granulocytes 0.4Comment: 0.0 - 1.0 % [facility] DEPART[facility] OF "Immature PATHOLOGY AND granulocytes" GENOMIC MEDICINE (promyelocytes , myelocytes, metamyelocytes ) Specimen Blood Performing Organization Address City/[facility]/Zipcode Phone Number [facility] DEPARTMENT OF PATHOLOGY AND [address] [place] [id number] [facility] ECG 12 lead (11/23/2017 9:57 AM CDT) Ventricular rate 79 [facility] Atrial rate 79 [facility] DC interval 126 [facility] QRSD interval 94 [facility] QT interval 404 [facility] QTC interval 463 [facility] P axis 1 21 [facility] QRS axis 1 29 [facility] T wave axis 38 [facility] EKG impression Normal sinus [facility] rhythm-Normal ECG-No previous ECGs available-Electronicall y Signed By Suzanne Ashley MD ([id number]) on 11/23/2017 7:18:39 PM Specimen Performing Organization Address City/[facility] Centercode Phone Number [facility] [address] [place] [address] Lipid panel (11/23/2017 4:52 AM CDT) Cholesterol 136 <200 mg/dL [facility] DEPARTMENT OF PATHOLOGY AND GENOMIC MEDICINE Triglycerides 127 <150 mg/dL [facility] OF PATHOLOGY AND GENOMIC MEDICINE HDL cholesterol 65 >40 mg/dL [facility] OF PATHOLOGY AND GENOMIC MEDICINE LDL cholesterol 63Comment: Result <100 mg/dL [facility] obtained by direct OF PATHOLOGY AND LDL measurement GENOMIC MEDICINE Lipid panel SeeBelow [facility] interpretation Comment: OF PATHOLOGY AND Total Cholesterol (mg/dL) GENOMIC MEDICINE <200 Desirable [id number] >=240High Triglycerides (mg/dL) <150 Normal [id number] 200-499High >=500Very high HDL Cholesterol (mg/dL) <40Low (male) <40Low (female) LDL Cholesterol (mg/dL) <100 Optimal 100-129Near or above optimal [phone]-mijz 160-189High >=190Very high Risk Catergories that modify [...] mg/dL) Specimen Plasma specimen Performing Organization Address City/State/Zipcode Phone Number [facility] DEPARTMENT OF PATHOLOGY AND [address] [place], [place] [phone] [facility] Hemoglobin A1c (11/23/2017 4:35 AM CDT) Hemoglobin A1C 5.2 4.0 - 5.6 % [facility] DEPART[facility] OF Comment: PATHOLOGY AND HbA1c cutoffs for diagnosing diabetes: GENOMIC MEDICINE 4.0% - 5.6%=normal 5.7% - 6.4%=increased risk for diabetes (prediabetes) >=6.5%=diabetes Goals for glycemic control (ADA 2016) < 7.0%Target for non adults with diabetes. More or less stringent targets may be appropriate for individual patients. <7.5% Target for Children and adolescents with type 1 diabetes. Specimen Blood Performing Organization Address City/State/Zipcode Phone Number [facility] DEPARTMENT OF PATHOLOGY AND [address] [place] [phone] GENOMIC MEDICINE after 08/03/2017 Insurance Payer Benefit Plan / Subscriber ID Effective Dates Phone Address Type Group PENDING PENDING xxxxxxxxx 2017-Present Medicaid MEDICAID DISABILITY MEDICAID COVERAGE Advance Directives Patient has advance care planning documents, and code status on file. For more information, please contact:Familia Rosenbaum[address] [place] [address] Code Status Date Activated Date Inactivated Comments Full Code 11/23/2017 5:28 AM 11/26/2017 5:48 PM Code Status decision reached by: Patient
[2018-08-04 14:00] LABS: Absolute Lymphocytes (CBC) 1.1 K/uL (0.7-4.9); Absolute Monocytes 0.3 K/uL (0.1-1.3); Absolute Neutrophil 3.2 K/uL (1.8-8.0); Basophils % 0.3 % (0-1.3); Eosinophils % 0.2 % (0-4.4); Hematocrit 49.1 % (39.6-49.0); Lymphocytes % 24.3 % (15.3-44.8); MPV 8.2 fL (7.6-11.3); Monocytes % 6.6 % (3.3-12.3); RBC Red Blood Cell Count 5.26 M/uL (4.33-5.43)
[2018-08-04 14:12] LABS: Protime INR 1.07
[2018-08-04 14:50] LABS: ALT/SGPT 20 U/L (12-78); AST/SGOT 20 U/L (15-37); Albumin 5.1 g/dL (3.4-5.0); Alkaline Phosphatase 43 U/L (45-117); BUN Blood Urea Nitrogen 10 mg/dL (7-18); Bicarbonate 22 mmol/L (21-32); Bilirubin Direct 0.2 mg/dL (0-0.2); Bilirubin Total 1.4 mg/dL (0.2-1.0); Glucose Level 105 mg/dL (74-106); Potassium 3.9 mmol/L (3.5-5.1); Protein, Total 8.5 g/dL (6.4-8.2); Sodium Level 139 mmol/L (136-145)
[2018-08-04 17:19] LABS: Barbiturates NEGATIVE (NEGATIVE); Benzodiazepines NEGATIVE (NEGATIVE); Cocaine NEGATIVE (NEGATIVE); METHAMPHETAM NEGATIVE (NEGATIVE); Methadone NEGATIVE (NEGATIVE); Opiates NEGATIVE (NEGATIVE); Phencyclidine NEGATIVE (NEGATIVE); THC Cannibis POSITIVE (NEGATIVE)
[2018-08-04] MEDS ORDERED: ACETAMINOPHEN 500 MG TAB ONE (22:50)
--- NOTE | 2018-08-05 01:57 | EDPHYS ---
Physician Documentation [facility] Name: Devon Hwang Age: 32 yrs Sex: Male : 1985 Arrival Date: 08/04/2018 Time: 13:27 Bed 16 Private MD: ED Physician Jarett Leal HPI: 08/04 17:14 This 32 yrs old Male presents to ER via EMS with complaints of Overdose, gs Suicidal Ideation. 17:14 The patient presents to the emergency department after a known overdose, that was gs intentional, with a known poisoning. Context: Extent: severe ingestion. 17:37 Associated signs and symptoms: Pertinent negatives: decreased level of consciousness, gs incontinence, visual hallucinations. Severity of symptoms: At their worst the symptoms were moderate in the emergency department the symptoms are unchanged. The patient has experienced similar episodes in the past, a few times. Historical: - Allergies: 14:03 No Known Allergies; sv - Home Meds: 14:03 Trazodone Oral [Active]; sv - PMHx: 14:03 PTSD; Schizophrenia; Anxiety; Depression; sv - PSHx: 14:03 SBO repair; sv - Immunization history:: Adult Immunizations up to date. - Ebola Screening: : No symptoms or risks identified at this time. - Social history:: Smoking status: Patient uses tobacco products. ROS: 17:37 All other systems are negative. gs Exam: 17:37 Head/Face: Normocephalic, atraumatic. Eyes: Pupils equal round and reactive to light, gs extra-ocular motions intact. Lids and lashes normal. Conjunctiva and sclera are non-icteric and not injected. Cornea within normal limits. Periorbital areas with no swelling, redness, or edema. ENT: Nares patent. No nasal discharge, no septal abnormalities noted. Tympanic membranes are normal and external auditory canals are clear. Oropharynx with no redness, swelling, or masses, exudates, or evidence of obstruction, uvula midline. Mucous membranes moist. Neck: Trachea midline, no thyromegaly or masses palpated, and no cervical lymphadenopathy. Supple, full range of motion without nuchal rigidity, or vertebral point tenderness. No Meningismus. Chest/axilla: Normal chest wall appearance and motion. Nontender with no deformity. No lesions are appreciated. Cardiovascular: Regular rate and rhythm with a normal S1 and S2. No gallops, murmurs, or rubs. Normal PMI, no JVD. No pulse deficits. Respiratory: Lungs have equal breath sounds bilaterally, clear to auscultation and percussion. No rales, rhonchi or wheezes noted. No increased work of breathing, no retractions or nasal flaring. Abdomen/GI: Soft, non-tender, with normal bowel sounds. No distension or tympany. No guarding or rebound. No evidence of tenderness throughout. Back: No spinal tenderness. No costovertebral tenderness. Full range of motion. MS/ Extremity: Pulses equal, no cyanosis. Neurovascular intact. Full, normal range of motion. Neuro: Awake and alert, GCS 15, oriented to person, place, time, and situation. Cranial nerves II-XII grossly intact. Motor strength 5/5 in all extremities. Sensory grossly intact. Cerebellar exam normal. Normal gait. 17:37 Constitutional: The patient appears alert, awake. 17:37 ECG was reviewed by the Attending Physician. 17:37 Psych: Behavior/mood is depressed, Affect is calm, Oriented to person, place, time, Patient having thoughts of suicide. Judgement / Insight is impaired. Vital Signs: 13:39 BP 130 / 100; Pulse 83; Resp 20; Pulse Ox 100% ; sv 13:42 BP 133 / 87; Pulse 81; Resp 19; Pulse Ox 100% ; sv 14:00 BP 109 / 64; Pulse 82; Resp 18; Pulse Ox 100% on R/A; sv 14:01 BP 109 / 64; Pulse 82; Resp 20; Pulse Ox 100% on R/A; Weight 72.57 kg; la1 14:03 Temp 98.0; la1 15:04 BP 114 / 54; Pulse 76 MON; Resp 19; Pulse Ox 99% on R/A; sv 16:06 BP 124 / 61; Pulse 80; Resp 14; Pulse Ox 99% ; sv 16:55 BP 142 / 86; Pulse 91; Resp 17; Pulse Ox 98% ; sv 17:41 BP 124 / 66; Pulse 83; Resp 18; Temp 98.1; Pulse Ox 99% ; sv 18:30 BP 117 / 73; Pulse 82; Resp 17; Pulse Ox 99% on R/A; sv 21:41 BP 153 / 88; Pulse 118; Resp 16; Pulse Ox 97% on R/A; jb4 22:32 BP 130 / 68; Pulse 102; Resp 20; Temp 100.3(O); Pulse Ox 98% ; lt1 23:38 BP 112 / 54; Pulse 97; Resp 18 S; Temp 99.5(O); Pulse Ox 98% on R/A; ca1 23:52 Temp 99.5(O); ca1 08/05 00:18 BP 128 / 73; Pulse 94; Resp 21 S; Pulse Ox 98% on R/A; ca1 01:17 BP 115 / 52; Pulse 85; Resp 19 S; Pulse Ox 98% on R/A; ca1 01:46 BP 122 / 72; Pulse 83; Resp 18 S; Pulse Ox 97% on R/A; ca1 15:04 Sinus Rhythm sv MDM: 08/04 13:41 Patient medically screened. 17:37 Differential diagnosis: Ingestion/exposure to TRAZADONE. Data reviewed: vital signs, nurses notes. 08/04 13:41 Order name: Acetaminophen; Complete Time: 18:13 08/04 13:41 Order name: Basic Metabolic Panel; Complete Time: 18:13 08/04 13:41 Order name: CBC with Diff; Complete Time: 18:13 08/04 13:41 Order name: ETOH Level; Complete Time: 18:13 08/04 13:41 Order name: Hepatic Function; Complete Time: 18:13 08/04 13:41 Order name: PT-INR; Complete Time: 18:13 08/04 13:41 Order name: Ptt, Activated; Complete Time: 18:13 08/04 13:41 Order name: Salicylate; Complete Time: 18:13 08/04 13:41 Order name: Urine Drug Screen; Complete Time: 18:13 08/04 13:41 Order name: EKG; Complete Time: 13:43 08/04 16:12 Order name: Tylenol Level; Complete Time: 18:13 08/04 13:41 Order name: EKG - Nurse/Tech; Complete Time: 13:42 08/04 13:41 Order name: IV Saline Lock; Complete Time: 13:42 08/04 13:41 Order name: Labs collected and sent; Complete Time: 13:42 08/04 13:41 Order name: Urine Dipstick-Ancillary (obtain specimen); Complete Time: 16:56 gs EC:37 Rate is 77 beats/min. Rhythm is regular. [place] interval is normal. QRS interval is gs prolonged. QT interval is normal. T waves are Inverted. Clinical impression: NSR w/ Non-specific ST/T Changes. Interpreted by me. Administered Medications: 14:41 Drug: NS 0.9% 1000 ml Route: IV; Rate: 1 bolus; Site: right forearm; sv 15:35 Follow up: Response: No adverse reaction; IV Status: Completed infusion; IV Intake: sv 1000ml 14:53 Drug: NS 0.9% 1000 ml Route: IV; Rate: 125 ml/hr; Site: right forearm; sv 22:40 Drug: Tylenol 1000 mg Route: PO; jb4 23:52 Follow up: Temp 99.5 Oral; Response: No adverse reaction; Temperature is decreased ca1 Disposition: 08/05/18 01:56 Discharged to Home. Impression: Adjustment disorder with mixed anxiety and depressed mood. - Condition is Stable. - Discharge Instructions: Persistent Depressive Disorder. - Medication Reconciliation Form, Thank You Letter, Antibiotic Education, Prescription Opioid Use form. - Follow up: Private Physician; When: Upon discharge from the Emergency Department; Reason: If symptoms return, Recheck today's complaints, Continuance of care. - Problem is new. - Symptoms have improved. Signatures: Dispatcher [employer] EDShannan Funes RN RN Willie Gar RN RN jb4 Jarett Leal MD MD gs Wadley, Terrence, MD MD tw4 Krys Peña RN ca1 Corrections: (The following items were deleted from the chart) 08/05 02:21 01:56 08/05/2018 01:56 Discharged to Home. Impression: Adjustment disorder with mixed jb4 anxiety and depressed mood. Condition is Stable. Forms are Medication Reconciliation Form, Thank You Letter, Antibiotic Education, Prescription Opioid Use. Follow up: Private Physician; When: Upon discharge from the Emergency Department; Reason: If symptoms return, Recheck today's complaints, Continuance of care. Problem is new. Symptoms have improved. tw4
--- NOTE | 2018-08-05 01:57 | ER ---
Nurse's Notes [facility] Name: Devon Hwang Age: 32 yrs Sex: Male : 1985 Arrival Date: 08/04/2018 Time: 13:27 Bed 16 Private MD: Diagnosis: Adjustment disorder with mixed anxiety and depressed mood Presentation: 08/04 13:25 Presenting complaint: EMS states: called out for Trazadone overdose, reports "taking a sv shitload of pills." Unknown amount but there were 50 mg and 100 mg tablets. Pt reports hearing voices over the last couple of weeks. Pt states "They tell me a lot of things, to kill people and myself." BP 118/84 HR-90 100% RA BS-89. Transition of care: patient was not received from another setting of care. Onset of symptoms was August 04, 2018 at 12:30. Risk Assessment: Do you want to hurt yourself or someone else? Patient reports desire/thoughts of hurting themselves or someone else. Provider notified. Initial Sepsis Screen: Does the patient meet any 2 criteria? No. Patient's initial sepsis screen is negative. Does the patient have a suspected source of infection? No. Patient's initial sepsis screen is negative. Care prior to arrival: IV initiated. 20 GA, in the left antecubital area, Glucose check: 89. 13:25 Method Of Arrival: EMS: [facility] sv 13:25 Acuity: MORENA 2 sv Triage Assessment: 13:25 General: Appears in no apparent distress. comfortable, well developed, Behavior is sv calm, cooperative, appropriate for age. Pain: Denies pain. Neuro: Level of Consciousness is obeys commands, lethargic, Oriented to person, place, time, situation, Moves all extremities. Full function Gait is steady. Cardiovascular: Heart tones S1 S2 present. Respiratory: Airway is patent Respiratory effort is even, unlabored, Respiratory pattern is regular, symmetrical, Breath sounds are clear bilaterally. Derm: Skin is pink, warm \\T\\ dry. Musculoskeletal: Range of motion: intact in all extremities. Historical: - Allergies: 14:03 No Known Allergies; sv - Home Meds: 14:03 Trazodone Oral [Active]; sv - PMHx: 14:03 PTSD; Schizophrenia; Anxiety; Depression; sv - PSHx: 14:03 SBO repair; sv - Immunization history:: Adult Immunizations up to date. - Ebola Screening: : No symptoms or risks identified at this time. - Social history:: Smoking status: Patient uses tobacco products. Screenin:04 Abuse screen: Denies threats or abuse. Denies injuries from another. Nutritional sv screening: No deficits noted. Tuberculosis screening: No symptoms or risk factors identified. Fall Risk No fall in past 12 months (0 pts). No secondary diagnosis (0 pts). IV access (20 points). Ambulatory Aid- None/Bed Rest/Nurse Assist (0 pts). Gait- Normal/Bed Rest/Wheelchair (0 pts) Mental Status- Oriented to own ability (0 pts). Total [place] Fall Scale indicates No Risk (0-24 pts). Assessment: 13:44 Reassessment: Contacted [place] poison control, recommend monitoring for EKG changes, cable swager la1 depression, hypotension, seizures. TX with supportive care, fluids, vasopressors, if bradycardia give atropine. PRN benzos for sz, check normal tox labs. obs for for 12 to 16 hours, . 13:47 Reassessment: repeat tylenol at 1630. la1 14:41 Reassessment: Patient appears in no apparent distress at this time. No changes from sv previously documented assessment. Patient and/or family updated on plan of care and expected duration. Pain level reassessed. Patient is alert, oriented x 3, equal unlabored respirations, skin warm/dry/pink. 16:09 Reassessment: Patient appears in no apparent distress at this time. No changes from sv previously documented assessment. Patient and/or family updated on plan of care and expected duration. Pain level reassessed. 16:55 Reassessment: Patient appears in no apparent distress at this time. No changes from sv previously documented assessment. 17:41 Reassessment: Patient appears in no apparent distress at this time. No changes from sv previously documented assessment. Patient and/or family updated on plan of care and expected duration. Pain level reassessed. 18:30 Reassessment: Patient appears in no apparent distress at this time. No changes from sv previously documented assessment. Patient and/or family updated on plan of care and expected duration. Pain level reassessed. Patient is alert, oriented x 3, equal unlabored respirations, skin warm/dry/pink. 19:30 Reassessment: Patient appears in no apparent distress at this time. Patient and/or jb4 family updated on plan of care and expected duration. Pain level reassessed. Patient is alert, oriented x 3, equal unlabored respirations, skin warm/dry/pink. 20:30 Reassessment: Patient appears in no apparent distress at this time. Patient and/or jb4 family updated on plan of care and expected duration. Pain level reassessed. Pt is resting with eyes closed, no s/s of distress noted, respirations even and unlabored. 21:30 Reassessment: Patient appears in no apparent distress at this time. Patient and/or jb4 family updated on plan of care and expected duration. Pain level reassessed. Patient is alert, oriented x 3, equal unlabored respirations, skin warm/dry/pink. family is at the bedside. 22:25 Reassessment: Patient appears in no apparent distress at this time. Patient and/or jb4 family updated on plan of care and expected duration. Pain level reassessed. Patient is alert, oriented x 3, equal unlabored respirations, skin warm/dry/pink. Provider notified of increased temp and heart rate, see MAR for orders. 23:30 Reassessment: Patient appears in no apparent distress at this time. Patient and/or jb4 family updated on plan of care and expected duration. Pain level reassessed. Patient is alert, oriented x 3, equal unlabored respirations, skin warm/dry/pink. 23:33 Reassessment: Sister's number: [phone] .Name: Lexi. Sister went home requests to ca1 be called once pt is discharged or transferred to another facility. 08/05 00:26 Reassessment: Patient appears in no apparent distress at this time. Pt eyes closed with ca1 even and unlabored respirations. 01:17 Reassessment: Patient appears in no apparent distress at this time. Eyes closed. ca1 Breathing equal and unlabored. Skin pink, warm and dry. 02:12 Reassessment: Patient appears in no apparent distress at this time. Patient and/or jb4 family updated on plan of care and expected duration. Pain level reassessed. Patient is alert, oriented x 3, equal unlabored respirations, skin warm/dry/pink. Pt sister is with patient to take him home, Pt denies wanting to harm himself or others Iv's removed. security paged to bring pt's belongings back. Psych: 08/04 13:30 Subjective: Patient's mood is sad, hopeless, Delusions are denied, Hallucinations are sv auditory, Having thoughts of suicide. Plan for suicide is "taking a shitload of Trazodone". Objective: Patient is cooperative, using poor eye contact, Speech is soft, Affect is flat. Interventions: Removed personal items and placed in bag. Patient placed in hospital gown. Searched person for dangerous items. Belonging list filled out. Patient reassessed during use of restraints. Patient is physically safe. Patient's cardiac status is stable. Patient's respirations are even and unlabored. Patient has good circulation in all extremities as indicated by capillary refill < 3 seconds. Patient's ROM assessed and is intact. Patient nutrition and hydration needs will continue to be monitored and addressed. Patient hygiene and elimination needs met. Patient assessed for signs of distress. Patient remains reasonably comfortable at this time. Assisted patient in de-escalation of behavior by removing stimuli causing behavior where possible. Suicide Risk Assessment: Sad Person Scale: Sex of patient: Male: Score 1 point. Age of patient: Score 1 point if patient 15-34. Depression: Score 1 point if signs of depression are present. Previous Attempt: Score 0 point if patient has not previously attempted suicide. Substance Abuse: Score 1 point if patient abuses alcohol or drugs. Rational Thinking: Score 0 point if patient has rational thinking. Social Support: Score 1 point if social support is lacking and/or unavailable. Organized Plan: Score 1 point if patient had a plan in place. Relationship: Score 1 point if patient is , , , or for a single male Chronic Sickness: Score 1 point if patient has illness, chronic, debilitating, or severe. TOTAL POINTS: If total points are 7-10, the proposed clinical action is to hospitalize or commit. Implement suicide precautions. Safety Checks: Personal items have been removed. Door is open. No visitors are present at this time. Pt denies substance abuse Reports he has been sober but he used to drink alcohol and drugs. Commitment: Patient will be a voluntary commitment. Vital Signs: 13:39 BP 130 / 100; Pulse 83; Resp 20; Pulse Ox 100% ; sv 13:42 BP 133 / 87; Pulse 81; Resp 19; Pulse Ox 100% ; sv 14:00 BP 109 / 64; Pulse 82; Resp 18; Pulse Ox 100% on R/A; sv 14:01 BP 109 / 64; Pulse 82; Resp 20; Pulse Ox 100% on R/A; Weight 72.57 kg; la1 14:03 Temp 98.0; la1 15:04 BP 114 / 54; Pulse 76 MON; Resp 19; Pulse Ox 99% on R/A; sv 16:06 BP 124 / 61; Pulse 80; Resp 14; Pulse Ox 99% ; sv 16:55 BP 142 / 86; Pulse 91; Resp 17; Pulse Ox 98% ; sv 17:41 BP 124 / 66; Pulse 83; Resp 18; Temp 98.1; Pulse Ox 99% ; sv 18:30 BP 117 / 73; Pulse 82; Resp 17; Pulse Ox 99% on R/A; sv 21:41 BP 153 / 88; Pulse 118; Resp 16; Pulse Ox 97% on R/A; jb4 22:32 BP 130 / 68; Pulse 102; Resp 20; Temp 100.3(O); Pulse Ox 98% ; lt1 23:38 BP 112 / 54; Pulse 97; Resp 18 S; Temp 99.5(O); Pulse Ox 98% on R/A; ca1 23:52 Temp 99.5(O); ca1 08/05 00:18 BP 128 / 73; Pulse 94; Resp 21 S; Pulse Ox 98% on R/A; ca1 01:17 BP 115 / 52; Pulse 85; Resp 19 S; Pulse Ox 98% on R/A; ca1 01:46 BP 122 / 72; Pulse 83; Resp 18 S; Pulse Ox 97% on R/A; ca1 15:04 Sinus Rhythm sv ED Course: 08/04 13:27 Patient arrived in ED. bd 13:30 youth nutritional monitor on. Pulse ox on. NIBP on. sv 13:30 Safety checks: Items removed: yes. Door open/sign placed on door: yes. Family/friend ms present: no. Sitter present: Yes. Arm band placed on. Patient has correct armband on for positive identification. Placed in gown. Bed in low position. Valuables inventory done. See valuables checklist. PT's belongings sent with security, Black sweat pants, black shirt and ID. Seizure precautions initiated. 13:35 Initial lab(s) drawn, by ED staff, EKG done, by ED staff, reviewed by Jarett Leal MD. ms 13:35 Inserted saline lock: 18 gauge in right forearm, using aseptic technique. Blood sv collected. 13:38 Jarett Leal MD is Attending Physician. gs 13:45 Safety checks: Items removed: yes. Door open/sign placed on door: yes. Family/friend ms present: no. Sitter present: Yes. 13:58 Shannan Membreno RN is Primary Nurse. sv 14:00 Safety checks: Items removed: yes. Door open/sign placed on door: yes. Family/friend ms present: no. Sitter present: Yes. 14:01 Triage completed. sv 14:15 Safety checks: Items removed: yes. Door open/sign placed on door: yes. Family/friend ms present: no. Sitter present: Yes. 14:17 Warm blanket given. ms 14:30 Safety checks: Items removed: yes. Door open/sign placed on door: yes. Family/friend ms present: no. Sitter present: Yes. 14:45 Safety checks: Items removed: yes. Door open/sign placed on door: yes. Family/friend ms present: no. Sitter present: Yes. 15:00 Safety checks: Items removed: yes. Door open/sign placed on door: yes. Family/friend ms present: no. Sitter present: Yes. 15:15 Safety checks: Items removed: yes. Door open/sign placed on door: yes. Family/friend ms present: no. Sitter present: Yes. 15:30 Safety checks: Items removed: yes. Door open/sign placed on door: yes. Family/friend ms present: no. Sitter present: Yes. 15:45 Safety checks: Items removed: yes. Door open/sign placed on door: yes. Family/friend sv present: no. Sitter present: Yes. 16:00 Safety Checks: Personal items have been removed. The door is open or patient has been da2 placed in a hallway bed/chair. There are no family/friend visitors at this time Sitter present at this time. 16:15 Safety Checks: Personal items have been removed. The door is open or patient has been sv placed in a hallway bed/chair. There are no family/friend visitors at this time Sitter present at this time. 16:30 Safety Checks: Personal items have been removed. The door is open or patient has been da2 placed in a hallway bed/chair. There are no family/friend visitors at this time Sitter present at this time. 16:45 Safety Checks: Personal items have been removed. The door is open or patient has been sv placed in a hallway bed/chair. There are no family/friend visitors at this time Sitter present at this time. 17:00 Safety Checks: Personal items have been removed. The door is open or patient has been da2 placed in a hallway bed/chair. There are no family/friend visitors at this time Sitter present at this time. 17:15 Safety Checks: Personal items have been removed. The door is open or patient has been da2 placed in a hallway bed/chair. There are no family/friend visitors at this time Sitter present at this time. 17:30 Safety Checks: Personal items have been removed. The door is open or patient has been da2 placed in a hallway bed/chair. There are no family/friend visitors at this time Sitter present at this time. 17:45 Safety Checks: Personal items have been removed. The door is open or patient has been da2 placed in a hallway bed/chair. There are no family/friend visitors at this time Sitter present at this time. 18:00 Safety Checks: Personal items have been removed. The door is open or patient has been da2 placed in a hallway bed/chair. There are no family/friend visitors at this time Sitter present at this time. 18:08 faxed the chart to [facility]. 18:11 contacted [facility] to have screener come evaluate pt. bd 18:12 faxed chart to [facility], [facility], [facility], and [facility]. 18:15 Safety Checks: Personal items have been removed. The door is open or patient has been da2 placed in a hallway bed/chair. A family member and/or friend is present and encouraged to stay. Sitter present at this time. 18:30 Safety Checks: Personal items have been removed. The door is open or patient has been da2 placed in a hallway bed/chair. A family member and/or friend is present and encouraged to stay. Sitter present at this time. 18:45 Safety Checks: Personal items have been removed. The door is open or patient has been da2 placed in a hallway bed/chair. A family member and/or friend is present and encouraged to stay. Sitter present at this time. 18:59 Safety Checks: Personal items have been removed. The door is open or patient has been da2 placed in a hallway bed/chair. A family member and/or friend is present and encouraged to stay. Sitter present at this time. 19:22 Safety checks: Items removed: yes. Door open/sign placed on door: yes. Family/friend lt1 present: yes. Sitter present: Yes. 19:30 Safety checks: Items removed: yes. Door open/sign placed on door: yes. Family/friend lt1 present: yes. Sitter present: Yes. 19:45 Safety checks: Items removed: yes. Door open/sign placed on door: yes. Family/friend lt1 present: yes. Sitter present: Yes. 20:00 Safety checks: Items removed: yes. Door open/sign placed on door: yes. Family/friend lt1 present: yes. Sitter present: Yes. 20:15 Safety checks: Items removed: yes. Door open/sign placed on door: yes. Family/friend lt1 present: yes. Sitter present: Yes. 20:30 Safety checks: Items removed: yes. Door open/sign placed on door: yes. Family/friend lt1 present: no. Sitter present: Yes. 20:45 Safety checks: Items removed: yes. Door open/sign placed on door: yes. Family/friend lt1 present: no. Sitter present: Yes. 21:00 Safety checks: Items removed: yes. Door open/sign placed on door: yes. Family/friend lt1 present: no. Sitter present: Yes. 21:15 Safety checks: Items removed: yes. Door open/sign placed on door: yes. Family/friend lt1 present: no. Sitter present: Yes. 21:30 Safety checks: Items removed: yes. Door open/sign placed on door: yes. Family/friend lt1 present: no. Sitter present: Yes. 21:45 Safety checks: Items removed: yes. Door open/sign placed on door: yes. Family/friend lt1 present: yes. Sitter present: Yes. 22:00 Safety checks: Items removed: yes. Door open/sign placed on door: yes. Family/friend lt1 present: yes. Sitter present: Yes. 22:15 Safety checks: Items removed: yes. Door open/sign placed on door: yes. Family/friend lt1 present: yes. Sitter present: Yes. 22:30 Safety checks: Items removed: yes. Door open/sign placed on door: yes. Family/friend lt1 present: yes. Sitter present: Yes. 22:45 Safety checks: Items removed: yes. Door open/sign placed on door: yes. Family/friend lt1 present: yes. Sitter present: Yes. 23:00 Safety Checks: Personal items have been removed. The door is open or patient has been ca1 placed in a hallway bed/chair. A family member and/or friend is present and encouraged to stay. Sitter present at this time. 23:15 Safety Checks: Personal items have been removed. The door is open or patient has been ca1 placed in a hallway bed/chair. A family member and/or friend is present and encouraged to stay. Sitter present at this time. 23:30 Safety Checks: Personal items have been removed. The door is open or patient has been ca1 placed in a hallway bed/chair. There are no family/friend visitors at this time Sitter present at this time. 23:45 Safety Checks: Personal items have been removed. The door is open or patient has been ca1 placed in a hallway bed/chair. There are no family/friend visitors at this time Sitter present at this time. 08/05 00:00 Safety Checks: Personal items have been removed. The door is open or patient has been ca1 placed in a hallway bed/chair. There are no family/friend visitors at this time Sitter present at this time. 00:15 Safety Checks: Personal items have been removed. The door is open or patient has been ca1 placed in a hallway bed/chair. There are no family/friend visitors at this time Sitter present at this time. 00:30 Safety Checks: Personal items have been removed. The door is open or patient has been ca1 placed in a hallway bed/chair. There are no family/friend visitors at this time Sitter present at this time. 00:45 Safety Checks: Personal items have been removed. The door is open or patient has been ca1 placed in a hallway bed/chair. There are no family/friend visitors at this time Sitter present at this time. 01:00 Safety Checks: Personal items have been removed. The door is open or patient has been ca1 placed in a hallway bed/chair. There are no family/friend visitors at this time Sitter present at this time. 01:15 Safety Checks: Personal items have been removed. The door is open or patient has been ca1 placed in a hallway bed/chair. There are no family/friend visitors at this time Sitter present at this time. 01:30 Safety Checks: Personal items have been removed. The door is open or patient has been ca1 placed in a hallway bed/chair. There are no family/friend visitors at this time Sitter present at this time. 01:45 Safety Checks: Personal items have been removed. The door is open or patient has been ca1 placed in a hallway bed/chair. There are no family/friend visitors at this time Sitter present at this time. 02:00 Safety Checks: Personal items have been removed. The door is open or patient has been jb4 placed in a hallway bed/chair. A family member and/or friend is present and encouraged to stay. Sitter present at this time. 02:12 No provider procedures requiring assistance completed. IV discontinued, intact, jb4 bleeding controlled. Administered Medications: 08/04 14:41 Drug: NS 0.9% 1000 ml Route: IV; Rate: 1 bolus; Site: right forearm; sv 15:35 Follow up: Response: No adverse reaction; IV Status: Completed infusion; IV Intake: sv 1000ml 14:53 Drug: NS 0.9% 1000 ml Route: IV; Rate: 125 ml/hr; Site: right forearm; sv 22:40 Drug: Tylenol 1000 mg Route: PO; jb4 23:52 Follow up: Temp 99.5 Oral; Response: No adverse reaction; Temperature is decreased ca1 Intake: 15:35 IV: 1000ml; Total: 1000ml. sv Output: 16:30 Urine: 600ml (Voided); Total: 600ml. sv Outcome: 08/05 01:56 Discharge ordered by . tw4 02:20 Discharged to home with family. jb4 02:20 Condition: stable 02:20 Discharge instructions given to patient, family, Instructed on discharge instructions, follow up and referral plans. Demonstrated understanding of instructions, follow-up care. 02:21 Patient left the ED. jb4 Signatures: Zofia Wilson Stephanie, RN RN sv Clarissa Dangelo ms Mahnaz, ABDIFATAH Sam RN la1 Willie Gar RN RN jb4 Jarett Leal MD MD gs Wadley, Terrence, MD MD tw4 Krys Peña RN RN ca1 Nowak, Hannah lt1 Juan Peña Corrections: (The following items were deleted from the chart) 08/04 14:02 13:45 Inserted saline lock: 18 gauge in right forearm, using aseptic technique. Blood sv collected. ms 14:19 13:45 Safety checks: Items removed: yes. Door open/sign placed on door: yes. ms Family/friend present: no. Sitter present: Yes. ms 14:19 13:45 Patient has correct armband on for positive identification. Placed in gown. Bed ms in low position. Valuables inventory done. See valuables checklist. PT's belongings sent with security, Black sweat pants, black shirt and ID. Seizure precautions initiated. ms 14:19 13:35 Arm band placed on sv ms 17:23 16:14 Safety Checks: Personal items have been removed. The door is open or patient has sv been placed in a hallway bed/chair. There are no family/friend visitors at this time Sitter present at this time. da2 17:23 16:44 Safety Checks: Personal items have been removed. The door is open or patient has sv been placed in a hallway bed/chair. There are no family/friend visitors at this time Sitter present at this time. da2 17:23 15:40 Safety checks: Items removed: yes. Door open/sign placed on door: yes. sv Family/friend present: no. Sitter present: Yes. ms 23:33 22:30 Reassessment: Patient appears in no apparent distress at this time. Patient jb4 and/or family updated on plan of care and expected duration. Pain level reassessed. Patient is alert, oriented x 3, equal unlabored respirations, skin warm/dry/pink. jb4 08/05 00:19 00:00 Safety Checks: Personal items have been removed. The door is open or patient has ca1 been placed in a hallway bed/chair. There are no family/friend visitors at this time ca1
--- NOTE | 2018-08-05 12:54 | EKG ---
Test Date: 2018-08-04 Test Time: 13:38:13 [place] [facility]: MEASUREMENT RESULTS: Intervals: Rate: 77 CO: 116 QRSD: 102 QT: 410 QTc: 463 [place]: P: 60 CO: 116 QRS: 46 T: 45 INTERPRETIVE STATEMENTS: Normal sinus rhythm T wave abnormality, consider lateral ischemia Prolonged QT Abnormal ECG Compared to ECG 11/28/2017 15:17:12 Possible ischemia now present Prolonged QT interval now present Sinus tachycardia no longer present T-wave abnormality still present Electronically Signed On 08-05-18 12:52:02 CDT by David Loomis
== END 2018-08-05 02:21 | disposition home or self-care (01) ==
LOC: ER 13:26
DX: F43.23 Adjustment disorder with mixed anxiety and depressed mood (principal); R45.851 Suicidal ideations; F43.10 Post-traumatic stress disorder, unspecified; F20.9 Schizophrenia, unspecified; F41.9 Anxiety disorder, unspecified; F32.9 Major depressive disorder, single episode, unspecified
CPT/HCPCS: 36415; 80048; 80076; 80307; 80320; 80329; 85025; 85610; 85730; 93005; 96360; 99285

== ENCOUNTER 2018-11-22 12:20 | Emergency (ER) | payer SELFPAY ==
--- OUTSIDE RECORDS SUMMARY | 2018-11-22 12:23 | XMS REPORT | Clinical Summary ---
:1985 Author Organization [facility] Address [address] [place] [address] Care Team Providers Name Role Phone Asked, No Pcp Primary Care Provider Unavailable Allergies No Known Allergies Medications Medication Sig Dispensed Refills Start Date End Date Status QUEtiapine Take 400 mg 0 Active (SEROquel) 200 by mouth MG nightly. tabletIndication s: Depression Treatment Adjunct PARoxetine Take 30 mg by 0 Discontinued (PAXIL) 30 MG mouth every 8 (Stop Taking at tablet morning. Discharge) gabapentin Take 2 180 capsule 0 11/26/2017 (NEURONTIN) 300 capsules (600 8 mg mg total) by capsuleIndicatio mouth 3 ns: alcoholism (three) times a day for [address] 1 patch 30 patch 0 11/26/2017 (NICODERM CQ) 21 on the skin 8 mg/24 daily as hrIndications: needed (prn Smoking only) for up Cessation to 30 days. Active Problems Problem Noted [...] Weber MD 11/26/2017 11/23/2017 Intake Access N/A after 11/21/2017 Family History Medical History Relation Name Comments [...] oz/Week Comments Yes 5 Cans of beer 5.0 drinks daily Sex Assigned at Date Recorded Not on file Job Start Date Occupation Industry Not on file Not on file Not on file Travel History Travel Start Travel End No recent travel history available. Last Filed Vital Signs Vital Sign Reading Time Taken Comments Blood Pressure 138/78 11/26/2017 12:37 PM CDT [...] procedure are in the results section. after 11/21/2017 Results Estimated GFR (11/24/2017 10:11 PM CDT) GFR Non Af Amer >90 mL/min/1.73 [facility] DEPARTMENT OF m2 PATHOLOGY AND GENOMIC MEDICINE GFR Af Amer >90 mL/min/1.73 [facility] DEPARTMENT OF Comment: m2 PATHOLOGY AND Chronic [...] specimen Performing Organization Address City/State/Zipcode Phone Number [facility] DEPARTMENT OF PATHOLOGY AND [address] [place] [address] GGT (11/24/2017 10:11 PM CDT) Pathologist [facility] GGT 41 0 - 59 U/L [facility] DEPARTMENT OF PATHOLOGY AND GENOMIC MEDICINE Specimen Plasma specimen Performing Organization Address City/State/Zipcode Phone Number [facility] DEPARTMENT OF PATHOLOGY AND [address] [place] [phone] [facility] Comprehensive metabolic panel (11/24/2017 10:11 PM CDT) Pathologist [facility] Sodium 140 135 - 148 [facility] DEPARTMENT OF mEq/L PATHOLOGY AND GENOMIC MEDICINE Potassium 4.3 3.5 - 5.0 [facility] DEPARTMENT OF mEq/L PATHOLOGY AND GENOMIC MEDICINE Chloride 100 98 - 112 mEq/L [facility] DEPARTMENT OF PATHOLOGY AND GENOMIC MEDICINE CO2 27 24 - 31 mEq/L [facility] DEPARTMENT OF PATHOLOGY AND GENOMIC MEDICINE Anion gap 13@ANIO 7 - 15 mEq/L [facility] DEPARTMENT OF PATHOLOGY AND GENOMIC MEDICINE BUN 13 6 - 20 mg/dL [facility] DEPARTMENT OF PATHOLOGY AND GENOMIC MEDICINE Creatinine 0.7 0.7 - 1.2 [facility] DEPARTMENT OF mg/dL PATHOLOGY AND GENOMIC MEDICINE Glucose 100 (H) 65 - 99 mg/dL [facility] DEPARTMENT OF PATHOLOGY AND GENOMIC MEDICINE Calcium 9.9 8.3 - 10.2 [facility] DEPARTMENT OF mg/dL PATHOLOGY AND GENOMIC MEDICINE Protein 7.5 6.3 - 8.3 g/dL [facility] DEPARTMENT OF Comment: PATHOLOGY AND 4.6-7.0 g/dL GENOMIC MEDICINE 1 week 4.4-7.6 g/dL 7 months-1year5.1-7.3 g/dL 1-2 years5.6-7.5 g/dL >3 years6.0-8.0 g/dL 18-150 6.3-8.3 g/dL Albumin 3.8 3.5 - 5.0 g/dL [facility] DEPARTMENT OF PATHOLOGY AND GENOMIC MEDICINE A/G ratio 1.0 0.7 - 3.8 [facility] DEPARTMENT OF PATHOLOGY AND GENOMIC MEDICINE Alkaline phosphatase 56 40 - 129 U/L [facility] DEPARTMENT OF PATHOLOGY AND GENOMIC MEDICINE AST 107 (H) 10 - 50 U/L [facility] DEPARTMENT OF PATHOLOGY AND GENOMIC MEDICINE ALT 68 (H) 5 - 50 U/L [facility] DEPARTMENT OF PATHOLOGY AND GENOMIC MEDICINE Total bilirubin 0.4 0.0 - 1.2 [facility] DEPARTMENT OF mg/dL PATHOLOGY AND GENOMIC MEDICINE Specimen Plasma specimen Performing Organization Address City/[facility] Phone Number [facility] DEPARTMENT OF PATHOLOGY AND [address] [place] [address] MEDICINE Prothrombin time with INR (11/24/2017 9:41 PM CDT) Prothrombin time 12.8 12.0 - 15.0 [facility] DEPARTMENT OF [employer] [facility] PATHOLOGY AND GENOMIC MEDICINE INR 1.0 [facility] DEPARTMENT OF Comment: PATHOLOGY AND The International Normalized Ratio (INR) is a therapeutic GENOMIC MEDICINE monitoring tool for patients who are stable on oral anticoagulant therapy. An INR of 2.0-3.0 is suggested for deep vein thrombosis/pulmonary embolism. Specimen Blood Performing Organization Address City/[facility] Phone Number [facility] DEPARTMENT OF PATHOLOGY AND [address] [place] [address] Navigating Cancer [facility] CBC with platelet and differential (11/24/2017 9:41 PM CDT) WBC 5.52 4.50 - 11.00 [facility] DEPARTMENT OF k/uL PATHOLOGY AND GENOMIC MEDICINE RBC 4.43 4.40 - 6.00 [facility] DEPARTMENT OF m/uL PATHOLOGY AND GENOMIC MEDICINE HGB 14.1 14.0 - 18.0 [facility] DEPARTMENT OF g/dL PATHOLOGY AND GENOMIC MEDICINE HCT 41.7 41.0 - 51.0 % [facility] DEPARTMENT OF PATHOLOGY AND GENOMIC MEDICINE MCV 94.1 82.0 - 100.0 [facility] DEPARTMENT OF ID PATHOLOGY AND GENOMIC MEDICINE MCH 31.8 27.0 - 34.0 [facility] DEPARTMENT OF pg PATHOLOGY AND GENOMIC MEDICINE MCHC 33.8 31.0 - 37.0 [facility] DEPARTMENT OF g/dL PATHOLOGY AND GENOMIC MEDICINE RDW - SD 40.1 37.0 - 55.0 [facility] DEPARTMENT OF fL PATHOLOGY AND GENOMIC MEDICINE MPV 9.4 8.8 - 13.2 fL [facility] DEPARTMENT OF PATHOLOGY AND GENOMIC MEDICINE Platelet count 157 150 - 400 [facility] DEPARTMENT OF k/uL PATHOLOGY AND GENOMIC MEDICINE Nucleated RBC 0.00 /100 WBC [facility] DEPARTMENT OF PATHOLOGY AND GENOMIC MEDICINE Neutrophils 72.4 (H) 39.0 - 69.0 % [facility] DEPARTMENT OF PATHOLOGY AND GENOMIC MEDICINE Lymphocytes 17.9 (L) 25.0 - 45.0 % [facility] DEPARTMENT OF PATHOLOGY AND GENOMIC MEDICINE Monocytes 7.8 0.0 - 10.0 % [facility] DEPARTMENT OF PATHOLOGY AND GENOMIC MEDICINE Eosinophils 1.1 0.0 - 5.0 % [facility] DEPARTMENT OF PATHOLOGY AND GENOMIC MEDICINE Basophils 0.4 0.0 - 1.0 % [facility] DEPARTMENT OF PATHOLOGY AND GENOMIC MEDICINE Immature granulocytes 0.4Comment: 0.0 - 1.0 % [facility] DEPARTMENT OF "Immature PATHOLOGY AND granulocytes" GENOMIC MEDICINE (promyelocytes , myelocytes, metamyelocytes ) Specimen Blood Performing Organization Address City/[facility]/Zipcode Phone Number [facility] DEPARTMENT OF PATHOLOGY AND [address] [place] [address] [facility] MEDICINE ECG 12 lead (11/23/2017 9:57 AM CDT) Ventricular rate 79 HM MUSE Atrial rate 79 [facility] MUSE AZ interval 126 [facility] MUSE QRSD interval 94 HM MUSE QT interval 404 HM MUSE QTC interval 463 [facility] MUSE P axis 1 21 [facility] MUSE QRS axis 1 29 [facility] MUSE T wave axis 38 [facility] MUSE EKG impression Normal sinus [facility] MUSE rhythm-Normal ECG-No previous ECGs available-Electronicall y Signed By Suzanne Ashley MD ([id number]) on 11/23/2017 7:18:39 PM Specimen Performing Organization Address City/[facility]/Zipcode Phone Number [facility] [address] [place] [address] Lipid panel (11/23/2017 4:52 AM CDT) Cholesterol 136 <200 mg/dL [facility] DEPARTMENT OF PATHOLOGY AND GENOMIC MEDICINE Triglycerides 127 <150 mg/dL [facility] DEPARTMENT OF PATHOLOGY AND GENOMIC MEDICINE HDL cholesterol 65 >40 mg/dL [facility] DEPARTMENT OF PATHOLOGY AND GENOMIC MEDICINE LDL cholesterol 63Comment: Result <100 mg/dL [facility] DEPARTMENT obtained by direct OF PATHOLOGY AND LDL measurement GENOMIC [facility] Lipid panel SeeBelow [facility] DEPARTMENT interpretation Comment: OF PATHOLOGY AND Total Cholesterol (mg/dL) GENOMIC MEDICINE <200 Desirable [id number]-xzdi >=240High Triglycerides (mg/dL) <150 Normal 136-659Ujgbusrdvw-qdgh 200-499High >=500Very high HDL Cholesterol (mg/dL) <40Low (male) <40Low (female) LDL Cholesterol (mg/dL) <100 Optimal 100-129Near or above optimal [id number]-hlij 160-189High >=190Very high Risk Catergories that modify [...] specimen Performing Organization Address City/State/Zipcode Phone Number [facility] DEPARTMENT OF PATHOLOGY AND [address] [place] [phone] [facility] Hemoglobin A1c (11/23/2017 4:35 AM CDT) Hemoglobin A1C 5.2 4.0 - 5.6 % [facility] DEPARTMENT OF Comment: PATHOLOGY AND HbA1c cutoffs [...] Blood Performing Organization Address City/State/Zipcode Phone Number [facility] DEPARTMENT OF PATHOLOGY AND [address] [place] [address] Navigating Cancer MEDICINE after 11/21/2017 Insurance Payer Benefit Plan / Subscriber ID Effective Phone Address Type Group Dates PENDING PENDING xxxxxxxxx 2017-Daria FINLEY Medicaid [place] [id number] [place] C[place] [phone] Advance Directives For more information, please contact: [phone] Type Date Recorded Patient Superintendent Greens Explanation Advance Directives, Living Will and Medical Power of Whipped Topping Supervisor Code Status Date Activated Date Inactivated Comments Full Code 11/23/2017 5:28 AM 11/26/2017 5:48 PM Code Status decision reached by: Patient
--- NOTE | 2018-11-22 14:08 | ER ---
Nurse's Notes [facility] Name: Devon Hwang Age: 33 yrs Sex: Male : 1985 Arrival Date: 11/22/2018 Time: 12:23 Bed 13 Private MD: Diagnosis: Acute pain due to trauma;Fall on same level, unspecified Presentation: 11/22 12:23 Presenting complaint: EMS states: pt was at his sisters house, she didn't want him tw2 there, called PD, he was laying on the bed refusing to leave, PD said he was going to go to longterm, then pt c/o back pain, states he couldn't walk, sister reports he tripped over laundry basket and landed in the bed and he just didn't want to leave, vs stable, 20g Right AC, hx: PTSD, schizo. Transition of care: patient was not received from another setting of care. Onset of symptoms was November 22, 2018. Risk Assessment: Do you want to hurt yourself or someone else? Patient reports no desire to harm self or others. Initial Sepsis Screen: Does the patient meet any 2 criteria? No. Patient's initial sepsis screen is negative. Does the patient have a suspected source of infection? No. Patient's initial sepsis screen is negative. Care prior to arrival: Placed on backboard. IV initiated. 20 GA, in the right antecubital area. 12:23 Method Of Arrival: EMS: [facility] tw2 12:23 Acuity: MORENA 4 tw2 Triage Assessment: 12:27 General: Appears in no apparent distress. unkempt, Behavior is calm, appropriate for tw2 age. Pain: Complains of pain in left low back and right low back. Musculoskeletal: Circulation, motion, and sensation intact. Historical: - Allergies: 12:27 No Known Allergies; tw2 - Home Meds: 12:27 Ativan (currently out) [Active]; Trazodone Oral [Active]; tw2 - PMHx: 12:27 Schizophrenia; PTSD; Depression; Anxiety; tw2 - PSHx: 12:27 SBO repair; tw2 - Immunization history:: Adult Immunizations. - Social history:: Smoking status: . - Ebola Screening: : Patient denies travel to an Ebola-affected area in the 21 days before illness onset. Screenin:27 Abuse screen: Denies injuries from another. Nutritional screening: No deficits noted. tw2 Tuberculosis screening: No symptoms or risk factors identified. Fall Risk None identified. Assessment: 13:00 General: Appears in no apparent distress. comfortable, slender, Behavior is calm, ph cooperative, appropriate for age. Pain: Complains of pain in lumbar area. Neuro: Level of Consciousness is awake, alert, obeys commands, Oriented to person, place, time, situation. Cardiovascular: Capillary refill < 3 seconds in bilateral fingers Patient's skin is warm and dry. Respiratory: Airway is patent Trachea midline Respiratory effort is even, unlabored, Respiratory pattern is regular, symmetrical. Derm: Skin is intact, is healthy with good turgor, Skin is pink, warm \T\ dry. Musculoskeletal: Circulation, motion, and sensation intact. Range of motion: intact in all extremities, Swelling absent. 14:31 Reassessment: Patient appears in no apparent distress at this time. Patient and/or ph family updated on plan of care and expected duration. Pain level reassessed. Patient is alert, oriented x 3, equal unlabored respirations, skin warm/dry/pink. Vital Signs: 12:24 BP 138 / 79; Pulse 80; Resp 16; Temp 98.0(TE); Pulse Ox 100% ; Weight 71.21 kg; Height mh5 5 ft. 7 in. (170.18 cm); Pain 7/10; 13:46 BP 124 / 78; Pulse 78; Resp 16; Temp 98.1(TE); Pulse Ox 100% on R/A; 5 12:24 Body Mass Index 24.59 (71.21 kg, 170.18 cm) [facility] ED Course: 12:23 Patient arrived in ED. tw2 12:26 Triage completed. tw2 12:26 Maria Esther Abdi [facility]-C [facility] snw 12:26 Sachin Rodas MD is Attending Physician. snw 12:26 Arm band placed on. tw2 12:26 Patient has correct armband on for positive identification. Bed in low position. Call [facility] light in reach. Warm blanket given. Pulse ox on. NIBP on. 12:26 Maintain EMS IV. Dressing intact. Site clean \T\ dry. [facility] 13:32 XRAY Thoracic Spine (Ap/lat) In Process Unspecified. EDMS 14:06 Alondra Serna, RN is Primary Nurse. ph 14:29 No provider procedures requiring assistance completed. IV discontinued, intact, ph bleeding controlled, No redness/swelling at site. Pressure dressing applied. Administered Medications: 14: Drug: Tylenol 1000 mg Route: PO; ph 14:29 Follow up: Response: No adverse reaction; Medication administered at discharge. ph Outcome: 14: Discharge ordered by . david 14: Discharged to home ambulatory. ph 14:31 Condition: good 14:31 Discharge instructions given to patient, Instructed on discharge instructions, follow up and referral plans. Demonstrated understanding of instructions, follow-up care. 14:31 Patient left the ED. ph Signatures: Dispatcher [employer] EDNH Maria Esther Abdi, HELPER [employer]EL FABRICATION-C [employer] F[employer]ICATION-Csnw Alondra Serna, RN RN Laura Scruggs RN RN [facility] [place] [address]
--- NOTE | 2018-11-22 14:09 | EDPHYS ---
Physician Documentation [facility] Name: Devon Hwang Age: 33 yrs Sex: Male : 1985 Arrival Date: 11/22/2018 Time: 12:23 Bed 13 Private MD: ED Physician Sachin Rodas HPI: 11/22 12:56 This 33 yrs old Male presents to ER via EMS with complaints of Back Pain. snw 12:56 The patient presents with pain that is acute. The symptoms are located in the lumbar snw area. Onset: The symptoms/episode began/occurred suddenly, just prior to arrival. The pain does not radiate. Associated signs and symptoms: The patient has no apparent associated signs or symptoms. The problem was sustained pt states he tripped and fell sideways onto a mattress while being evicted. Severity of symptoms: At their worst the symptoms were mild. It is unknown whether or not the patient has had similar symptoms in the past. It is unknown whether or not the patient has recently seen a physician. Historical: - Allergies: 12:27 No Known Allergies; tw2 - Home Meds: 12:27 Ativan (currently out) [Active]; Trazodone Oral [Active]; tw2 - PMHx: 12:27 Schizophrenia; PTSD; Depression; Anxiety; tw2 - PSHx: 12:27 SBO repair; tw2 - Immunization history:: Adult Immunizations. - Social history:: Smoking status: . - Ebola Screening: : Patient denies travel to an Ebola-affected area in the 21 days before illness onset. ROS: 12:55 Constitutional: Negative for fever, chills, and weight loss, Eyes: Negative for injury, snw pain, redness, and discharge, ENT: Negative for injury, pain, and discharge, Neck: Negative for injury, pain, and swelling, Cardiovascular: Negative for chest pain, palpitations, and edema, Respiratory: Negative for shortness of breath, cough, wheezing, and pleuritic chest pain, Abdomen/GI: Negative for abdominal pain, nausea, vomiting, diarrhea, and constipation, : Negative for injury, bleeding, discharge, and swelling, MS/Extremity: Negative for injury and deformity, Skin: Negative for injury, rash, and discoloration, Neuro: Negative for headache, weakness, numbness, tingling, and seizure. 12:55 Back: Positive for pain at rest, pain with movement, of the lumbar area. Exam: 12:55 Constitutional: This is a well developed, well nourished patient who is awake, alert, snw and in no acute distress. Head/Face: Normocephalic, atraumatic. Eyes: Pupils equal round and reactive to light, extra-ocular motions intact. Lids and lashes normal. Conjunctiva and sclera are non-icteric and not injected. Cornea within normal limits. Periorbital areas with no swelling, redness, or edema. ENT: Nares patent. No nasal discharge, no septal abnormalities noted. Tympanic membranes are normal and external auditory canals are clear. Oropharynx with no redness, swelling, or masses, exudates, or evidence of obstruction, uvula midline. Mucous membranes moist. Neck: Trachea midline, no thyromegaly or masses palpated, and no cervical lymphadenopathy. Supple, full range of motion without nuchal rigidity, or vertebral point tenderness. No Meningismus. Chest/axilla: Normal chest wall appearance and motion. Nontender with no deformity. No lesions are appreciated. Cardiovascular: Regular rate and rhythm with a normal S1 and S2. No gallops, murmurs, or rubs. Normal PMI, no JVD. No pulse deficits. Respiratory: Lungs have equal breath sounds bilaterally, clear to auscultation and percussion. No rales, rhonchi or wheezes noted. No increased work of breathing, no retractions or nasal flaring. Abdomen/GI: Soft, non-tender, with normal bowel sounds. No distension or tympany. No guarding or rebound. No evidence of tenderness throughout. Skin: Warm, dry with normal turgor. Normal color with no rashes, no lesions, and no evidence of cellulitis. MS/ Extremity: Pulses equal, no cyanosis. Neurovascular intact. Full, normal range of motion. Neuro: Awake and alert, GCS 15, oriented to person, place, time, and situation. Cranial nerves II-XII grossly intact. Motor strength 5/5 in all extremities. Sensory grossly intact. Cerebellar exam normal. Normal gait. Psych: Awake, alert, with orientation to person, place and time. Behavior, mood, and affect are within normal limits. 12:55 Back: pain, that is moderate, of the lumbar area, ROM is normal, normal spinal alignment noted, muscle spasm, is not present. Vital Signs: 12:24 BP 138 / 79; Pulse 80; Resp 16; Temp 98.0(TE); Pulse Ox 100% ; Weight 71.21 kg; Height mh5 5 ft. 7 in. (170.18 cm); Pain 7/10; 13:46 BP 124 / 78; Pulse 78; Resp 16; Temp 98.1(TE); Pulse Ox 100% on R/A; mh5 12:24 Body Mass Index 24.59 (71.21 kg, 170.18 cm) 5 MDM: 12:28 Patient medically screened. charleen 17:20 Data reviewed: vital signs, nurses notes. Data interpreted: Pulse oximetry: on room air snw is 100 %. Interpretation: normal. Counseling: I had a detailed discussion with the patient and/or guardian regarding: the historical points, exam findings, and any diagnostic results supporting the discharge/admit diagnosis, lab results, radiology results, the need for outpatient follow up, to return to the emergency department if symptoms worsen or persist or if there are any questions or concerns that arise at home. Special discussion: Based on the history and exam findings, there is no indication for further emergent testing or inpatient evaluation. I discussed with the patient/guardian the need to see the primary care provider for further evaluation of the symptoms. I discussed with the patient/guardian the need to see the psychiatrist for further evaluation of the symptoms. 11/22 12:50 Order name: XRAY Thoracic Spine (Ap/lat) snw Administered Medications: 14:29 Drug: Tylenol 1000 mg Route: PO; ph 14:29 Follow up: Response: No adverse reaction; Medication administered at discharge. ph Disposition: 15:53 Co-signature as Attending Physician, Sachin Rodas MD I agree with the assessment and charleen plan of care. Disposition: 11/22/18 14:07 Discharged to Home. Impression: Acute pain due to trauma, Fall on same level, unspecified. - Condition is Stable. - Discharge Instructions: Fall Prevention in the Home, Cryotherapy, Heat Therapy. - Medication Reconciliation Form, Thank You Letter, Antibiotic Education, Prescription Opioid Use form. - Follow up: Private Physician; When: 2 - 3 days; Reason: Recheck today's complaints, Continuance of care, Re-evaluation by your physician. Follow up: Emergency Department; When: As needed; Reason: Worsening of condition. Signatures: Dispatcher [employer] EDMS Sachin Rodas, Maria Esther Boston MD, cha, FABRIC COATING SUPERVISOR-C FABRIC COATING SUPERVISOR-Antonyw Alondra Serna, RN RN Laura Barnett RN RN tw2 Corrections: (The following items were deleted from the chart) 14:31 14:07 11/22/2018 14:07 Discharged to Home. Impression: Acute pain due to trauma; Fall ph on same level, unspecified. Condition is Stable. Forms are Medication Reconciliation Form, Thank You Letter, Antibiotic Education, Prescription Opioid Use. Follow up: Private Physician; When: 2 - 3 days; Reason: Recheck today's complaints, Continuance of care, Re-evaluation by your physician. Follow up: Emergency Department; When: As needed; Reason: Worsening of condition. snw
[2018-11-22] MEDS ORDERED: ACETAMINOPHEN 500 MG TAB ONE (14:26)
--- NOTE | 2018-11-22 14:26 | RAD REPORT ---
EXAM DESCRIPTION: RAD - Thoracic Spine Ap/Lat - 11/22/2018 1:24 pm CLINICAL HISTORY: Trip and fall, back pain COMPARISON: None. FINDINGS: AP & lateral views of the thoracic spine were obtained. Thoracic bodies are normal in heig ht and alignment. There are no acute or destructive bony processes seen. No paraspinal masses are ellis ntified. No disc space narrowing. IMPRESSION: Negative thoracic spine examination.
== END 2018-11-22 14:31 | disposition home or self-care (01) ==
LOC: ER 12:20
DX: M54.5 Low back pain (principal); W18.30XD Fall on same level, unspecified, subsequent encounter; F41.8 Other specified anxiety disorders
CPT/HCPCS: 72070; 99284

== ENCOUNTER 2020-05-30 10:30 | Emergency (ER) | payer OTHER ==
[2020-05-30 11:14] LABS: Absolute Lymphocytes (CBC) 0.8 K/uL (0.7-4.9); Basophils % 0.6 % (0-1.3); Hematocrit 45.5 % (39.6-49.0); Lymphocytes % 20.9 % (15.3-44.8); MPV 7.8 fL (7.6-11.3); RBC Red Blood Cell Count 4.78 M/uL (4.33-5.43)
[2020-05-30 11:18] LABS: Protime INR 0.96
[2020-05-30 11:47] LABS: ALT/SGPT 17 U/L (12-78); AST/SGOT 12 U/L (15-37); Albumin 4.1 g/dL (3.4-5.0); Alkaline Phosphatase 51 U/L (45-117); BUN Blood Urea Nitrogen 10 mg/dL (7-18); Barbiturates NEGATIVE (NEGATIVE); Benzodiazepines NEGATIVE (NEGATIVE); Bicarbonate 26 mmol/L (21-32); Bilirubin Direct < 0.1 mg/dL (0-0.2); Bilirubin Total 0.4 mg/dL (0.2-1.0); Cocaine NEGATIVE (NEGATIVE); Glucose Level 105 mg/dL (74-106); METHAMPHETAM NEGATIVE (NEGATIVE); Methadone NEGATIVE (NEGATIVE); Opiates NEGATIVE (NEGATIVE); Phencyclidine NEGATIVE (NEGATIVE); Potassium 4.4 mmol/L (3.5-5.1); Protein, Total 7.6 g/dL (6.4-8.2); Sodium Level 138 mmol/L (136-145); THC Cannibis POSITIVE (NEGATIVE)
[2020-05-30] MEDS ORDERED: LORazepam 2 MG/ML VIAL ONE (11:55)
--- NOTE | 2020-05-30 12:03 | ER ---
Nurse's Notes [facility] Name: Devon Hwang Age: 34 yrs Sex: Male : 1985 Arrival Date: 05/30/2020 Time: 10:37 Bed 7 Private MD: Diagnosis: Major depressive disorder, recurrent;Anxiety disorder, unspecified Presentation: 05/30 10:37 Chief complaint: called out for possible domestic incident. Officers state that patient dm5 said he wants to . Pt denies SI or HI at this time. offered a blanket, food and soda. Pt appears to be compliant at this time. Coronavirus screen: At this time, the client does not indicate any symptoms associated with coronavirus-19. Ebola Screen: Patient negative for fever greater than or equal to 101.5 degrees Fahrenheit, and additional compatible Ebola Virus Disease symptoms Patient denies exposure to infectious person. Patient denies travel to an Ebola-affected area in the 21 days before illness onset. No symptoms or risks identified at this time. Initial Sepsis Screen: Does the patient meet any 2 criteria? No. Patient's initial sepsis screen is negative. Does the patient have a suspected source of infection? No. Patient's initial sepsis screen is negative. Risk Assessment: Do you want to hurt yourself or someone else? Other: police officers say yes. Patient says no. Onset of symptoms was May 30, 2020. 10:37 Method Of Arrival: Law Enforcement: [place] dm5 10:37 Acuity: MORENA 2 dm5 Historical: - PMHx: 10:41 Anxiety; Depression; PTSD; Schizophrenia; dm5 - PSHx: 10:41 SBO repair; dm5 - Immunization history:: Adult Immunizations up to date. - Family history:: not pertinent. - Social history:: Smoking status: unknown. Screenin:45 Abuse screen: Denies threats or abuse. Denies injuries from another. Nutritional ss screening: No deficits noted. Tuberculosis screening: Never had TB. Fall Risk None identified. Assessment: 10:45 Reassessment: Deneis SI/ HI at this time. General: Appears in no apparent distress. ss comfortable, Behavior is calm, cooperative, Denies fever, feeling ill, fatigue, chills. Pain: Denies pain. Neuro: Level of Consciousness is awake, alert, obeys commands, Oriented to person, place, time, situation, Soap Drier Tender are equal bilaterally Speech is normal, Facial symmetry appears normal, Pupils are PERRLA. Cardiovascular: Capillary refill < 3 seconds is brisk in bilateral. Respiratory: Airway Respiratory effort is even, unlabored, Respiratory pattern is regular, symmetrical. GI: Patient currently denies diarrhea, nausea, vomiting. : No signs and/or symptoms were reported regarding the genitourinary system. EENT: Nares are clear Oral mucosa is moist. Throat is clear. Derm: Skin is intact, is healthy with good turgor, Skin is Skin is pink, warm \\T\\ dry. normal. 12:03 Reassessment: Discharged delayed as mother and sister voiced concerns to Dr. Rodas. Will notify [facility] to evaluate patient. 14:00 Reassessment: Patient appears in no apparent distress at this time. Patient and/or ss family updated on plan of care and expected duration. Pain level reassessed. Patient is alert, oriented x 3, equal unlabored respirations, skin warm/dry/pink. Pt denies SI/ HI at this time. Awaiting [facility] to evaluate patient. 14:20 Reassessment: Pt is resting at this time. Eyes closed. Respirations even and unlabored. 14:46 Reassessment: [facility] on IPAD for evaluation. 16:00 Reassessment: Patient has signed all forms that were provided by [facility] to ss ensure appropriate follow and understanding. General: Behavior is calm, cooperative. Respiratory: Respiratory effort is even, unlabored. Psych: 10:45 [place] Suicide Severity Screening: In the past month, have you wished you were ss or wished you could go to sleep and not wake up? Patient responds "No." "In the past month, have you actually had any thoughts of killing yourself?" Patient responds "no." "In your lifetime, have you ever done anything, started to do anything, or prepared to do anything to end your life?" Patient responds "yes." Patient reports suicidal intent occurred greater than 3 months prior. Subjective: Delusions are denied, Hallucinations are denied. Objective: Patient is cooperative, Speech is normal, Affect is appropriate. Vital Signs: 10:45 BP 154 / 74; Pulse 72; Resp 18; Temp 97.2; Pulse Ox 100% on R/A; kj1 12:03 BP 134 / 72; Pulse 70; Resp 16; Pulse Ox 100% ; Pain 0/10; ss ED Course: 10:37 Patient arrived in ED. dm5 10:39 Sachin Rodas MD is Attending Physician. [facility] 10:40 Triage completed. dm5 10:45 Patient has correct armband on for positive identification. Bed in low position. Call ss light in reach. 10:45 Arm band placed on right wrist. ss 11:00 Inserted saline lock: 20 gauge in left antecubital area, using aseptic technique. Blood kj1 collected. 11:00 Initial lab(s) drawn, by me, sent to lab. kj1 12:03 Jero Hill MD is Referral Physician. charleen 12:44 Iraida Farmer, ABDIFATAH is Primary Nurse. 12:51 contacted [facility] to have a screener to evaluate pt. bd 16:14 No provider procedures requiring assistance completed. IV discontinued, intact, ss bleeding controlled, No redness/swelling at site. Pressure dressing applied. Administered Medications: 11:41 Drug: Ativan 1 mg Route: IVP; Site: right antecubital; dm5 14:53 Follow up: Response: No adverse reaction 16:14 Not Given (inappropriate at this time. ): Ativan 1 mg IVP once Outcome: 12:03 Discharge ordered by . [facility] 16:14 Discharged to home ambulatory. 16:14 Condition: good 16:14 Discharge instructions given to patient, Instructed on discharge instructions, follow up and referral plans. medication usage, Demonstrated understanding of instructions, follow-up care, medications, Prescriptions given X 1, Discharge planning papers from [facility] signed 16:16 Patient left the ED. Signatures: Zofia Wilson Deana, RN RN Sachin Velasquez MD MD cha Smirch, Shelby, RN RN Destiny Salas kj1 Corrections: (The following items were deleted from the chart) 11:18 11:17 Initial lab(s) drawn, by me, sent to lab. kj1 kj1
--- NOTE | 2020-05-30 12:03 | EDPHYS ---
Physician Documentation [facility] Name: Devon Hwang Age: 34 yrs Sex: Male : 1985 Arrival Date: 05/30/2020 Time: 10:37 Bed 7 Private MD: SANDIE Physician Sachin Rodas HPI: 05/30 11:49 This 34 yrs old Male presents to ER via Law Enforcement with complaints of charleen Psych Problem - paranoid, schizophrenia. 11:49 The patient presents to the emergency department with anxiety, depression, suicide charleen ideation, but the patient has no formulated plan. Onset: The symptoms/episode began/occurred just prior to arrival. Past psychiatric history: Prior diagnosis: depression, schizophrenia, Psychiatric medications include: none. Associated signs and symptoms: Pertinent positives; anxiety, depression. Severity of symptoms: At their worst the symptoms were mild in the emergency department the symptoms are unchanged. Historical: - PMHx: 10:41 Anxiety; Depression; PTSD; Schizophrenia; dm5 - PSHx: 10:41 SBO repair; dm5 - Immunization history:: Adult Immunizations up to date. - Family history:: not pertinent. - Social history:: Smoking status: unknown. ROS: 11:49 Constitutional: Negative for fever, chills, and weight loss, Eyes: Negative for injury, charleen pain, redness, and discharge, ENT: Negative for injury, pain, and discharge, Neck: Negative for injury, pain, and swelling, Cardiovascular: Negative for chest pain, palpitations, and edema, Respiratory: Negative for shortness of breath, cough, wheezing, and pleuritic chest pain, Abdomen/GI: Negative for abdominal pain, nausea, vomiting, diarrhea, and constipation, Back: Negative for injury and pain, : Negative for injury, bleeding, discharge, and swelling, MS/Extremity: Negative for injury and deformity, Skin: Negative for injury, rash, and discoloration, Neuro: Negative for headache, weakness, numbness, tingling, and seizure, Allergy/Immunology: Negative for hives, rash, and allergies, Endocrine: Negative for neck swelling, polydipsia, polyuria, polyphagia, and marked weight changes, Hematologic/Lymphatic: Negative for swollen nodes, abnormal bleeding, and unusual bruising. 11:49 Psych: Positive for anxiety, depression, not suicidal, no plan. Exam: 11:49 Constitutional: This is a well developed, well nourished patient who is awake, alert, charleen and in no acute distress. Head/Face: Normocephalic, atraumatic. Eyes: Pupils equal round and reactive to light, extra-ocular motions intact. Lids and lashes normal. Conjunctiva and sclera are non-icteric and not injected. Cornea within normal limits. Periorbital areas with no swelling, redness, or edema. ENT: Nares patent. No nasal discharge, no septal abnormalities noted. Tympanic membranes are normal and external auditory canals are clear. Oropharynx with no redness, swelling, or masses, exudates, or evidence of obstruction, uvula midline. Mucous membranes moist. Neck: Trachea midline, no thyromegaly or masses palpated, and no cervical lymphadenopathy. Supple, full range of motion without nuchal rigidity, or vertebral point tenderness. No Meningismus. Chest/axilla: Normal chest wall appearance and motion. Nontender with no deformity. No lesions are appreciated. Cardiovascular: Regular rate and rhythm with a normal S1 and S2. No gallops, murmurs, or rubs. Normal PMI, no JVD. No pulse deficits. Respiratory: Lungs have equal breath sounds bilaterally, clear to auscultation and percussion. No rales, rhonchi or wheezes noted. No increased work of breathing, no retractions or nasal flaring. Abdomen/GI: Soft, non-tender, with normal bowel sounds. No distension or tympany. No guarding or rebound. No evidence of tenderness throughout. Back: No spinal tenderness. No costovertebral tenderness. Full range of motion. Male : Normal genitalia with no discharge or lesions. Skin: Warm, dry with normal turgor. Normal color with no rashes, no lesions, and no evidence of cellulitis. MS/ Extremity: Pulses equal, no cyanosis. Neurovascular intact. Full, normal range of motion. Neuro: Awake and alert, GCS 15, oriented to person, place, time, and situation. Cranial nerves II-XII grossly intact. Motor strength 5/5 in all extremities. Sensory grossly intact. Cerebellar exam normal. Normal gait. 11:49 Psych: Behavior/mood is pleasant, cooperative, Affect is calm, Oriented to person, place, time, Patient has no thoughts/intents to harm self or others. Judgement / Insight is normal. Memory is normal. Recent memory is intact. Remote memory is intact. Delusions/hallucinations are not present. 11:58 ECG was reviewed by the Attending Physician. [facility] Vital Signs: 10:45 BP 154 / 74; Pulse 72; Resp 18; Temp 97.2; Pulse Ox 100% on R/A; kj1 12:03 BP 134 / 72; Pulse 70; Resp 16; Pulse Ox 100% ; Pain 0/10; ss MDM: 10:39 Patient medically screened. [facility] 11:52 Differential diagnosis: acute psychotic break, depression, psychosis secondary to charleen non-compliance. Data reviewed: vital signs, nurses notes, lab test result(s), EKG. Data interpreted: cardiopulmonary specialist: rate is 72 beats/min, rhythm is regular, Pulse oximetry: on room air is 100 %. Test interpretation: by ED physician or midlevel provider: ECG. Counseling: I had a detailed discussion with the patient and/or guardian regarding: the historical points, exam findings, and any diagnostic results supporting the discharge/admit diagnosis, lab results, radiology results, the need for outpatient follow up. 05/30 10:42 Order name: Acetaminophen [facility] 05/30 10:42 Order name: Basic Metabolic Panel [facility] 05/30 10:42 Order name: CBC with Diff [facility] 05/30 10:42 Order name: ETOH Level [facility] 05/30 10:42 Order name: Hepatic Function [facility] 05/30 10:42 Order name: PT-INR [facility] 05/30 10:42 Order name: Ptt, Activated [facility] 05/30 10:42 Order name: Salicylate; Complete Time: 11:57 [facility] 05/30 10:42 Order name: Urine Drug Screen; Complete Time: 11:57 [facility] 05/30 10:42 Order name: TSH; Complete Time: 12:02 [facility] 05/30 10:42 Order name: Acetaminophen Level; Complete Time: 12:02 [facility] 05/30 10:42 Order name: Basic Metabolic Panel; Complete Time: 12:02 [facility] 05/30 10:42 Order name: CBC with Automated Diff; Complete Time: 11:57 [facility] 05/30 10:42 Order name: Alcohol Serum/Plasma; Complete Time: 11:57 [facility] 05/30 10:42 Order name: EKG; Complete Time: 10:43 [facility] 05/30 10:42 Order name: EKG - Nurse/Tech; Complete Time: 12:45 [facility] 05/30 10:42 Order name: IV Saline Lock; Complete Time: 12:45 charleen 05/30 10:42 Order name: Labs collected and sent; Complete Time: 12:45 [facility] 05/30 10:42 Order name: Urine Dipstick-Ancillary (obtain specimen); Complete Time: 12:45 [facility] 05/30 10:42 Order name: Liver (Hepatic) Function; Complete Time: 12:02 EDDC 05/30 10:42 Order name: Protime (+INR); Complete Time: 11:57 EDMS 05/30 10:42 Order name: PTT, Activated Partial Thromb; Complete Time: 11:57 EDMS 05/30 11:09 Order name: Urine Dipstick--Ancillary (enter results) 05/30 11:10 Order name: Urine Dipstick-Ancillary EDDC 05/30 13:16 Order name: Diet Finger Food; Complete Time: 13:22 dm 05/30 14:12 Order name: SARS-COV-2 RT PCR EDMS EC:58 Rate is 84 beats/min. Rhythm is regular. QRS [place] is Normal. HI interval is normal. QRS charleen interval is normal. QT interval is normal. No Q waves. T waves are Normal. No ST changes noted. Clinical impression: Normal ECG and No evidence of ischemia. Interpreted by me. Reviewed by me. Administered Medications: 11:41 Drug: Ativan 1 mg Route: IVP; Site: right antecubital; dm5 14:53 Follow up: Response: No adverse reaction 16:14 Not Given (inappropriate at this time. ): Ativan 1 mg IVP once ss Disposition: 05/30/20 12:03 Discharged to Home. Impression: Major depressive disorder, recurrent, Anxiety disorder, unspecified. - Condition is Stable. - Discharge Instructions: Panic Attacks, Panic Attacks, [id number], Major Depressive Disorder, [id number], Major Depressive Disorder. - Prescriptions for Hydroxyzine HCl 25 mg Oral Tablet - take 1 tablet by ORAL route every 6 hours As needed; 30 tablet. - Medication Reconciliation Form, Thank You Letter, Antibiotic Education, Prescription Opioid Use form. - Follow up: Private Physician; When: 2 - 3 days; Reason: Recheck today's complaints, Continuance of care, Re-evaluation by your physician. Follow up: Jero Hill; When: 2 - 3 days; Reason: Recheck today's complaints, Re-evaluation by your physician. - Problem is new. - Symptoms have improved. Signatures: Dispatcher [employer] [facility] Pam Ovalle, RN RN Sachin Velasquez MD MD cha Smirch, Shelby, ABDIFATAH RN ss Corrections: (The following items were deleted from the chart) 13:29 11:08 CORONAVIRUS+.[email or web address].BRZ ordered. [facility] 16:16 12:03 05/30/2020 12:03 Discharged to Home. Impression: Major depressive disorder, ss recurrent; Anxiety disorder, unspecified. Condition is Stable. Discharge Instructions: Panic Attacks, Panic Attacks, [id number], Major Depressive Disorder, [id number], Major Depressive Disorder. Prescriptions for Hydroxyzine HCl 25 mg Oral Tablet - take 1 tablet by ORAL route every 6 hours As needed; 30 tablet. and Forms are Medication Reconciliation Form, Thank You Letter, Antibiotic Education, Prescription Opioid Use. Follow up: Private Physician; When: 2 - 3 days; Reason: Recheck today's complaints, Continuance of care, Re-evaluation by your physician. Follow up: Jero Hill; When: 2 - 3 days; Reason: Recheck today's complaints, Re-evaluation by your physician. Problem is new. Symptoms have improved. charleen
[2020-05-30 13:21] LABS: Urine Blood 1+ (NEG); Urine Glucose NEGATIVE (NEG); Urine Protein NEGATIVE (NEG); Urine Specific Gravity 1.025 (1.005-1.030); Urine pH 5.5 (5.0-7.0)
[2020-05-31 13:56] VITALS: TEMP 97.2; O2SAT 100
[2020-05-31 14:00] VITALS: BP 134/72
== END 2020-05-30 16:16 | disposition home or self-care (01) ==
LOC: ER 10:30
DX: F33.3 Major depressive disorder, recurrent, severe with psychotic symptoms (principal); F41.8 Other specified anxiety disorders; Z20.822 Contact with and (suspected) exposure to COVID-19
CPT/HCPCS: 93005; 85025; 80048; 36415; 80320; 80329 ×2; 85610; 80076; 80307 ×8; 85730; 84443; 81003; U0003; 96374; 99284